=== PATIENT | male | born 1960 | race Caucasian/White ===

== ENCOUNTER → 2017-09-02 | Outpatient (CLI) | payer MEDICARE ==
--- NOTE | 2017-09-02 19:49 | MR ---
EXAMINATION TYPE: MR brain wo/w con DATE OF EXAM: 09/02/2017 7:29 PM COMPARISON: NONE HISTORY: Hypertensive, Papilledema w increased intracranial pressure Pt has history as a child of falling down cement stairs, resulting in deformed skull CONTRAST: Patient received 7.5 mL intravenous Gadavist gadolinium contrast. Multiplanar and multispin-echo imaging of the brain was performed . Pre and post contrast enhanced i mages are obtained. The ventricles, basal cisterns and sulci overlying the cerebral convexities are mildly enlarged. There is evidence of mild periventricular white matter ischemic demyelination. Remote area of encephalomalacia right frontal parietal region with surrounding gliosis. Calvarial def ect may be postoperative in nature or posttraumatic in nature. Remote deep white matter insults are also noted. No acute edema is seen on diffusion weighted imaging. Incidental partially empty sella noted. There is no evidence for midline shift or mass effect. Acute intracranial hemorrhage or extra-axial collection is not evident. No enhancing lesions are seen. The mastoid air cells are well-aerated. Chronic paranasal sinusitis. IMPRESSION: 1. Remote area of encephalomalacia right frontal parietal region with surrounding gliosis. Calvarial defect may be postoperative in nature or posttraumatic in nature. 2. No definite optic nerve edema. Consider dedicated evaluation of the orbits for improved characteri zation.
== END | disposition home or self-care (01) ==
LOC: RADMRIMAIN 17:47
PROVIDERS: ATTEND Ophthalmology
DX: H47.11 Papilledema associated with increased intracranial pressure (principal)
CPT/HCPCS: 82565; 84520; 70553; 36415; A9581

== ENCOUNTER → 2018-05-03 | Outpatient (CLI) | payer MEDICARE ==
[2018-05-03 12:05] LABS: HCT 48.5 % (39.0-53.0); HGB 15.9 gm/dL (13.0-17.5); MCH 30.4 pg (25.0-35.0); MCHC 32.9 g/dL (31.0-37.0); MCV 92.4 fL (80.0-100.0); Mean Platelet Volume 6.8; Platelet Count 217 k/uL (150-450); RBC 5.25 m/uL (4.30-5.90); RDW 14.1 % (11.5-15.5); WBC 6.5 k/uL (3.8-10.6)
[2018-05-03 12:16] LABS: Anion Gap 7 mmol/L; Blood Urea Nitrogen 18 mg/dL (9-20); Carbon Dioxide 27 mmol/L (22-30); Chloride 107 mmol/L (98-107); Potassium 4.4 mmol/L (3.5-5.1); Sodium 141 mmol/L (137-145)
== END | disposition home or self-care (01) ==
LOC: LABPAT 11:12
PROVIDERS: ATTEND Internal Medicine Interventional Cardiology
DX: Z01.812 Encounter for preprocedural laboratory examination (principal); I25.5 Ischemic cardiomyopathy; I25.10 Atherosclerotic heart disease of native coronary artery without angina pectoris; I10 Essential (primary) hypertension; E78.2 Mixed hyperlipidemia
CPT/HCPCS: 36415; 80051; 82565; 84520; 85027

== ENCOUNTER 2018-05-17 10:42 | Day surgery (SDC) | payer MEDICARE ==
[2018-05-13 09:13] VITALS: BMI 29.4
[~2018-05-17 10:42] MED LIST: ALPRAZolam 0.25 MG TAB PO PRN; ALPRAZolam 0.5 MG TAB PO PRN; ASPIRIN 325 MG TAB PO STA; ATORVASTATIN 80 MG TAB PO STA; NITROGLYCERIN SL TABS 0.4 MG TAB SUBLINGUAL PRN; SODIUM CHLORIDE 0.9% 1,000 ML in EMPTY BAG 1 BAG IV ONE
[2018-05-17 11:09] VITALS: TEMP 98.1
[2018-05-17] MEDS ORDERED: VERAPAMIL 2.5 MG/ML 2 ML AMP ONE (12:10)
[2018-05-17] MEDS ORDERED: LIDOCAINE 1% INJ 10MG/ML (20 ML MDV) ONE (12:10)
[2018-05-17] MEDS ORDERED: MIDAZOLAM 2 MG/2 ML VIAL ONE (12:10)
[2018-05-17] MEDS ORDERED: HEPARIN SODIUM 1,000 UN/ML (10ML VL) ONE (12:10)
[2018-05-17] MEDS ORDERED: MIDAZOLAM 2 MG/2 ML VIAL IVP ONE (12:21)
[2018-05-17] MEDS ORDERED: LIDOCAINE 1% INJ 10MG/ML (20 ML MDV) SQ ONE (12:22)
[2018-05-17] MEDS ORDERED: VERAPAMIL SYRINGE (5 MG/10 ML) INTRAARTER ONE (12:25)
[2018-05-17] MEDS ORDERED: HEPARIN SODIUM 1,000 UN/ML (10ML VL) IV ONE (12:27)
[2018-05-17] MEDS ORDERED: IOPAMIDOL-370 125ML BTL INJ ONE (12:42)
[2018-05-17] MEDS ORDERED: RX INFO: IV CONTRAST WAS GIVEN 1 EACH MISC MISCELLANE PRN (12:43)
[2018-05-17] MEDS ORDERED: SODIUM CHLORIDE 0.9% 1,000 ML IV SCH (12:45)
--- NOTE | 2018-05-17 13:15 | CC ---
CARDIAC CATHETERIZATION REPORT DATE OF SERVICE: May 17, 2018 PERFORMING PHYSICIAN: Ray Nguyen MD, substation operator automatic. PROCEDURE PERFORMED: 1. Selective right and left coronary angiogram. 2. Left heart catheterization. INDICATION: This is a pleasant 57-year-old gentleman with known history of coronary artery disease and prior stenting of the proximal and mid RCA as well as stenting of the mid LAD, was experiencing chest discomfort and exertional dyspnea and underwent myocardial perfusion imaging stress test and that revealed reversible defect involving the lateral wall. Because of that, a heart catheterization was advised. APPROACH: Right radial artery. COMPLICATION: None. LEVEL OF SEDATION: Moderate with sedation length of 18 minutes. PROCEDURE DESCRIPTION: After obtaining an informed consent, the patient was brought to the laborer hoisting. The right radial artery was cannulated using micropuncture technique, the micropuncture wire passed easily then I placed a 6-[place] sheath in the right radial artery. After that, I gave the patient 2 mg of verapamil IA and 6000 units heparin IV. Selective right and left coronary angiogram performed using JR4 and JL3.5 catheters. Left heart catheterization was performed using JR4 catheter which flipped into the LV. Then I did pullback across the aortic valve. The procedure was completed without any complication. SELECTIVE CORONARY ANGIOGRAM: 1. The right coronary artery is a large caliber vessel. It is a dominant vessel. The proximal and mid RCA are stented and the stents are patent. The mid RCA is normal after that and the RCA distally is normal. It bifurcates into PDA and PLV branches, both have mild disease only. 2. The left main: The left main has plaque appeared to be in the range of 30%. Bifurcates into left circumflex, ramus intermedius, and left anterior descending artery. 3. The left circumflex is a large caliber vessel. It is a nondominant vessel. The left circumflex is a medium caliber vessel. It is a nondominant vessel. The proximal circumflex appeared to be angiographically normal and gives rise into a small OM, which appeared to be angiographically normal and the mid and distal circumflex are normal as well. 4. The LAD: The proximal LAD appears to have a plaque in the range of 30%. This is by the bifurcation of a diagonal which appeared to be angiographically normal. The mid LAD appeared to be stented and the stent is patent. The LAD distally appeared to be angiographically normal. HEMODYNAMICS: The left ventricular end-diastolic pressure was 16 to 18 mmHg without significant gradient across the aortic valve. CONCLUSION: 1. Patent stent in the proximal and mid right coronary artery. 2. Patent stent in the mid left anterior descending artery. 3. Plaque in the left main coronary artery appeared to be in the range of 30%. POSTPROCEDURE MANAGEMENT: 1. Maximize medical treatment. 2. Follow up with the patient. MMODL / IJN: [id number] /
--- NOTE | 2018-05-17 13:36 | LTR ---
May 17, 2018 RE: Kyle Petr Dear Dr. Carrillo: Kyle Humphreys underwent a heart catheterization today and that revealed patent stent in both the right coronary artery and left anterior descending artery with disease involving the left main appeared to be in the range of 30% only. I did recommend maximized medical treatment and risk factors modification including aggressive cholesterol control. I will continue following up with him. I want to thank you for allowing me to participate in his care and please do not hesitate to call if you have any question or concern. Sincerely, MD MATHEW Carvalho / SANDRITA: [id number] /
[2018-05-17 16:03] VITALS: BP 146/88; PULSE 64; RESP 18
== END 2018-05-17 17:40 | disposition home or self-care (01) ==
LOC: CATHCVL 10:42
PROVIDERS: ATTEND Internal Medicine Interventional Cardiology
DX: I25.110 Atherosclerotic heart disease of native coronary artery with unstable angina pectoris (principal); I10 Essential (primary) hypertension; Z87.891 Personal history of nicotine dependence; Z95.5 Presence of coronary angioplasty implant and graft; E78.5 Hyperlipidemia, unspecified; I25.5 Ischemic cardiomyopathy; E78.00 Pure hypercholesterolemia, unspecified; Z79.82 Long term (current) use of aspirin; Z79.899 Other long term (current) drug therapy; Z91.09 Other allergy status, other than to drugs and biological substances
CPT/HCPCS: 93458; C1769; C1894; J2250; J2001; J1644; Q9967

== ENCOUNTER → 2019-01-26 | Outpatient (CLI) | payer MEDICARE ==
[2019-01-26 11:33] LABS: Basophils % (A) 1 %; Eosinophils # (A) 0.2 k/uL (0-0.7); Eosinophils % (A) 3 %; HCT 46.4 % (39.0-53.0); HGB 15.4 gm/dL (13.0-17.5); Lymphocytes # (A) 2.3 k/uL (1.0-4.8); Lymphocytes % (A) 27 %; MCH 30.6 pg (25.0-35.0); MCHC 33.2 g/dL (31.0-37.0); Mean Platelet Volume 7.3; Monocytes # (A) 0.5 k/uL (0-1.0); Monocytes % (A) 6 %; Neutrophils # (A) 5.1 k/uL (1.3-7.7); Neutrophils % (A) 61 %; Platelet Count 227 k/uL (150-450); Potassium 4.2 mmol/L (3.5-5.1); RBC 5.04 m/uL (4.30-5.90); RDW 15.7 % (11.5-15.5); WBC 8.5 k/uL (3.8-10.6)
== END | disposition home or self-care (01) ==
LOC: LABWHC1 10:32
PROVIDERS: ATTEND Orthopaedic Surgery
DX: Z01.812 Encounter for preprocedural laboratory examination (principal); G56.01 Carpal tunnel syndrome, right upper limb
CPT/HCPCS: 36415; 80051; 85025

== ENCOUNTER 2019-02-02 08:00 | Day surgery (SDC) | payer MEDICARE ==
[2019-01-26 16:04] VITALS: BMI 29.7
--- NOTE | 2019-01-31 21:47 | HP ---
HISTORY AND PHYSICAL DATE OF SURGERY: 02/02/2019 Kyle Humphreys is a 58-year-old patient seen with symptomatic right carpal tunnel syndrome. After treatment options were discussed with him, he elected to proceed with decompression of right median nerve. Consent regarding the procedure was obtained. PAST MEDICAL HISTORY: 1. Hypertension. 2. Hyperlipidemia. 3. Cardiovascular disease. 4. Depression. PAST SURGICAL HISTORY: Cardiac catheterization with stent insertion. DAILY MEDICATIONS: 1. Aspirin. 2. Atorvastatin. 3. Isosorbide. 4. Metoprolol. 5. Quinapril. 6. Zantac. ALLERGIES: NIACIN. SOCIAL HISTORY: He smokes half pack of cigarettes daily. PHYSICAL EVALUATION OF HIS RIGHT HAND: He has a positive carpal compression and carpal Tinel's causing numbness and tingling to the median nerve distribution. There is some decreased sensation throughout the median nerve distribution. There is no tenderness along the A1 isabel areas. He has good perfusion distally and a good radial pulse present. RADIOGRAPHS: Radiographs of the right wrist revealed some osteoarthritic changes. EMG of the right upper extremity revealed carpal tunnel syndrome. IMPRESSION: 1. Right carpal tunnel syndrome. 2. Hypertension. 3. Hyperlipidemia. 4. Cardiovascular disease. 5. Gastroesophageal reflux disease. PLAN: Decompression of right median nerve. MMODL / IJN: [id number] /
[~2019-02-02 08:00] MED LIST changes: -ALPRAZolam 0.25 MG TAB PO PRN; -ALPRAZolam 0.5 MG TAB PO PRN; -ASPIRIN 325 MG TAB PO STA; -ATORVASTATIN 80 MG TAB PO STA; +DEXAMETHASONE SOD PHOSPHATE 10 MG/ML 1 ML VIAL IV ONE; +HYDROmorphone 0.5 MG/0.5 ML SYRINGE IVP PRN; +LACTATED RINGERS 1,000 ML IV SCH; +MIDAZOLAM 2 MG/2 ML VIAL IV PRN; -NITROGLYCERIN SL TABS 0.4 MG TAB SUBLINGUAL PRN; +ONDANSETRON 4 MG/2 ML VIAL IVP ONE; +Pre Op ABX Message 1 EACH MISC MISCELLANE ONE; +SCOPOLAMINE 1.5MG/72HR PATCH TRANSDERM ONE; -SODIUM CHLORIDE 0.9% 1,000 ML in EMPTY BAG 1 BAG IV ONE
[2019-02-02 08:30] VITALS: TEMP 97.2
[2019-02-02] MEDS ORDERED: MIDAZOLAM 2 MG/2 ML VIAL ONE (09:57)
[2019-02-02] MEDS ORDERED: fentaNYL (PF) 50 MCG/ML 2 ML AMP ONE (09:57)
[2019-02-02] MEDS ORDERED: PROPOFOL 10 MG/ML 20 ML VIAL IV ONE (09:57)
[2019-02-02] MEDS ORDERED: BUPIVACAINE (PF) 0.25% 30 ML VIAL SQ ONE ×2 (10:12→10:18)
--- NOTE | 2019-02-02 10:26 | P.OP ---
Date of Procedure: 02/02/19 Preoperative Diagnosis: Right carpal tunnel syndrome Postoperative Diagnosis: Right carpal tunnel syndrome Procedure(s) Performed: Decompression right median nerve Anesthesia: MAC, local Surgeon: Suleiman Francis Estimated Blood Loss (ml): 0 Pathology: none sent Condition: stable Disposition: PACU Indications for Procedure: 58-year-old patient seen with symptomatic right carpal syndrome. After treatment options were discussed, he elected to proceed with decompression right median nerve. Operative Findings: see description of procedure Description of Procedure: Patient was taken to the operative suite. The patient received preoperative IV antibiotics. The patient underwent IV sedation by the department of anesthesia. A well-padded tourniquet was placed proximal right upper extremity. The right upper extremity was prepped and draped in the normal sterile orthopedic fashion. The proposed incision site was infiltrated with 10 mL quarter percent plain Marcaine. When sufficient local analgesia was noted the extremity was elevated and tourniquet was insufflated to 250. An incision was now made beginning at the distal volar wrist crease extending distally approximately 3 cm in line with the fourth metacarpal sharply through skin. I dissected down through the palmar fascia to the transverse carpal ligament. I then incised the transverse carpal ligament. I released the transverse carpal ligament proximally and distally with blunt Metzenbaums. There was good complete release of the transverse carpal ligament was good decompression of the nerve. There was good hemostasis. The wound was irrigated. The skin margins were proximal nylon suture. Sterile dressings were applied. The tourniquet was released and immediate capillary refill noted of the extremity. The patient was now awakened, transferred to recovery in stable condition having tolerated procedure well.
[2019-02-02 10:33] VITALS: RESP 18
[2019-02-02 11:11] VITALS: BP 137/78; PULSE 78
== END 2019-02-02 11:13 | disposition home or self-care (01) ==
LOC: OR 08:00
PROVIDERS: ATTEND Orthopaedic Surgery
DX: G56.01 Carpal tunnel syndrome, right upper limb (principal); I10 Essential (primary) hypertension; E78.5 Hyperlipidemia, unspecified; I25.10 Atherosclerotic heart disease of native coronary artery without angina pectoris; Z95.5 Presence of coronary angioplasty implant and graft; I25.2 Old myocardial infarction; F32.9 Major depressive disorder, single episode, unspecified; K21.9 Gastro-esophageal reflux disease without esophagitis; F17.210 Nicotine dependence, cigarettes, uncomplicated; Z79.82 Long term (current) use of aspirin; Z79.899 Other long term (current) drug therapy; Z88.8 Allergy status to other drugs, medicaments and biological substances
CPT/HCPCS: 64721; J2250; J1100; J0690; J2405; J3010; J2704

== ENCOUNTER → 2019-07-21 | Outpatient (CLI) | payer MEDICARE ==
--- NOTE | 2019-07-23 19:34 | MR ---
MR pancreas, MRCP with and without contrast HISTORY: Pancreatic cyst Multiplanar multisequence imaging through the pancreas, biliary system, three-dimensional reconstruct ions performed on an alternate workstation. Previous CT scan from outside institution is unavailable for correlation At the level of the uncinate process of the pancreas there is a T1 intermediate, T2 hyperintense focu s with internal septations measuring approximately 2 cm in greatest transverse dimension by 1.7 cm in AP dimension by 2.8 cm in cephalad to caudal dimension. There is possibly a communication with the p ancreatic duct on T2 and three-dimensional reconstructions. There is no ductal dilation. There is no evident enhancement, no enhancing mural nodule at the. Signal drop in the liver on out of phase imaging suggests hepatic steatosis. No evident adrenal mass. There is a small hiatal hernia. Lung bases are clear. Gallbladder is normal. Kidneys and adrenal gla nds are within normal limits. Spleen is unremarkable. There is no bowel obstruction. Aorta shows norm al caliber. No retroperitoneal adenopathy or ascites. IMPRESSION: Favor intraductal papillary mucinous neoplasm. Follow-up is recommended to assess for sta bility, any interval change.
== END | disposition home or self-care (01) ==
LOC: RADMRIMAIN 16:50
PROVIDERS: ATTEND Surgery
DX: K86.2 Cyst of pancreas (principal)
CPT/HCPCS: 74183; A9585

== ENCOUNTER → 2020-01-05 | Outpatient (CLI) | payer MEDICARE ==
--- NOTE | 2020-01-06 03:03 | MR ---
EXAMINATION TYPE: MR pancreas / mrcp wo/w con DATE OF EXAM: 01/05/2020 COMPARISON: HISTORY: Evaluate pancreatic cyst CONTRAST: Standard multiplanar, multisequence MRI departmental protocol utilizing 9 mL intravenous Gadavist mere olinium contrast. The liver shows no focal defect. Gallbladder appears normal. Bile ducts are not dilated. There is no evidence of pleural effusion. Heart size appears normal. Spleen appears normal. Stomach appears jem l. Pancreatic duct appears normal. There is 16mm thin-walled septated cystic area in the posterior aspec t of the head of the pancreas. This is in the uncinate process. Previous exam measures 14 mm. The stomach appears normal. Duodenum appears normal. There is no adrenal mass. Kidneys have normal si ze. There is no hydronephrosis. There is 7 mm cortical cyst anterior right kidney. Ureters are not di lated. There is no evidence of retroperitoneal adenopathy. There is no ascites. Contrast images show no enhancement of the pancreatic cystic mass. There is no pathologic abdominal enhancement. IMPRESSION: There is thin walled septated nonenhancing cystic mass in the posterior pancreatic head that is not c hanged allowing for error of measurement compared to old exam. This suggests a benign etiology. This could BE a pseudocyst. Otherwise negative exam.
== END | disposition home or self-care (01) ==
LOC: RADMRIMAIN 12:31
PROVIDERS: ATTEND Surgery
DX: K86.2 Cyst of pancreas (principal)
CPT/HCPCS: 74183; A9585

== ENCOUNTER → 2020-01-11 | Outpatient (CLI) | payer MEDICARE ==
--- NOTE | 2020-01-11 13:56 | US ---
EXAMINATION TYPE: US venous doppler duplex UE RT DATE OF EXAM: 01/11/2020 COMPARISON: NONE CLINICAL HISTORY: M79.621 Pain in right upper arm. Recent IV SIDE PERFORMED: Right Grayscale, color doppler, spectral doppler imaging performed of the deep veins of the right upper ext remity. There is normal flow, compressibility and vascular waveforms noted within the deep veins. Visualized portions of the right internal jugular vein, subclavian vein, axillary vein, brachial vei ns, the cephalic vein, radial veins and ulnar veins are unremarkable. Basilic vein shows low level internal echoes and lack of color flow. Right Arm: Negative for DVT. Positive for SVT in the right basilic vein IMPRESSION:
== END | disposition home or self-care (01) ==
LOC: RADUSWWP 12:24
PROVIDERS: ATTEND Internal Medicine
DX: M79.621 Pain in right upper arm (principal)

== ENCOUNTER 2021-01-08 10:25 | Day surgery (SDC) | payer MEDICARE ==
[2021-01-07 09:07] VITALS: BMI 31.6
--- NOTE | 2021-01-07 18:44 | HP ---
HISTORY AND PHYSICAL DATE OF SURGERY: 01/08/2021 Kyle Humphreys is a 60-year-old gentleman seen with symptomatic left carpal tunnel syndrome. We discussed options for treatment. He elected to proceed with decompression left median nerve. Consent was obtained his. PAST MEDICAL HISTORY: Hyperlipidemia, hypertension, coronary artery disease. PAST SURGICAL HISTORY: Cardiac catheterization with stent insertion. DAILY MEDICATIONS: Atorvastatin, furosemide, isosorbide, metoprolol, nitroglycerin as needed, quinapril. ALLERGIES: None reported. SOCIAL HISTORY: Smokes half pack of cigarettes a day. PHYSICAL EVALUATION OF THE LEFT WRIST: He has a positive carpal compression and carpal Tinel's causing increased numbness and tingling throughout the median nerve distribution. He does have some decreased sensation throughout the median nerve distribution. He is nontender along the A1 isabel sites. He has a good radial pulse. There is good perfusion distally. RADIOGRAPHS: Radiographs of the left hand and wrist reveal some osteoarthritic changes. IMPRESSION: 1. Left carpal tunnel syndrome. 2. Hypertension. 3. Hyperlipidemia. 4. Gastroesophageal reflux disease. 5. coronary artery disease. PLAN: Decompression left median nerve. MMODL / IJN: [id number] /
[~2021-01-08 10:25] MED LIST changes: -DEXAMETHASONE SOD PHOSPHATE 10 MG/ML 1 ML VIAL IV ONE; -HYDROmorphone 0.5 MG/0.5 ML SYRINGE IVP PRN; +LIDOCAINE 1% (10MG/ML) FOR IV START INTRADERMA PRN; -MIDAZOLAM 2 MG/2 ML VIAL IV PRN; -ONDANSETRON 4 MG/2 ML VIAL IVP ONE; -Pre Op ABX Message 1 EACH MISC MISCELLANE ONE; -SCOPOLAMINE 1.5MG/72HR PATCH TRANSDERM ONE
[2021-01-08 11:09] VITALS: RESP 16; TEMP 97.4
[2021-01-08] MEDS ORDERED: ONDANSETRON 4 MG/2 ML VIAL ONE (11:20)
[2021-01-08] MEDS ORDERED: DEXAMETHASONE SOD PHOSPHATE 4 MG/ML 1 ML VIAL IVP ONE (11:25)
[2021-01-08] MEDS ORDERED: MIDAZOLAM 2 MG/2 ML VIAL ONE (12:02)
[2021-01-08] MEDS ORDERED: PROPOFOL 10 MG/ML 20 ML VIAL IV ONE (12:02)
[2021-01-08] MEDS ORDERED: fentaNYL (PF) 50 MCG/ML 2 ML AMP ONE (12:02)
[2021-01-08] MEDS ORDERED: BUPIVACAINE (PF) 0.25% 30 ML VIAL SQ ONE (12:04)
--- NOTE | 2021-01-08 12:42 | P.OP ---
Date of Procedure: 01/08/21 Preoperative Diagnosis: Left carpal tunnel syndrome Postoperative Diagnosis: Left carpal tunnel syndrome Procedure(s) Performed: Decompression left median nerve Anesthesia: MAC, local Surgeon: Suleiman Francis Estimated Blood Loss (ml): 1 Pathology: none sent Condition: stable Disposition: PACU Indications for Procedure: 60-year-old patient seen with symptomatic left carpal tunnel syndrome. After treatment options were discussed, he elected to proceed with decompression left median nerve. Consent was obtained. Operative Findings: See description of procedure Description of Procedure: The patient was taken to the operative suite. He received preoperative IV antibiotics. He underwent IV sedation by the department of anesthesia. A well- padded tourniquet was placed along the proximal left upper extremity. Left upp er extremity was prepped and draped in the normal sterile orthopedic fashion. The proposed incision site was infiltrated with 10 mL quarter percent plain Marcaine. When sufficient local analgesia was noted the extremity was elevated and tourniquet was insufflated to 250. I now made an incision beginning at the distal volar wrist crease extending distally approximately 3 cm in line with the fourth metacarpal sharply through skin. I dissected down through the palmar fascia to the transverse carpal ligament. I made a small incision to the transverse carpal ligament. I now released. Transverse carpal ligament proximally and distally with blunt Metzenbaums. I noted complete release of the ligament with good decompression of the nerve. The wound was irrigated. We had good hemostasis. The skin margins were proximal nylon suture. Sterile dressings were applied. The tourniquet was released with immediate capillary refill of the entire hand and all digits noted. The patient was then awakened, transferred to recovery in stable condition.
[2021-01-08 13:11] VITALS: BP 129/75; PULSE 74
== END 2021-01-08 13:36 | disposition home or self-care (01) ==
LOC: OR 10:25
PROVIDERS: ATTEND Orthopaedic Surgery
DX: G56.02 Carpal tunnel syndrome, left upper limb (principal); I25.10 Atherosclerotic heart disease of native coronary artery without angina pectoris; I10 Essential (primary) hypertension; E78.5 Hyperlipidemia, unspecified; K21.9 Gastro-esophageal reflux disease without esophagitis; J44.9 Chronic obstructive pulmonary disease, unspecified; Z95.5 Presence of coronary angioplasty implant and graft; F17.210 Nicotine dependence, cigarettes, uncomplicated; Z79.899 Other long term (current) drug therapy; Z79.82 Long term (current) use of aspirin; Z91.048 Other nonmedicinal substance allergy status
CPT/HCPCS: 64721; J2250; J1100; J0690; J2405; J3010; J2704

== ENCOUNTER → 2022-11-28 | Outpatient (CLI) | payer MEDICARE ==
--- NOTE | 2022-11-28 20:14 | PE ---
EXAMINATION TYPE: PET CT fusion skull to thigh DATE OF EXAM: 11/28/2022 CLINICAL INDICATION:Male, 62 years old with history of R91.1; TECHNIQUE: Following the intravenous administration of 13.7 mCi of F-18 FDG, whole body images are performed from the skull base to the midthigh. Images are reviewed on the computer in the coronal, a xial, and sagittal planes. Reconstructed rotating images are created on independent workstation and reviewed on the computer. A non-contrast CT is performed in conjunction with the PET scan. Glucose level 88 mg/dL COMPARISON: CT 07/28/2022, PET/CT None, FINDINGS: Mediastinal SUV mean is 1.1. Hepatic parenchyma SUV mean is 1.9. SKULL BASE AND NECK: No suspicious radiotracer activity. Focus of uptake within the left jaw compati ble with periodontal disease. SUV 4.4. CHEST, MEDIASTINUM, AND HILAR REGION: Subcentimeter pulmonary nodules seen on prior CT are below threshold for PET/CT. Consolidation changes in the left lung base no longer visualized. No abnormal FDG activity. ABDOMEN AND PELVIS: No suspicious radiotracer activity. OSSEOUS STRUCTURES: No suspicious radiotracer activity. Left rotator cuff degeneration with max SUV [address]: Atherosclerosis of the carotid bifurcations. Moderate coronary artery atherosclerosis. Bila teral gynecomastia changes. Questionable gallstone present. Fat-containing umbilical hernia. Bilatera l fat-containing inguinal hernias. IMPRESSION: No suspicious radiotracer activity. Consolidation changes in the left lung base have resolved and lik joanna represented an infectious/inflammatory process on prior CT. Consider follow-up CT for sub-5 mm pu lmonary nodules in 1 year.
== END | disposition home or self-care (01) ==
LOC: RADPETMAIN 12:07
PROVIDERS: ATTEND Internal Medicine
DX: R91.1 Solitary pulmonary nodule (principal)
CPT/HCPCS: 78815; A9552

== ENCOUNTER → 2023-09-14 | Outpatient (CLI) | payer MEDICARE ==
[2023-09-14 21:09] LABS: ALT 19 U/L (10-49); AST 16 U/L (14-35); Albumin 4.2 g/dL (3.8-4.9); Albumin/Globulin Ratio 1.35 Ratio (1.60-3.17); Alkaline Phosphatase 76 U/L (41-126); Blood Urea Nitrogen 11.3 mg/dL (9.0-27.0); Calcium 9.6 mg/dL (8.7-10.3); Carbon Dioxide 24.1 mmol/L (21.6-31.8); Chloride 104 mmol/L (96-109); Globulin 3.1 g/dL (1.6-3.3); Glucose 106 mg/dL (70-110); Potassium 4.4 mmol/L (3.5-5.5); Sodium 143 mmol/L (135-145); Total Bilirubin 0.4 mg/dL (0.3-1.2); Total Protein 7.3 g/dL (6.2-8.2)
[2023-09-14 21:52] LABS: Basophils # (A) 0.05 X 10*3/uL (0.00-0.10); Basophils % (A) 0.4 %; Eosinophils # (A) 0.08 X 10*3/uL (0.04-0.35); Eosinophils % (A) 0.7 %; HCT 48.2 % (39.6-50.0); HGB 15.1 g/dL (13.0-17.0); Lymphocytes # (A) 1.77 X 10*3/uL (0.90-5.00); Lymphocytes % (A) 15.4 %; MCH 27.9 pg (27.0-32.0); MCHC 31.3 g/dL (32.0-37.0); MCV 89.1 FL (80.0-97.0); Monocytes # (A) 0.98 X 10*3/uL (0.20-1.00); Monocytes % (A) 8.5 %; NRBC Per 100 WBC 0 X 10*3/uL (0.00-0.01); Neutrophils # (A) 8.55 X 10*3/uL (1.80-7.70); Neutrophils % (A) 74.7 %; Platelet Count 277 X 10*3/uL (140-440); RBC 5.41 X 10*6/uL (4.40-5.60); RDW 16.1 % (11.5-14.5); WBC 11.47 X 10*3/uL (4.50-10.00)
== END | disposition home or self-care (01) ==
LOC: LABWHC1 15:38
PROVIDERS: ATTEND Internal Medicine
DX: R09.1 Pleurisy (principal)
CPT/HCPCS: 36415; 80053; 85025; 85379

== ENCOUNTER → 2023-12-20 | Outpatient (CLI) | payer MEDICARE ==
--- NOTE | 2023-12-20 16:04 | CTL ---
EXAMINATION TYPE: CT Low Dose Lung DATE OF EXAM ORDERED: 12/20/2023 History: Lung cancer screening CT DLP: 101.[address] CTDI: 2.6 mGy Automated exposure control for dose reduction was used. Comparison: 07/28/2022 TECHNIQUE: Low dose computed tomography scan was performed through the chest at 1 mm thick sections a nd reconstructed images in multiple planes at 1 mm and [address] DIAGNOSTIC QUALITY: Satisfactory FINDINGS: There are mild emphysematous changes. There are multiple stable sub-5 mm calcified nodules in the right lung. No new or suspicious lung mas ses or nodules are seen. There is no airspace consolidation or abnormal interstitial density. The great vessels chest are normal as no mediastinal, hilar or axillary adenopathy. There is no pleural effusion or pneumothorax. Limited scanning through the upper abdomen reveals no significant abnormality. No focal osseous lesions are seen. IMPRESSION: 1. Multiple stable calcified granulomas. Lung metastases category 1 negative. Continue routine screen ing at yearly intervals. 2. No acute cardiopulmonary disease. 3. Mild emphysematous changes.
== END | disposition home or self-care (01) ==
LOC: RADCTMAIN 15:08
PROVIDERS: ATTEND Internal Medicine
DX: Z12.2 Encounter for screening for malignant neoplasm of respiratory organs (principal); J84.10 Pulmonary fibrosis, unspecified; Z87.891 Personal history of nicotine dependence
CPT/HCPCS: 71271

== ENCOUNTER 2024-03-24 09:15 | Day surgery (SDC) | payer MEDICARE ==
[2024-03-24] MEDS: IV FLUID CONTINUATION 1,000 ML IV ONE (09:33)
[2024-03-24] MEDS: LACTATED RINGERS 1,000 ML IV SCH (09:47)
[2024-03-24 09:50] VITALS: RESP 16; TEMP 97
[2024-03-24] MEDS ORDERED: PROPOFOL 10 MG/ML 20 ML VIAL IV ONE (10:29)
[2024-03-24] MEDS ORDERED: LIDOCAINE 1% INJ 10MG/ML (20 ML MDV) ONE (10:29)
--- NOTE | 2024-03-24 10:55 | P.PCN ---
Date of Procedure: 03/24/24 Procedure(s) Performed: BRIEF HISTORY: Patient is a 63-year-old pleasant white meat scheduled for an elective colonoscopy as a part of screening for colon cancer/positive Cologuard PROCEDURE PERFORMED: Colonoscopy. PREOPERATIVE DIAGNOSIS: Positive Cologuard. IV sedation per Anesthesia. PROCEDURE: After informed consent was obtained, the patient, was brought into the endoscopy unit. IV sedation was administered by Anesthesia under continuous monitoring. Digital rectal examination was normal. Initially the Olympus CF-160 flexible video colonoscope was then inserted in the rectum, gradually advanced into the cecum without any difficulty. Careful examination was performed as the scope was gradually being withdrawn. Ileocecal valve and the appendiceal orifice were visualized and appeared normal. Prep was excellent. Mucosa of the cecum, ascending colon, transverse colon, descending colon, sigmoid colon, and rectum appeared normal. Retroflexion was performed in the rectum and no lesions were seen. The patient tolerated the procedure well. IMPRESSION: Normal-appearing colon from rectum to cecum with no evidence of colorectal neoplasia. RECOMMENDATIONS: Findings of this examination were discussed with the patient as well as his family. He was advised to have repeat screening colonoscopy in 10 years..
[2024-03-24 11:03] VITALS: PULSE 71
[2024-03-24 11:20] VITALS: BP 111/70
== END 2024-03-24 11:34 | disposition home or self-care (01) ==
LOC: ORWHC2ENDO 09:15
PROVIDERS: ATTEND Internal Medicine Gastroenterology
CPT/HCPCS: 45378

== ENCOUNTER → 2024-04-27 | Outpatient (CLI) | payer MEDICARE ==
[2024-04-27 09:56] LABS: African American GFR (CKD) >90 (>60 ml/min/1.73 sqM); Blood Urea Nitrogen 17 mg/dL (9-20); Non-African American GFR(CKD) >90 (>60 ml/min/1.73 sqM)
--- NOTE | 2024-04-27 11:11 | CT ---
FINDINGS: There is a small calcified granuloma in the right lung base otherwise the visualized lung bases are c lear. On the pre-IV contrast images, there are no renal calcifications or ureteral calcifications. There a re no gallstones. The gallbladder is normal and there is no distention or biliary ductal dilatation. There are no focal masses within the liver, pancreas, spleen or adrenal glands and there is no organo megaly. There is a 10 to 11 mm mass in the anterior lateral right kidney which does enhance following contras t administration. It is a simple cyst and neoplasm cannot be excluded. MRI of the kidneys might be us eful for further evaluation. There are no solid renal masses on the left. There is a tiny cortical cy st. There is no hydronephrosis. There are no filling defects within the opacified collecting systems or urinary bladder. Caliber of the abdominal aorta is normal. The bowel loops are normal in caliber and there is no dilatation or obstruction. No inflammatory redd ges are identified in the bowel wall or mesentery. There is no free intraperitoneal air or fluid. There is no pelvic mass, free fluid, abscess or adenopathy. There is mild prosthetic enlargement. The osseous structures are intact. IMPRESSION: 1. Small 10 to 11 mm enhancing mass in the right kidney in the implant and cannot be excluded. MRI of the kidneys might be useful for further evaluation. 2. No renal calcifications or hydronephrosis 3. No filling defects within the urinary collecting systems or urinary bladder. 4. Mild prostate hypertrophy. [facility], , 04/27/2024 11:08 AM
== END | disposition home or self-care (01) ==
LOC: RADCTMAIN 09:16
PROVIDERS: ATTEND Internal Medicine
DX: N28.9 Disorder of kidney and ureter, unspecified (principal); R82.89 Other abnormal findings on cytological and histological examination of urine; N40.0 Benign prostatic hyperplasia without lower urinary tract symptoms
CPT/HCPCS: 82565; 84520; 74178; 36415; 74400; Q9967

== ENCOUNTER 2024-04-28 13:08 | Inpatient (IN) | payer MEDICARE ==
[2024-04-28 13:51] LABS: Basophils # (A) 0.1 k/uL (0-0.2); Basophils % (A) 1 %; Eosinophils # (A) 0.1 k/uL (0-0.7); Eosinophils % (A) 2 %; HCT 47.3 % (39.0-53.0); HGB 15.4 gm/dL (13.0-17.5); Lymphocytes # (A) 2.9 k/uL (1.0-4.8); Lymphocytes % (A) 32 %; MCH 28.5 pg (25.0-35.0); MCHC 32.5 g/dL (31.0-37.0); MCV 87.7 fL (80.0-100.0); Mean Platelet Volume 7.5; Monocytes # (A) 0.4 k/uL (0-1.0); Monocytes % (A) 5 %; Neutrophils # (A) 5.1 k/uL (1.3-7.7); Neutrophils % (A) 57 %; Platelet Count 244 k/uL (150-450); RDW 15.1 % (11.5-15.5); WBC 8.9 k/uL (3.8-10.6)
[2024-04-28] MEDS: SODIUM CHLORIDE 0.9% 1,000 ML IV STA (13:52)
[2024-04-28] MEDS: KETOROLAC 15 MG/ML 1 ML VIAL IVP STA (13:52)
[2024-04-28 14:03] LABS: ALT 22 U/L (4-49); African American GFR (CKD) >90 (>60 ml/min/1.73 sqM); Albumin 4.7 g/dL (3.5-5.0); Amylase 57 U/L (30-110); Anion Gap 8 mmol/L; Blood Urea Nitrogen 19 mg/dL (9-20); Calcium 9.1 mg/dL (8.4-10.2); Carbon Dioxide 26 mmol/L (22-30); Chloride 106 mmol/L (98-107); Glucose 88 mg/dL (74-99); Lipase 126 U/L (23-300); Non-African American GFR(CKD) 87 (>60 ml/min/1.73 sqM); Sodium 140 mmol/L (137-145); Total Bilirubin 0.7 mg/dL (0.2-1.3); Total Protein 7.7 g/dL (6.3-8.2)
[2024-04-28 14:05] LABS: Appearance,Urine Clear (Clear); Bilirubin,Urine Negative (Negative); Blood,Urine Trace (Negative); Color,Urine Colorless; Glucose,Urine (UA) 3+ (Negative); Ketones,Urine Negative (Negative); Leukocyte Esterase,Urine Negative (Negative); Mucus,Urine Rare /hpf; Nitrite,Urine Negative (Negative); Protein,Urine Negative (Negative); RBC,Urine 1 /hpf (0-5); Specific Gravity,Urine 1.007 (1.001-1.035); Urobilinogen,Urine <2.0 mg/dL (<2.0); WBC,Urine 1 /hpf (0-5)
[2024-04-28 14:09] LABS: AST 33 U/L (17-59); Potassium 5.1 mmol/L (3.5-5.1)
[2024-04-28 14:10] LABS: Alkaline Phosphatase 49 U/L (38-126)
--- NOTE | 2024-04-28 14:10 | ED ---
Abdominal Pain HPI - General Chief Complaint: Abdominal Pain Stated Complaint: abd pain Time Seen by Provider: 04/28/24 13:13 Source: patient, RN notes reviewed Mode of arrival: ambulatory Limitations: no limitations - History of Present Illness Initial Comments: This is a 63-year-old male who presents to the emergency department for abdominal pain. Patient reports developing left lower groin pain 1-2 weeks ago. He has some radiation into the back. Denies any nausea or changes in bowel or bladder habits. He went to urgent care and was advised to come to the emergency department to rule out a strangulated hernia. States that the pain did start after he was doing a lot of bending and lifting. Denies any history of inguinal hernias. Denies any fevers/chills. MD Complaint: abdominal pain - Related Data Home Medications Medication Instructions Recorded Confirmed Isosorbide Mononitrate ER [Imdur] 30 mg PO DAILY 05/13/18 04/28/24 Latanoprost/Pf [Latanoprost 0.005% 1 drop BOTH EYES HS 05/13/18 04/28/24 Eye Drop] Metoprolol Succinate (ER) [Toprol 50 mg PO DAILY 05/13/18 04/28/24 XL] PARoxetine HCL [Paxil] 40 mg PO DAILY 05/13/18 04/28/24 buPROPion HCL [Wellbutrin SR] 150 mg PO DAILY 05/13/18 04/28/24 Rosuvastatin Calcium [Crestor] 40 mg PO DAILY 01/07/21 04/28/24 amLODIPine BESYLATE/BENAZEPRIL 1 cap PO DAILY 01/07/21 04/28/24 [amLODIPine BESYLATE/BENAZEPRIL 5-40 MG] Albuterol Sulfate [Albuterol 1 - 2 puff PO RT-Q4H PRN 04/28/24 04/28/24 Sulfate Hfa] Dapagliflozin Propanediol [Farxiga] 5 mg PO DAILY 04/28/24 04/28/24 Pantoprazole [Protonix] 40 mg PO DAILY 04/28/24 04/28/24 Ubidecarenone [Co Q-10] 300 mg PO DAILY 04/28/24 04/28/24 Vitamin B Complex 1 cap PO DAILY 04/28/24 04/28/24 Zinc Gluconate [Zinc] 50 mg PO DAILY 04/28/24 04/28/24 Allergies Allergy/AdvReac Type Severity Reaction Status Date / Time niacin Allergy Itching Verified 04/28/24 14:39 [From Niaspan Extended-Release] Review of Systems ROS Statement: Those systems with pertinent positive or pertinent negative responses have been documented in the HPI. ROS Other: All systems not noted in ROS Statement are negative. Past Medical History Past Medical History: Diabetes Mellitus, GERD/Reflux, Hypertension, Myocardial Infarction (HI) Additional Past Medical History / Comment(s): HI x4 Last Myocardial Infarction Date:: december 23/2012 History of Any Multi-Drug Resistant Organisms: None Reported Past Surgical History: Heart Catheterization With Stent Additional Past Surgical History / Comment(s): total of 3 cardiac stents, colonoscopy Past Anesthesia/Blood Transfusion Reactions: No Reported Reaction Date of Last Stent Placement:: 12/2023 Past Psychological History: Anxiety, Depression Smoking Status: Former smoker Past Alcohol Use History: None Reported Past Drug Use History: Marijuana - Past Family History Father Family Medical History: No Reported History General Exam Limitations: no limitations General appearance: alert, in no apparent distress Head exam: Present: atraumatic, normocephalic, normal inspection Respiratory exam: Present: normal lung sounds bilaterally. Absent: respiratory distress, wheezes, rales, rhonchi, stridor Cardiovascular Exam: Present: regular rate, normal rhythm, normal heart sounds. Absent: systolic murmur, diastolic murmur, rubs, gallop, clicks GI/Abdominal exam: Present: soft, tenderness (LLQ), normal bowel sounds. Absent: distended Neurological exam: Present: alert, oriented X3, CN II-XII intact Psychiatric exam: Present: normal affect, normal mood Skin exam: Present: warm, dry, intact, normal color. Absent: rash Course Vital Signs 04/28/24 04/28/24 13:10 13:58 Temperature 97.2 F L Pulse Rate 76 66 Respiratory 16 16 Rate Blood Pressure 117/74 105/77 O2 Sat by Pulse 97 95 Oximetry Medical Decision Making - Medical Decision Making This is a 63 year old male who presents to the emergency department for abdominal pain. Was pt. sent in by a medical professional or institution? @ -No Did you speak to anyone other than the patient for history? @ -No Did you review nursing and triage notes? @ -Yes, and I agree, it is accurate with regards to the patient's symptoms. Were old charts reviewed? @ -No Differential Diagnosis? @ -Differential Abdominal Pain Men: Appendicitis, cholecystitis, diverticulosis, ischemic bowel, pancreatitis, hepatitis, UTI, gastroenteritis, AAA, incarcerated hernia, bowel obstruction, constipation, inflammatory bowel, hepatitis, peptic ulcer disease, splenic infarction, perforated viscus, testicular torsion, this is not meant to be an all-inclusive list EKG interpreted by me (3pts min.)? @ -Not obtained X-rays interpreted by me (1pt min.)? @ -Not obtained CT interpreted by me (1pt min.)? @ -CT scan of the abdomen and pelvis obtained. My interpretation identifies a fluid collection in the left iliopsoas muscle U/S interpreted by me (1pt. min.)? @ -Not obtained What testing was considered but not performed? (CT, X-rays, U/S, labs)? Why? @ -None What meds were considered but not given? Why? @ -None Did you discuss the management of the patient with other professionals? @ -Yes, Dr. Macedo, general surgery, who will consult on the patient and requested IR and ID consults. Dr. Carrillo accepts the patient for admission to medicine. Did you reconcile home meds? @ -No Was smoking cessation discussed for >3mins.? @ -No Was critical care preformed (if so, how long)? @ -No Were there social determinants of health that impacted care today? How? (Homelessness, low income, unemployed, alcoholism, drug addiction, transportation, low edu. Level, literacy, decrease access to med. care, longterm, rehab)? @ -No Was there de-escalation of care discussed even if they declined? (Discuss DNR or withdrawal of care, Hospice)? @ -No What co-morbidities impacted this encounter? (DM, HTN, Smoking, COPD, CAD, Cancer, CVA, Hep., AIDS, mental health diagnosis, sleep apnea, morbid obesity)? @ -DM, HTN Was patient admitted / discharged? @ -Admitted. Lab work unremarkable. Urinalysis negative for signs of infection. CT scan of the abdomen and pelvis demonstrates a well-organized fluid collection in the left iliopsoas muscle measuring 2.3 x 3.2 x 8.3 cm concerning for abscess formation. Patient was afebrile there is no leuko cytosis. Case discussed with general surgery who advised that they will consult on the patient and requested consult for IR and infectious disease. Patient admitted to medicine for possible iliopsoas abscess. Blood culture obtained. He was started on vancomycin. Consult placed for general surgery, infectious disease, and IR. Case discussed with ED attending Dr. Tran. Undiagnosed new problem with uncertain prognosis? @ -None Drug Therapy requiring intensive monitoring for toxicity (Heparin, Nitro, Insulin, Cardizem)? @ -None Were any procedures done? @ -None Diagnosis/symptom? @ -Left iliopsoas abscess Acute, or Chronic, or Acute on Chronic? @ -Acute Uncomplicated (without systemic symptoms) or Complicated (systemic symptoms)? @ -Uncomplicated Side effects of treatment? @ -None Exacerbation, Progression, or Severe Exacerbation] @ -Not applicable Poses a threat to life or bodily function? @ -Yes, can lead to life threatening infection - Lab Data Result diagrams: 04/28/24 13:34 04/28/24 13:34 Lab Results 04/28/24 04/28/24 04/28/24 Range/Units 13:34 13:34 13:34 WBC 8.9 (3.8-10.6) k/uL RBC 5.40 (4.30-5.90) m/uL Hgb 15.4 (13.0-17.5) gm/dL Hct 47.3 (39.0-53.0) % MCV 87.7 (80.0-100.0) fL MCH 28.5 (25.0-35.0) pg MCHC 32.5 (31.0-37.0) g/dL RDW 15.1 (11.5-15.5) % Plt Count 244 (150-450) k/uL MPV 7.5 Neutrophils % 57 % Lymphocytes % 32 % Monocytes % 5 % Eosinophils % 2 % Basophils % 1 % Neutrophils # 5.1 (1.3-7.7) k/uL Lymphocytes # 2.9 (1.0-4.8) k/uL Monocytes # 0.4 (0-1.0) k/uL Eosinophils # 0.1 (0-0.7) k/uL Basophils # 0.1 (0-0.2) k/uL Sodium 140 (137-145) mmol/L Potassium 5.1 (3.5-5.1) mmol/L Chloride 106 (98-107) mmol/L Carbon Dioxide 26 (22-30) mmol/L Anion Gap 8 mmol/L BUN 19 (9-20) mg/dL Creatinine 0.93 (0.66-1.25) mg/dL Est GFR (CKD-EPI)AfAm >90 (>60 ml/min/1.73 sqM) Est GFR (CKD-EPI)NonAf 87 (>60 ml/min/1.73 sqM) Glucose 88 (74-99) mg/dL Plasma Lactic Acid Brandon (0.7-2.0) mmol/L Calcium 9.1 (8.4-10.2) mg/dL Total Bilirubin 0.7 (0.2-1.3) mg/dL AST 33 (17-59) U/L ALT 22 (4-49) U/L Alkaline Phosphatase 49 (38-126) U/L Total Protein 7.7 (6.3-8.2) g/dL Albumin 4.7 (3.5-5.0) g/dL Amylase 57 (30-110) U/L Lipase 126 (23-300) U/L Urine Color Colorless Urine Appearance Clear (Clear) Urine pH 5.0 (5.0-8.0) Ur Specific Callahan 1.007 (1.001-1.035) Urine Protein Negative (Negative) Urine Glucose (UA) 3+ H (Negative) Urine Ketones Negative (Negative) Urine Blood Trace H (Negative) Urine Nitrite Negative (Negative) Urine Bilirubin Negative (Negative) Urine Urobilinogen <2.0 (<2.0) mg/dL Ur Leukocyte Esterase Negative (Negative) Urine RBC 1 (0-5) /hpf Urine WBC 1 (0-5) /hpf Urine Mucus Rare H (None) /hpf 04/28/24 Range/Units 13:34 WBC (3.8-10.6) k/uL RBC (4.30-5.90) m/uL Hgb (13.0-17.5) gm/dL Hct (39.0-53.0) % MCV (80.0-100.0) fL MCH (25.0-35.0) pg MCHC (31.0-37.0) g/dL RDW (11.5-15.5) % Plt Count (150-450) k/uL MPV Neutrophils % % Lymphocytes % % Monocytes % % Eosinophils % % Basophils % % Neutrophils # (1.3-7.7) k/uL Lymphocytes # (1.0-4.8) k/uL Monocytes # (0-1.0) k/uL Eosinophils # (0-0.7) k/uL Basophils # (0-0.2) k/uL Sodium (137-145) mmol/L Potassium (3.5-5.1) mmol/L Chloride (98-107) mmol/L Carbon Dioxide (22-30) mmol/L Anion Gap mmol/L BUN (9-20) mg/dL Creatinine (0.66-1.25) mg/dL Est GFR (CKD-EPI)AfAm (>60 ml/min/1.73 sqM) Est GFR (CKD-EPI)NonAf (>60 ml/min/1.73 sqM) Glucose (74-99) mg/dL Plasma Lactic Acid Brandon 1.1 (0.7-2.0) mmol/L Calcium (8.4-10.2) mg/dL Total Bilirubin (0.2-1.3) mg/dL AST (17-59) U/L ALT (4-49) U/L Alkaline Phosphatase (38-126) U/L Total Protein (6.3-8.2) g/dL Albumin (3.5-5.0) g/dL Amylase (30-110) U/L Lipase (23-300) U/L Urine Color Urine Appearance (Clear) Urine pH (5.0-8.0) Ur Specific Callahan (1.001-1.035) Urine Protein (Negative) Urine Glucose (UA) (Negative) Urine Ketones (Negative) Urine Blood (Negative) Urine Nitrite (Negative) Urine Bilirubin (Negative) Urine Urobilinogen (<2.0) mg/dL Ur Leukocyte Esterase (Negative) Urine RBC (0-5) /hpf Urine WBC (0-5) /hpf Urine Mucus (None) /hpf - Radiology Data Radiology results: report reviewed, image reviewed Disposition Clinical Impression: Iliopsoas abscess on left Disposition: ADMITTED IP TO THIS HOSP
--- NOTE | 2024-04-28 15:24 | CT ---
EXAMINATION TYPE: CT abdomen pelvis w con CT DLP: 1160.3 mGycm, Automated exposure control for dose reduction was used. DATE OF EXAM: 04/28/2024 3:10 PM COMPARISON: CT urogram 04/27/2024, PET CT 11/28/2022 CLINICAL INDICATION:Male, 63 years old with history of Left groin pain, possible hernia; Left groin p ain, possible hernia TECHNIQUE: Standard CT of the abdomen and pelvis following the administration of 100 cc of Isovue 3 00 IV contrast material. Coronal and sagittal reformats were performed. FINDINGS: LOWER CHEST: Unremarkable ABDOMEN LIVER: Unremarkable GALLBLADDER AND BILE DUCTS: Unremarkable. PANCREAS: Unremarkable. SPLEEN: Unremarkable. ADRENAL GLANDS: Unremarkable. KIDNEYS AND URETERS: No evidence of hydronephrosis or renal calculus. The kidneys enhance symmetrical ly. Contrast is demonstrated within both collecting systems on delayed phase. A subcentimeter hypoden se 9 mm lesion within the cortex of the right lower kidney (series 201, 29). This corresponds to CT u rogram finding. PELVIS BLADDER: Unremarkable REPRODUCTIVE: Coarse calcifications of the prostate gland are identified. ABDOMEN & PELVIS STOMACH AND BOWEL: Stomach and duodenum are unremarkable. No focal bowel wall thickening or surroundi ng inflammatory changes. The appendix is within normal limits. No evidence of bowel obstruction. PERITONEUM: No evidence of pneumoperitoneum or free fluid. VASCULATURE: Moderate atherosclerotic calcifications are present throughout the abdominal aorta and i ts branches. No evidence of aortic aneurysm. MUSCULOSKELETAL: No acute osseous abnormalities. Moderate multilevel degenerative disc disease. Well- organized fluid collection within the left iliopsoas muscle measuring 2.3 x 3.2 x 8.3 cm in AP, TV, C C dimensions (series 201:51 and series 203, image 99). No internal gas within the collection LYMPH NODES: No evidence for lymphadenopathy. SOFT TISSUE/ABDOMINAL WALL: Small fat filled bilateral inguinal hernias. Tiny fat filled umbilical he rnia. IMPRESSION: 1. Left iliopsoas muscle 2.3 x 3.2 x 8.3 cm intramuscular organized fluid collection concerning for abscess. 2. Stable indeterminate right renal subcentimeter lesion in prior CT urogram 04/27/2024. 3. Small bilateral fat filled inguinal hernias. [facility], , 04/28/2024 3:22 PM
[2024-04-28] MEDS ORDERED: VANCOMYCIN IV PER PHARMACY 1 EACH MISC MISCELLANE PRN (15:44)
[2024-04-28] MEDS ORDERED: KETOROLAC 15 MG/ML 1 ML VIAL IVP PRN (16:30)
[2024-04-28] MEDS ORDERED: ONDANSETRON 4 MG/2 ML VIAL IVP PRN (16:30)
[2024-04-28] MEDS ORDERED: NALOXONE 0.4 MG/ML 1 ML VIAL IV PRN (16:30)
[2024-04-28] MEDS ORDERED: ACETAMINOPHEN TAB 325 MG TAB PO PRN (16:30)
[2024-04-28] MEDS: VANCOMYCIN 1,750 MG in SODIUM CHLORIDE 0.9% 500 ML 500 ML IVPB ONE (16:39)
[2024-04-28] MEDS ORDERED: ALBUTEROL NEBULIZED 2.5 MG/3 ML INHALATION PRN (17:00)
[2024-04-28 20:16] LABS: Glucose,Whole Blood 92 mg/dL (70-110)
[2024-04-28] MEDS: MORPHINE SULFATE 4 MG/ML SYRINGE IV PRN (21:06)
[2024-04-28] MEDS: CEFEPIME 2 GM in SODIUM CHLORIDE 0.9% 100 ML IVPB SCH (21:07)
--- NOTE | 2024-04-29 00:58 | P.HPIM ---
History of Present Illness H&P Date: 04/28/24 Chief Complaint: Left groin pain/iliopsoas abscess HISTORY OF PRESENT ILLNESS: This is a 63-year-old male with a previous medical history significant for coronary artery disease status post PCI x 3 in 2012 under the care of Dr. Jimenez, hypertension and hypertensive cardiovascular disease, mixed hyperlipidemia, gout, enlarged prostate, GERD with esophagitis, glaucoma, osteoarthritis, chronic THC use, remote tobacco use and dependence, patient presented to the emergency department at [facility] because of increased pain in the left lower quadrant left groin area that was started about a week or 2 ago after he was working on his house, he reported that he had fallen last Wednesday, but he did not remember any injury, apparently the patient went to [facility], an acute care hospital today and they were concerned about strangulated hernia so he was referred to the ER for evaluation, patient had a CT scan of the abdomen pelvis in the emergency department that showed evidence of what appears of possible left iliopsoas fluid collection/abscess that measures 2.3 x 3.2 x 8.3 cm intramuscular were organized suggestive of an abscess versus hematoma, which is most likely a cyst as the patient does not have any evidence of fever or chills but he had a prior history of trauma. Patient was admitted to the hospital under my service, general surgery consultation as well as infectious ease consultation along with interventional radiology consultation for possible CT guidance drainage, patient was started on IV antibiotic in the form of vancomycin as well as cefepime blood cultures were obtained. REVIEW OF SYSTEMS: Constitutional: No documented fever, no chills, no night sweats. No weight change. No weakness, fatigue or lethargy. No daytime sleepiness. EENT: No headache. No blurred vision or double vision, no loss of vision. No loss of Hearing, no ringing in the ears, no dizziness. No nasal drainage or congestion. No epistaxis. No sore throat. Lungs: No shortness of breath, no cough, no sputum production. No wheezing. Reports dyspnea with activity. Cardiovascular: No chest pain, no lower extremity edema. No palpitations. No paroxysmal nocturnal dyspnea. No orthopnea. No lightheadedness or dizziness. No syncopal episodes. Abdominal: Reports abdominal pain. No nausea, vomiting. No diarrhea. No constipation. No bloody or tarry stools reports loss of appetite. Genitourinary: No dysuria, increased frequency, urgency. No urinary retention. Musculoskeletal: No myalgias. No muscle weakness, no gait dysfunction, no frequent falls. positive for back pain. No neck pain, positive for left leg weakness Integumentary: No wounds, no lesions. No rash or pruritus. No unusual bruising. No change in hair or nails. Neurologic: No aphasia. No facial droop. No change in mentation. No head injury. No headache. No paralysis. No paresthesia, left leg raise is limited Psychiatric: No depression. positive for anxiety. No mood swings. Endocrine: No abnormal blood sugars. No weight change. PAST MEDICAL HISTORY: Coronary artery disease status post PCI x 3 in 2011 Hypertension and hypertensive cardiovascular disease. Mixed hyperlipidemia. Idiopathic gout. Enlarged prostate. Anxiety disorder. GERD with esophagitis Glaucoma. Osteoarthritis. THC use. PAST SURGICAL HISTORY: Left heart catheterization with PCI x 3 in 2011 Laparoscopic right inguinal hernia repair 12/20/2019 Colonoscopy 03/24/2024 SOCIAL HISTORY: Patient used to smoke about a pack every day since the age of 17 and quit in June 28, 2022 currently smokes marijuana, he denies any alcohol ingestion, he denies any drug use or abuse. FAMILY HISTORY: Father at the age of 78 from alcoholism and liver failure mother at the age of 89 had a history of diabetes CVA dementia and chronic kidney disease along with hypertension patient had 3 brothers 1 from pancreatic cancer patient had 4 sisters 1 passed from overdose on speed and the other 1 are okay patient has 2 adopted children and 3 stepchildren 1 passed from ND at the age of 42 and was alcohol user. PHYSICAL EXAMINATION: General: 63-year-old male laying down in bed in no apparent distress. HEENT: Head is atraumatic, normocephalic, pupils were equal round reactive to light and recommendation, extraocular muscle movement were intact, sclera nonicteric, conjunctivae were pale, mucous membranes of the mouth are somewhat dry. Neck: Supple, no JVP, normal carotid upstroke bilaterally, no lymphadenopathy. Chest: Decreased breath sounds at the bases, few rhonchi, minimal expiratory wheezes, no chest wall tenderness, no intercostal retractions. Heart: First heart sound is normal, second heart sound is normal there is systolic ejection murmur 2/6 located in the left sternal border. Abdomen: Soft, tenderness to the left lower quadrant, nondistended, positive bowel sounds. Extremities: There is no edema no calf tenderness DP +2 bilaterally. Neurologic examination: Patient is awake alert and oriented x3, cranial nerves II-12 appear grossly intact, muscle power were 5 out of 5 in upper extremities and 5 out of 5 in bilateral lower extremities, deep tendon reflexes normal bi laterally limitation to elevate the left lower extremity due to iliopsoas hematoma versus abscess. ASSESSMENT AND PLAN: 1. Left iliopsoas intramuscular fluid collection likely hematoma doubt abscess. Patient will be admitted to the hospital for further evaluation, patient will be started on IV antibiotic in the form of vancomycin pharmacy to dose his peak and trough, cefepime 2 g piggyback every 8 hours, obtain infectious's consultation, general surgery consultation, will consult interventional radiology for possible CT-guided drain of the fluid. Will continue to monitor the patient very closely at this point in time. 2. Coronary artery disease status post PCI x 3 in 2011. Continue patient on aspirin 81 mg once every day, metoprolol ER 50 mg orally once every day, atorvastatin 80 mg once every day, monitor the patient's symptoms very closely, continue isosorbide mononitrate 30 mg orally once every day patient follows with cardiology on a regular basis Dr. Jimenez. 3. Hypertension and hypertensive cardiovascular disease. Continue patient on amlodipine benazepril 5/40 mg orally once every day, metoprolol XL 50 mg orally once every day, monitor the patient blood pressure very closely. 4. Mixed hyperlipidemia. Continue patient on atorvastatin 80 mg once every day monitor the patient blood panel, keep LDL 55-70. 5. Enlarged prostate. Monitor the patient for urinary retention. 6. GERD with esophagitis. Continue pantoprazole 40 mg orally once every day. 7. History of gout. Stable at this time. 8. Anxiety disorder. Continue patient on Wellbutrin 150 mg once every day as well as paroxetine 40 mg once every day. 9. Chronic THC use. Patient was advised against its use. 10. History of glaucoma. Continue Xalatan at bedtime. 11. COPD. Continue patient on albuterol HFA 2 puffs inhalation every 4 hours as needed. 12. Left renal cyst has been followed by a CT urogram on yearly basis. 13. DVT prophylaxis. Lovenox 40 mg subcutaneous every 24 hours. 14. GI prophylaxis. Continue patient on Protonix 40 mg orally once every day. 15. Admit to inpatient. Estimated length of stay 2 midnights for 16. Patient is full code Past Medical History Past Medical History: Diabetes Mellitus, GERD/Reflux, Hypertension, Myocardial Infarction (ND) Additional Past Medical History / Comment(s): ND x4 Last Myocardial Infarction Date:: december 23/2012 History of Any Multi-Drug Resistant Organisms: None Reported Past Surgical History: Heart Catheterization With Stent Additional Past Surgical History / Comment(s): total of 3 cardiac stents, colonoscopy Past Anesthesia/Blood Transfusion Reactions: No Reported Reaction Date of Last Stent Placement:: 12/2023 Past Psychological History: Anxiety, Depression Smoking Status: Former smoker Past Alcohol Use History: None Reported Past Drug Use History: Marijuana - Past Family History Father Family Medical History: No Reported History Medications and Allergies Home Medications Medication Instructions Recorded Confirmed Type Isosorbide Mononitrate ER [Imdur] 30 mg PO DAILY 05/13/18 04/28/24 History Latanoprost/Pf [Latanoprost 0.005% 1 drop BOTH EYES HS 05/13/18 04/28/24 History Eye Drop] Metoprolol Succinate (ER) [Toprol 50 mg PO DAILY 05/13/18 04/28/24 History XL] PARoxetine HCL [Paxil] 40 mg PO DAILY 05/13/18 04/28/24 History buPROPion HCL [Wellbutrin SR] 150 mg PO DAILY 05/13/18 04/28/24 History Rosuvastatin Calcium [Crestor] 40 mg PO DAILY 01/07/21 04/28/24 History amLODIPine BESYLATE/BENAZEPRIL 1 cap PO DAILY 01/07/21 04/28/24 History [amLODIPine BESYLATE/BENAZEPRIL 5-40 MG] Albuterol Sulfate [Albuterol 1 - 2 puff PO RT-Q4H PRN 04/28/24 04/28/24 History Sulfate Hfa] Dapagliflozin Propanediol [Farxiga] 5 mg PO DAILY 04/28/24 04/28/24 History Pantoprazole [Protonix] 40 mg PO DAILY 04/28/24 04/28/24 History Ubidecarenone [Co Q-10] 300 mg PO DAILY 04/28/24 04/28/24 History Vitamin B Complex 1 cap PO DAILY 04/28/24 04/28/24 History Zinc Gluconate [Zinc] 50 mg PO DAILY 04/28/24 04/28/24 History Allergies Allergy/AdvReac Type Severity Reaction Status Date / Time niacin Allergy Itching Verified 04/28/24 14:39 [From Niaspan Extended-Release] Physical Exam Vitals: Vital Signs Temp Pulse Resp BP Pulse Ox 04/28/24 13:58 66 16 105/77 95 04/28/24 13:10 97.2 F L 76 16 117/74 97 Intake and Output 04/28/24 04/28/24 04/28/24 06:59 14:59 22:59 Other: Weight 87.543 kg Results CBC & Chem 7: 04/28/24 13:34 04/28/24 13:34 Labs: Abnormal Lab Results - Last 24 Hours (Table) 04/28/24 Range/Units 13:34 Urine Glucose (UA) 3+ H (Negative) Urine Blood Trace H (Negative) Urine Mucus Rare H (None) /hpf
[2024-04-29] MEDS: LATANOPROST 0.005% OPHTH DROPS 2.5 ML BTL BOTH EYES SCH (01:04)
[2024-04-29] MEDS: SODIUM CHLORIDE 0.9% 1,000 ML IV SCH (01:17)
[2024-04-29] MEDS: CEFEPIME 2 GM in SODIUM CHLORIDE 0.9% 100 ML IVPB SCH (05:57)
[2024-04-29] MEDS: VANCOMYCIN 1,500 MG in SODIUM CHLORIDE 0.9% 500 ML 500 ML IVPB SCH (05:57)
[2024-04-29] MEDS: HYDROcodone/APAP 5-325MG 1 EACH TAB PO PRN (06:02)
[2024-04-29 07:51] LABS: Glucose,Whole Blood 100 mg/dL (70-110)
[2024-04-29] MEDS ORDERED: NON FORMULARY DRUG (Vitamin B Complex [Vitamin B Complex] 1 EACH Capsule) PO SCH (09:00)
[2024-04-29] MEDS ORDERED: NON FORMULARY DRUG (Ubidecarenone [Co Q-10] 300 MG Capsule) PO SCH (09:00)
[2024-04-29 09:51] LABS: ALT 17 U/L (10-49); AST 18 U/L (14-35); Albumin 3.7 g/dL (3.8-4.9); Albumin/Globulin Ratio 1.68 Ratio (1.60-3.17); Alkaline Phosphatase 60 U/L (41-126); Blood Urea Nitrogen 14.9 mg/dL (9.0-27.0); Calcium 8.7 mg/dL (8.7-10.3); Carbon Dioxide 25.8 mmol/L (21.6-31.8); Chloride 109 mmol/L (96-109); Globulin 2.2 g/dL (1.6-3.3); Glucose 88 mg/dL (70-110); Potassium 4.9 mmol/L (3.5-5.5); Sodium 144 mmol/L (135-145); Total Bilirubin 0.2 mg/dL (0.3-1.2); Total Protein 5.9 g/dL (6.2-8.2)
[2024-04-29 09:55] LABS: Basophils # (A) 0.03 X 10*3/uL (0.00-0.10); Basophils % (A) 0.4 %; Eosinophils # (A) 0.15 X 10*3/uL (0.04-0.35); HCT 44.7 % (39.6-50.0); HGB 14.3 g/dL (13.0-17.0); Lymphocytes # (A) 2.01 X 10*3/uL (0.90-5.00); Lymphocytes % (A) 26.6 %; MCH 28.5 pg (27.0-32.0); Mean Platelet Volume 10.3 FL (9.5-12.2); Monocytes # (A) 0.55 X 10*3/uL (0.20-1.00); Monocytes % (A) 7.3 %; NRBC Per 100 WBC 0 X 10*3/uL (0.00-0.01); Neutrophils # (A) 4.79 X 10*3/uL (1.80-7.70); Neutrophils % (A) 63.2 %; Platelet Count 179 X 10*3/uL (140-440); RBC 5.02 X 10*6/uL (4.40-5.60); RDW 15.9 % (11.5-14.5); WBC 7.57 X 10*3/uL (4.50-10.00)
[2024-04-29] MEDS: ASPIRIN 81 MG PO SCH (10:17)
[2024-04-29] MEDS: METOPROLOL SUCCINATE (ER) 50 MG TAB.ER.24H PO SCH (10:17)
[2024-04-29] MEDS: ENOXAPARIN 40 MG/0.4 ML SYRINGE SQ SCH (10:17)
[2024-04-29] MEDS: lisinopriL 20 MG TAB PO SCH (10:17)
[2024-04-29] MEDS: PANTOPRAZOLE 40 MG TABLET PO SCH (10:17)
[2024-04-29] MEDS: buPROPion SR 150 MG TABLET.ER PO SCH (10:17)
[2024-04-29] MEDS: ISOSORBIDE MONONITRATE ER 30 MG TAB.ER.24H PO SCH (10:17)
[2024-04-29] MEDS: amLODIPine 5 MG TAB PO SCH (10:17)
[2024-04-29] MEDS: DAPAGLIFLOZIN PROPANEDIOL 5 MG TABLET PO SCH (10:17)
[2024-04-29] MEDS: ATORVASTATIN 80 MG TAB PO SCH (10:17)
[2024-04-29] MEDS: PARoxetine 20 MG TAB PO SCH (10:18)
[2024-04-29] MEDS: ZINC SULFATE 220 MG CAP PO SCH (10:18)
[2024-04-29 11:19] LABS: Erythrocyte Sedimentation Rate 10 mm/Hr (0-20)
[2024-04-29 12:25] LABS: Glucose,Whole Blood 94 mg/dL (70-110)
--- NOTE | 2024-04-29 16:17 | P.GSCN ---
History of Present Illness Consult date: 04/29/24 History of present illness: Patient is a 63-year-old male who presents with CT evidence of a left iliopsoas abscess. Patient states that he has had worsening left-sided groin pain for the past 3 to 4 days prompting his presentation to the emergency department. He denies any prior episodes such as this. Endorses subjective fevers and chills. He states that his pain is localized to his left groin, and denies any abdominal pain nausea or emesis. No change in bowel habits. No sick contacts. No melena hematochezia or hematemesis. Tolerating diet without issue. No change in pain with p.o. intake. No prior episodes such as this. He denies any prior abdominal operations or inguinal hernia repair in the past. Upon presentation to [facility] emergency department a CT was obtained which showed evidence of a 2 cm x 3 cm x 8 cm left iliopsoas abscess. No evidence of diverticulitis was seen. Review of Systems Negative except for as stated above Past Medical History Past Medical History: Diabetes Mellitus, GERD/Reflux, Hypertension, Myocardial Infarction ([place]) Additional Past Medical History / Comment(s): [place] x4 Last Myocardial Infarction Date:: december 23/2012 History of Any Multi-Drug Resistant Organisms: None Reported Past Surgical History: Heart Catheterization With Stent Additional Past Surgical History / Comment(s): total of 3 cardiac stents, colon oscopy Past Anesthesia/Blood Transfusion Reactions: No Reported Reaction Date of Last Stent Placement:: 12/2023 Past Psychological History: Anxiety, Depression Smoking Status: Former smoker Past Alcohol Use History: None Reported Past Drug Use History: Marijuana - Past Family History Father Family Medical History: No Reported History Medications and Allergies Home Medications Medication Instructions Recorded Confirmed Type Isosorbide Mononitrate ER [Imdur] 30 mg PO DAILY 05/13/18 04/28/24 History Latanoprost/Pf [Latanoprost 0.005% 1 drop BOTH EYES HS 05/13/18 04/28/24 History Eye Drop] Metoprolol Succinate (ER) [Toprol 50 mg PO DAILY 05/13/18 04/28/24 History XL] PARoxetine HCL [Paxil] 40 mg PO DAILY 05/13/18 04/28/24 History buPROPion HCL [Wellbutrin SR] 150 mg PO DAILY 05/13/18 04/28/24 History Rosuvastatin Calcium [Crestor] 40 mg PO DAILY 01/07/21 04/28/24 History amLODIPine BESYLATE/BENAZEPRIL 1 cap PO DAILY 01/07/21 04/28/24 History [amLODIPine BESYLATE/BENAZEPRIL 5-40 MG] Albuterol Sulfate [Albuterol 1 - 2 puff PO RT-Q4H PRN 04/28/24 04/28/24 History Sulfate Hfa] Dapagliflozin Propanediol [Farxiga] 5 mg PO DAILY 04/28/24 04/28/24 History Pantoprazole [Protonix] 40 mg PO DAILY 04/28/24 04/28/24 History Ubidecarenone [Co Q-10] 300 mg PO DAILY 04/28/24 04/28/24 History Vitamin B Complex 1 cap PO DAILY 04/28/24 04/28/24 History Zinc Gluconate [Zinc] 50 mg PO DAILY 04/28/24 04/28/24 History Allergies Allergy/AdvReac Type Severity Reaction Status Date / Time niacin Allergy Itching Verified 04/28/24 14:39 [From Niaspan Extended-Release] Surgical - Exam Vital Signs Temp Pulse Resp BP Pulse Ox 97.2 F L 76 16 117/74 97 04/28/24 13:10 04/28/24 13:10 04/28/24 13:10 04/28/24 13:10 04/28/24 13:10 Gen: AxO, NAD Pulm: non-labored respirations Abd: soft, minimally tender in left groin and flank. No left inguinal hernia appreciated. No flank ecchymosis or skin changes seen. Non-distended. No guarding/rebound/rigidity Extrem: no edema seen Results - Labs 04/29/24 05:18 04/29/24 05:18 Abnormal Lab Results - Last 24 Hours (Table) 04/29/24 04/29/24 Range/Units 05:18 05:18 RDW 15.9 H (11.5-14.5) % Total Bilirubin 0.2 L (0.3-1.2) mg/dL Total Protein 5.9 L (6.2-8.2) g/dL Albumin 3.7 L (3.8-4.9) g/dL Diabetes panel 04/29/24 Range/Units 05:18 Sodium 144 (135-145) mmol/L Potassium 4.9 (3.5-5.5) mmol/L Chloride 109 (96-109) mmol/L Carbon Dioxide 25.8 (21.6-31.8) mmol/L BUN 14.9 (9.0-27.0) mg/dL Creatinine 1.0 (0.6-1.5) mg/dL Glucose 88 (70-110) mg/dL Calcium 8.7 (8.7-10.3) mg/dL AST 18 (14-35) U/L ALT 17 (10-49) U/L Alkaline Phosphatase 60 (41-126) U/L Total Protein 5.9 L (6.2-8.2) g/dL Albumin 3.7 L (3.8-4.9) g/dL Calcium panel 04/29/24 Range/Units 05:18 Calcium 8.7 (8.7-10.3) mg/dL Albumin 3.7 L (3.8-4.9) g/dL Pituitary panel 04/29/24 Range/Units 05:18 Sodium 144 (135-145) mmol/L Potassium 4.9 (3.5-5.5) mmol/L Chloride 109 (96-109) mmol/L Carbon Dioxide 25.8 (21.6-31.8) mmol/L BUN 14.9 (9.0-27.0) mg/dL Creatinine 1.0 (0.6-1.5) mg/dL Glucose 88 (70-110) mg/dL Calcium 8.7 (8.7-10.3) mg/dL Adrenal panel 04/29/24 Range/Units 05:18 Sodium 144 (135-145) mmol/L Potassium 4.9 (3.5-5.5) mmol/L Chloride 109 (96-109) mmol/L Carbon Dioxide 25.8 (21.6-31.8) mmol/L BUN 14.9 (9.0-27.0) mg/dL Creatinine 1.0 (0.6-1.5) mg/dL Glucose 88 (70-110) mg/dL Calcium 8.7 (8.7-10.3) mg/dL Total Bilirubin 0.2 L (0.3-1.2) mg/dL AST 18 (14-35) U/L ALT 17 (10-49) U/L Alkaline Phosphatase 60 (41-126) U/L Total Protein 5.9 L (6.2-8.2) g/dL Albumin 3.7 L (3.8-4.9) g/dL Assessment and Plan Assessment: Patient is a 63-year-old male who presents with left groin pain and CT evidence of left iliopsoas abscess Plan: -N.p.o. -IV antibiotics -As needed pain and nausea control -IV antibiotics -Recommend IR consult for percutaneous drainage -Recommend outpatient colonoscopic evaluation in 4 to 6 weeks to rule out diverticular disease as the cause of iliopsoas abscess -No acute surgical intervention Oscar Saini M.D. General Surgery
--- NOTE | 2024-04-29 17:13 | P.PN ---
Subjective This is a 63-year-old male with a previous medical history significant for coronary artery disease status post PCI x 3 in 2012 under the care of Dr. Jimenez, hypertension and hypertensive cardiovascular disease, mixed hyperlipidemia, gout, enlarged prostate, GERD with esophagitis, glaucoma, osteoarthritis, chronic THC use, remote tobacco use and dependence, patient presented to the emergency department at [facility] because of increased pain in the left lower quadrant left groin area that was started about a week or 2 ago after he was working on his house, he reported that he had fallen last Wednesday, but he did not remember any injury, apparently the patient went to urgent care today and they were concerned about strangulated hernia so he was referred to the ER for evaluation, patient had a CT scan of the abdomen pelvis in the emergency department that showed evidence of what appears of possible left iliopsoas fluid collection/abscess that measures 2.3 x 3.2 x 8.3 cm intramuscular were organized suggestive of an abscess versus hematoma, which is most likely a cyst as the patient does not have any evidence of fever or chills but he had a prior history of trauma. Patient was admitted to the hospital under my service, general surgery consultation as well as infectious ease consultation along with interventional radiology consultation for possible CT guidance drainage, patient was started on IV antibiotic in the form of vancomycin as well as cefepime blood cultures were obtained. 04/29 Patient with no new complaint Pain is controlled. Mild pain comes and goes Continue with antibiotics Objective - Vital Signs Vital signs: Vital Signs Temp 97.9 F 04/29/24 07:47 Pulse 67 04/29/24 07:47 Resp 14 04/29/24 07:47 BP 159/95 04/29/24 07:47 Pulse Ox 96 04/29/24 07:47 FiO2 Intake & Output 04/28/24 04/29/24 04/29/24 18:59 06:59 18:59 Weight 87.543 kg 87.543 kg Other: # Voids 3 - Exam GENERAL: The patient is alert and oriented x3, not in any acute distress. Well developed, well nourished. HEENT: Pupils are round and equally reacting to light. EOMI. No scleral icterus. No conjunctival pallor. Normocephalic, atraumatic. No pharyngeal erythema. No thyromegaly. CARDIOVASCULAR: S1 and S2 present. No murmurs, rubs, or gallops. PULMONARY: Chest is clear to auscultation, no wheezing , no crackles. ABDOMEN: Soft, nontender, nondistended, normoactive bowel sounds. No palpable organomegaly. MUSCULOSKELETAL: No joint swelling or deformity. EXTREMITIES: No cyanosis, clubbing, or pedal edema. NEUROLOGICAL: Gross neurological examination did not reveal any focal deficits. SKIN: No rashes. no petechiae. - Labs CBC & Chem 7: 04/29/24 05:18 04/29/24 05:18 Labs: Abnormal Lab Results - Last 24 Hours (Table) 04/28/24 04/29/24 04/29/24 Range/Units 13:34 05:18 05:18 RDW 15.9 H (11.5-14.5) % Total Bilirubin 0.2 L (0.3-1.2) mg/dL Total Protein 5.9 L (6.2-8.2) g/dL Albumin 3.7 L (3.8-4.9) g/dL Urine Glucose (UA) 3+ H (Negative) Urine Blood Trace H (Negative) Urine Mucus Rare H (None) /hpf Assessment and Plan Assessment: ASSESSMENT AND PLAN: 1. Left iliopsoas intramuscular fluid collection likely hematoma doubt abscess. Patient will be admitted to the hospital for further evaluation, patient will be started on IV antibiotic in the form of vancomycin pharmacy to dose his peak and trough, cefepime 2 g piggyback every 8 hours, obtain infectious's consultation, general surgery consultation, will consult interventional radiology for possible CT-guided drain of the fluid. Will continue to monitor the patient very closely at this point in time. 2. Coronary artery disease status post PCI x 3 in 2011. Continue patient on aspirin 81 mg once every day, metoprolol ER 50 mg orally once every day, atorvastatin 80 mg once every day, monitor the patient's symptoms very closely, continue isosorbide mononitrate 30 mg orally once every day patient follows with cardiology on a regular basis Dr. Jimenez. 3. Hypertension and hypertensive cardiovascular disease. Continue patient on amlodipine benazepril 5/40 mg orally once every day, metoprolol XL 50 mg orally once every day, monitor the patient blood pressure very closely. 4. Mixed hyperlipidemia. Continue patient on atorvastatin 80 mg once every day monitor the patient blood panel, keep LDL 55-70. 5. Enlarged prostate. Monitor the patient for urinary retention. 6. GERD with esophagitis. Continue pantoprazole 40 mg orally once every day. 7. History of gout. Stable at this time. 8. Anxiety disorder. Continue patient on Wellbutrin 150 mg once every day as well as paroxetine 40 mg once every day. 9. Chronic THC use. Patient was advised against its use. 10. History of glaucoma. Continue Xalatan at bedtime. 11. COPD. Continue patient on albuterol HFA 2 puffs inhalation every 4 hours as needed. 12. Left renal cyst has been followed by a CT urogram on yearly basis. 13. DVT prophylaxis. Lovenox 40 mg subcutaneous every 24 hours. 14. GI prophylaxis. Continue patient on Protonix 40 mg orally once every day. 15. Admit to inpatient. Estimated length of stay 2 midnights for 16. Patient is full code
[2024-04-29 17:16] LABS: Glucose,Whole Blood 84 mg/dL (70-110)
[2024-04-29 20:16] LABS: Glucose,Whole Blood 129 mg/dL (70-110)
--- NOTE | 2024-04-29 22:39 | P.CONS ---
History of Present Illness - Reason for Consult Consult date: 04/29/24 Left iliopsoas abscess Requesting physician: Vickie Perez - Chief Complaint Left groin pain x 2 weeks - History of Present Illness Patient is a 63-year-old male with a past medical history significant for diabetes mellitus hypertension ID reflux patient presenting to the hospital for evaluation of pain to the left lower groin area that apparently has been go ing on for about a week or 2 patient denies any history of any trauma has been complaining of pain to be mostly dull aching at times sharp moderate intensity and some radiation to the back patient denies having any nausea no vomiting denies any diarrhea or any constipation patient was evaluated in the urgent care with concern for possible strangulated hernia. Patient was advised to go to the hospital patient denies having any fever or any chills and no fever was recorded on presentation to the hospital patient was not tachycardic hypotensive or hypoxic patient did have white count of 7.57, creatinine 1.0 electrolytes are normal liver enzymes are normal patient did have abdominal pelvis CT we did shows left iliopsoas muscle 2.3 X3.2X 8.3 cm intramuscular organized fluid collection concerning for an abscess patient has been admitted to the hospital he was started on vancomycin and cefepime infectious disease was consulted for further management of antibiotic therapy Review of Systems Positive point and negatives has been mentioned in the HPI, complete review of systems was performed and all other systems are negative Past Medical History Past Medical History: Diabetes Mellitus, GERD/Reflux, Hypertension, Myocardial Infarction ([place]) Additional Past Medical History / Comment(s): [place] x4 Last Myocardial Infarction Date:: december 23/2012 History of Any Multi-Drug Resistant Organisms: None Reported Past Surgical History: Heart Catheterization With Stent Additional Past Surgical History / Comment(s): total of 3 cardiac stents, colonoscopy Past Anesthesia/Blood Transfusion Reactions: No Reported Reaction Date of Last Stent Placement:: 12/2023 Past Psychological History: Anxiety, Depression Smoking Status: Former smoker Past Alcohol Use History: None Reported Past Drug Use History: Marijuana - Past Family History Father Family Medical History: No Reported History Medications and Allergies Home Medications Medication Instructions Recorded Confirmed Type Isosorbide Mononitrate ER [Imdur] 30 mg PO DAILY 05/13/18 04/28/24 History Latanoprost/Pf [Latanoprost 0.005% 1 drop BOTH EYES HS 05/13/18 04/28/24 History Eye Drop] Metoprolol Succinate (ER) [Toprol 50 mg PO DAILY 05/13/18 04/28/24 History XL] PARoxetine HCL [Paxil] 40 mg PO DAILY 05/13/18 04/28/24 History buPROPion HCL [Wellbutrin SR] 150 mg PO DAILY 05/13/18 04/28/24 History Rosuvastatin Calcium [Crestor] 40 mg PO DAILY 01/07/21 04/28/24 History amLODIPine BESYLATE/BENAZEPRIL 1 cap PO DAILY 01/07/21 04/28/24 History [amLODIPine BESYLATE/BENAZEPRIL 5-40 MG] Albuterol Sulfate [Albuterol 1 - 2 puff PO RT-Q4H PRN 04/28/24 04/28/24 History Sulfate Hfa] Dapagliflozin Propanediol [Farxiga] 5 mg PO DAILY 04/28/24 04/28/24 History Pantoprazole [Protonix] 40 mg PO DAILY 04/28/24 04/28/24 History Ubidecarenone [Co Q-10] 300 mg PO DAILY 04/28/24 04/28/24 History Vitamin B Complex 1 cap PO DAILY 04/28/24 04/28/24 History Zinc Gluconate [Zinc] 50 mg PO DAILY 04/28/24 04/28/24 History Allergies Allergy/AdvReac Type Severity Reaction Status Date / Time niacin Allergy Itching Verified 04/28/24 14:39 [From Niaspan Extended-Release] Physical Exam Vitals: Vital Signs Temp Pulse Pulse Resp BP BP Pulse Ox 04/29/24 07:47 97.9 F 67 14 159/95 96 04/29/24 00:57 98.2 F 68 18 113/66 92 L 04/28/24 20:12 97.7 F 68 18 147/83 95 04/28/24 18:18 68 18 129/84 95 04/28/24 13:58 66 16 105/77 95 04/28/24 13:10 97.2 F L 76 16 117/74 97 Intake and Output 04/28/24 04/29/24 04/29/24 22:59 06:59 14:59 Other: # Voids 3 Weight 87.543 kg GENERAL DESCRIPTION: Middle-aged male lying in bed, no distress. No tachypnea or accessory muscle of respiration use. HEENT: Shows Pallor , no scleral icterus. Oral mucous membrane is dry. No phary ngeal erythema or thrush NECK: Trachea central, no thyromegaly. LUNGS: Unlabored breathing. Clear to auscultation anteriorly. No wheeze or crackle. HEART: S1, S2, regular rate and rhythm. No loud murmur ABDOMEN: Soft, no tenderness , guarding or rigidity, no organomegaly EXTREMITIES: No edema of feet. SKIN: No rash, no masses palpable. NEUROLOGICAL: The patient is awake, alert, oriented x3, mood and affect normal. Results CBC & Chem 7: 04/29/24 05:18 04/29/24 05:18 Labs: Abnormal Lab Results - Last 24 Hours (Table) 04/28/24 04/29/24 04/29/24 Range/Units 13:34 05:18 05:18 RDW 15.9 H (11.5-14.5) % Total Bilirubin 0.2 L (0.3-1.2) mg/dL Total Protein 5.9 L (6.2-8.2) g/dL Albumin 3.7 L (3.8-4.9) g/dL Urine Glucose (UA) 3+ H (Negative) Urine Blood Trace H (Negative) Urine Mucus Rare H (None) /hpf Assessment and Plan (1) Iliopsoas abscess on left Current Visit: Yes Status: Acute Code(s): K68.12 - PSOAS MUSCLE ABSCESS SNOMED Code(s): 285318998 Plan: 1patient presented to hospital with left groin pain and this patient has been diagnosed with a left iliopsoas abscess on the basis of the CT patient with no history of any trauma no high-grade fever or elevated white count 2-await surgical versus IR drainage and deep culture that will determine possible infective pathology 3-for now continue with vancomycin and cefepime while waiting for the workup to be completed Question concern answered We will follow on clinical condition and cultures to further adjust medication if needed Thank you for this consultation we will follow the patient along with you Dictation was produced using [employer] software. please excuse any grammatical, word or spelling errors. Time with Patient: Greater than 30
[2024-04-30 07:46] LABS: Glucose,Whole Blood 112 mg/dL (70-110)
--- NOTE | 2024-04-30 12:38 | P.PN ---
Subjective Progress Note Date: 04/30/24 Patient rhea stable. He states his back pain has improved. On exam vital signs appear stable. Abdomen soft. Iliopsoas abscess. Patient is scheduled to have interventional radiology attempt drainage.. We will plan for colonoscopy 4 to 6 weeks. Objective - Vital Signs Vital signs: Vital Signs Temp 98 F 04/30/24 07:56 Pulse 66 04/30/24 07:56 Resp 17 04/30/24 07:56 BP 146/85 04/30/24 07:56 Pulse Ox 97 04/30/24 07:56 FiO2 Intake & Output 04/29/24 04/30/24 04/30/24 18:59 06:59 18:59 Intake Total 240 Balance 240 Intake: Oral 240 Other: # Voids 3 2 # Bowel Movements 1 - Labs CBC & Chem 7: 04/29/24 05:18 04/29/24 05:18 Labs: Abnormal Lab Results - Last 24 Hours (Table) 04/29/24 04/30/24 Range/Units 20:14 07:38 POC Glucose (mg/dL) 129 H 112 H (70-110) mg/dL Microbiology - Last 24 Hours (Table) 04/28/24 18:34 Blood Culture - Preliminary Blood 04/28/24 16:20 Blood Culture - Preliminary Blood
[2024-04-30 12:39] LABS: Glucose,Whole Blood 105 mg/dL (70-110)
[2024-04-30 17:31] LABS: Glucose,Whole Blood 129 mg/dL (70-110)
[2024-04-30] MEDS: VANCOMYCIN TROUGH DUE 1 EACH MISC MISCELLANE ONE (18:35)
[2024-04-30 20:48] LABS: Glucose,Whole Blood 98 mg/dL (70-110)
--- NOTE | 2024-04-30 21:26 | P.PN ---
Subjective This is a 63-year-old male with a previous medical history significant for coronary artery disease status post PCI x 3 in 2012 under the care of Dr. Jimenez, hypertension and hypertensive cardiovascular disease, mixed hyperlipidemia, gout, enlarged prostate, GERD with esophagitis, glaucoma, osteoarthritis, chronic THC use, remote tobacco use and dependence, patient presented to the emergency department at [facility] because of increased pain in the left lower quadrant left groin area that was started about a week or 2 ago after he was working on his house, he reported that he had fallen last Wednesday, but he did not remember any injury, apparently the patient went to urgent care today and they were concerned about strangulated hernia so he was referred to the ER for evaluation, patient had a CT scan of the abdomen pelvis in the emergency department that showed evidence of what appears of possible left iliopsoas fluid collection/abscess that measures 2.3 x 3.2 x 8.3 cm intramuscular were organized suggestive of an abscess versus hematoma, which is most likely a cyst as the patient does not have any evidence of fever or chills but he had a prior history of trauma. Patient was admitted to the hospital under my service, general surgery consultation as well as infectious ease consultation along with interventional radiology consultation for possible CT guidance drainage, patient was started on IV antibiotic in the form of vancomycin as well as cefepime blood cultures were obtained. 04/29 Patient with no new complaint Pain is controlled. Mild pain comes and goes Continue with antibiotics 04/30 Abdominal pain controlled No other new symptom I told the patient about need for colonoscopy as an outpatient in 4 to 6 weeks with risk benefits explained for him extensively and he agrees Objective - Vital Signs Vital signs: Vital Signs Temp 98 F 04/30/24 18:52 Pulse 72 04/30/24 18:52 Resp 19 04/30/24 18:52 BP 132/86 04/30/24 18:52 Pulse Ox 95 04/30/24 18:52 FiO2 Intake & Output 04/30/24 04/30/24 05/01/24 06:59 18:59 06:59 Intake Total 240 1080 Balance 240 1080 Intake: Oral 240 1080 Other: # Voids 2 3 - Exam GENERAL: The patient is alert and oriented x3, not in any acute distress. Well developed, well nourished. HEENT: Pupils are round and equally reacting to light. EOMI. No scleral icterus. No conjunctival pallor. Normocephalic, atraumatic. No pharyngeal erythema. No thyromegaly. CARDIOVASCULAR: S1 and S2 present. No murmurs, rubs, or gallops. PULMONARY: Chest is clear to auscultation, no wheezing , no crackles. ABDOMEN: Soft, nontender, nondistended, normoactive bowel sounds. No palpable organomegaly. MUSCULOSKELETAL: No joint swelling or deformity. EXTREMITIES: No cyanosis, clubbing, or pedal edema. NEUROLOGICAL: Gross neurological examination did not reveal any focal deficits. SKIN: No rashes. no petechiae. - Labs CBC & Chem 7: 04/29/24 05:18 04/29/24 05:18 Labs: Abnormal Lab Results - Last 24 Hours (Table) 04/30/24 04/30/24 Range/Units 07:38 17:20 POC Glucose (mg/dL) 112 H 129 H (70-110) mg/dL Microbiology - Last 24 Hours (Table) 04/28/24 18:34 Blood Culture - Preliminary Blood 04/28/24 16:20 Blood Culture - Preliminary Blood Assessment and Plan Assessment: ASSESSMENT AND PLAN: 1. Left iliopsoas intramuscular fluid collection likely hematoma doubt abscess. Patient will be admitted to the hospital for further evaluation, patient will be started on IV antibiotic in the form of vancomycin pharmacy to dose his peak and trough, cefepime 2 g piggyback every 8 hours, obtain infectious's consultation, general surgery consultation, will consult interventional radiology for possible CT-guided drain of the fluid. Will continue to monitor the patient very closely at this point in time. 2. Coronary artery disease status post PCI x 3 in 2011. Continue patient on aspirin 81 mg once every day, metoprolol ER 50 mg orally once every day, atorvastatin 80 mg once every day, monitor the patient's symptoms very closely, continue isosorbide mononitrate 30 mg orally once every day patient follows with cardiology on a regular basis Dr. Jimenez. 3. Hypertension and hypertensive cardiovascular disease. Continue patient on amlodipine benazepril 5/40 mg orally once every day, metoprolol XL 50 mg orally once every day, monitor the patient blood pressure very closely. 4. Mixed hyperlipidemia. Continue patient on atorvastatin 80 mg once every day monitor the patient blood panel, keep LDL 55-70. 5. Enlarged prostate. Monitor the patient for urinary retention. 6. GERD with esophagitis. Continue pantoprazole 40 mg orally once every day. 7. History of gout. Stable at this time. 8. Anxiety disorder. Continue patient on Wellbutrin 150 mg once every day as well as paroxetine 40 mg once every day. 9. Chronic THC use. Patient was advised against its use. 10. History of glaucoma. Continue Xalatan at bedtime. 11. COPD. Continue patient on albuterol HFA 2 puffs inhalation every 4 hours as needed. 12. Left renal cyst has been followed by a CT urogram on yearly basis. 13. DVT prophylaxis. Lovenox 40 mg subcutaneous every 24 hours. 14. GI prophylaxis. Continue patient on Protonix 40 mg orally once every day. 15. Admit to inpatient. Estimated length of stay 2 midnights for 16. Patient is full code
[2024-05-01 06:10] LABS: African American GFR (CKD) >90 (>60 ml/min/1.73 sqM); Non-African American GFR(CKD) 86 (>60 ml/min/1.73 sqM)
[2024-05-01 07:24] LABS: Glucose,Whole Blood 110 mg/dL (70-110)
--- NOTE | 2024-05-01 07:52 | P.PN ---
Subjective Progress Note Date: 04/30/24 Principal diagnosis: Reason for follow-up is left iliopsoas abscess/hematoma Patient is a 63-year-old male with a past medical history significant for diabetes mellitus hypertension [place] reflux patient presenting to the hospital for evaluation of pain to the left lower groin area that apparently has been going on for about a week or 2, the patient did have a CT pelvis with evidence of left iliopsoas muscle hematoma versus abscess. On today's evaluation that is 04/30/2024,the patient denies any fever or any chills, patient is breathing comfortably on room air, the patient denies chest pain shortness of breath and no significant cough, patient denies abdominal mayelin n, no nausea vomiting or diarrhea. Patient left groin pain has decreased in intensity. Patient did not have any lab draw today cultures are currently pending Objective - Vital Signs Vital signs: Vital Signs Temp 98 F 04/30/24 18:52 Pulse 72 04/30/24 18:52 Resp 19 04/30/24 18:52 BP 132/86 04/30/24 18:52 Pulse Ox 95 04/30/24 18:52 FiO2 Intake & Output 04/30/24 04/30/24 05/01/24 06:59 18:59 06:59 Intake Total 240 1080 Balance 240 1080 Intake: Oral 240 1080 Other: # Voids 2 3 - Exam GENERAL DESCRIPTION: Middle-age male up in bed in no distress RESPIRATORY SYSTEM: Unlabored breathing , decreased breath sounds at bases HEART: S1 S2 regular rate and rhythm , ABDOMEN: Soft , no tenderness EXTREMITIES: No edema feet - Labs CBC & Chem 7: 04/29/24 05:18 05/01/24 05:00 Labs: Abnormal Lab Results - Last 24 Hours (Table) 04/30/24 04/30/24 Range/Units 07:38 17:20 POC Glucose (mg/dL) 112 H 129 H (70-110) mg/dL Microbiology - Last 24 Hours (Table) 04/28/24 18:34 Blood Culture - Preliminary Blood 04/28/24 16:20 Blood Culture - Preliminary Blood Assessment and Plan (1) Iliopsoas abscess on left Current Visit: Yes Status: Acute Code(s): K68.12 - PSOAS MUSCLE ABSCESS SNOMED Code(s): 417304242 Plan: 1patient presented to hospital with left groin pain and this patient has been diagnosed with a left iliopsoas abscess on the basis of the CT patient with no history of any trauma no high-grade fever or elevated white count 2-await possible IR drainage and deep culture that will determine possible infecting pathogen 3-patient is broadly covered with vancomycin and cefepime while waiting for the workup to be completed Dictation was produced using [employer] dictation software. please excuse any grammatical, word or spelling errors. Time with Patient: Less than 30
[2024-05-01 09:50] LABS: Prothrombin Time 11.1 sec (10.0-12.5)
--- NOTE | 2024-05-01 11:52 | P.PN ---
Subjective Progress Note Date: 05/01/24 SURGICAL PROGRESS NOTE CHIEF COMPLAINT: Left iliopsoas abscess HISTORY OF PRESENT ILLNESS: Patient reports his pain is less. He is scheduled for possible IR drain today. Afebrile PHYSICAL EXAM: VITAL SIGNS: Reviewed. GENERAL: Well-developed in no acute distress. ABDOMEN: Soft. Nondistended. NEUROLOGIC: Alert and oriented. Cranial nerves II through XII grossly intact. ASSESSMENT: 1. Left iliopsoas abscess PLAN: -Scheduled for drain placement by IR service today -Recommend colonoscopy in 4 to 6 weeks -Antibiotics per ID service Physician Senior Outside Sales Representative note has been reviewed by physician. Signing provider agrees with the documented findings, assessment, and plan of care. Objective - Vital Signs Vital signs: Vital Signs Temp 97.9 F 05/01/24 07:30 Pulse 74 05/01/24 07:30 Resp 17 05/01/24 07:30 BP 143/89 05/01/24 07:30 Pulse Ox 97 05/01/24 07:30 FiO2 Intake & Output 04/30/24 05/01/24 05/01/24 18:59 06:59 18:59 Intake Total 1080 1300 Balance 1080 1300 Intake: Intake, IV Titration 1300 Amount Cefepime 2 gm In Sodium 200 Chloride 0.9% 100 ml @ 25 mls/hr IVPB Q8H [facility] Rx#: [id number] Sodium Chloride 0.9% 1, 600 000 ml @ 75 mls/hr IV . [id number] [facility] Rx#:[id number] Vancomycin 1,500 mg In 500 Sodium Chloride 0.9% 500 ml 500 ml @ 167 mls/hr IVPB Q12H [facility] Rx#: [id number] Oral 1080 Other: # Voids 3 1 - Labs CBC & Chem 7: 04/29/24 05:18 05/01/24 05:00 Labs: Abnormal Lab Results - Last 24 Hours (Table) 04/30/24 Range/Units 17:20 POC Glucose (mg/dL) 129 H (70-110) mg/dL Microbiology - Last 24 Hours (Table) 04/28/24 18:34 Blood Culture - Preliminary Blood 04/28/24 16:20 Blood Culture - Preliminary Blood
[2024-05-01 12:03] LABS: Glucose,Whole Blood 91 mg/dL (70-110)
--- NOTE | 2024-05-01 13:04 | P.PN ---
Subjective Progress Note Date: 05/01/24 This is a 63-year-old male with a previous medical history significant for coronary artery disease status post PCI x 3 in 2012 under the care of Dr. Jimenez, hypertension and hypertensive cardiovascular disease, mixed hyperlipidemia, gout, enlarged prostate, GERD with esophagitis, glaucoma, osteoa rthritis, chronic THC use, remote tobacco use and dependence, patient presented to the emergency department at [facility] because of increased pain in the left lower quadrant left groin area that was started about a week or 2 ago after he was working on his house, he reported that he had fallen last Wednesday, but he did not remember any injury, apparently the patient went to urgent care today and they were concerned about strangulated hernia so he was referred to the ER for evaluation, patient had a CT scan of the abdomen pelvis in the emergency department that showed evidence of what appears of possible left iliopsoas fluid collection/abscess that measures 2.3 x 3.2 x 8.3 cm intram uscular were organized suggestive of an abscess versus hematoma, which is most likely a cyst as the patient does not have any evidence of fever or chills but he had a prior history of trauma. Patient was admitted to the hospital under my service, general surgery consultation as well as infectious ease consultation along with interventional radiology consultation for possible CT guidance drainage, patient was started on IV antibiotic in the form of vancomycin as well as cefepime blood cultures were obtained. 04/29 Patient with no new complaint Pain is controlled. Mild pain comes and goes Continue with antibiotics 04/30 Abdominal pain controlled No other new symptom I told the patient about need for colonoscopy as an outpatient in 4 to 6 weeks with risk benefits explained for him extensively and he agrees 05/01: Patient is sitting up in bed in no apparent distress, he denies any chest pain, shortness of breath, he has no abdominal pain, he is able to move left lower extremity, we are awaiting interventional radiology for CT guidance drainage of the abscess of the left iliopsoas muscle, patient continues to be on vancomycin as well as cefepime, infectious disease is following along with general surgery, we will try to continue same treatment plan. Patient has no sore throat, he has no abdominal pain, nausea vomiting or diarrhea. REVIEW OF SYSTEMS: Constitutional: No documented fever, no chills, no night sweats. No weight change. No weakness, fatigue or lethargy. No daytime sleepiness. EENT: No headache. No blurred vision or double vision, no loss of vision. No loss of Hearing, no ringing in the ears, no dizziness. No nasal drainage or congestion. No epistaxis. No sore throat. Lungs: No shortness of breath, no cough, no sputum production. No wheezing. Reports dyspnea with activity. Cardiovascular: No chest pain, no lower extremity edema. No palpitations. No paroxysmal nocturnal dyspnea. No orthopnea. No lightheadedness or dizziness. No syncopal episodes. Abdominal: Reports abdominal pain. No nausea, vomiting. No diarrhea. No constipation. No bloody or tarry stools reports loss of appetite. Genitourinary: No dysuria, increased frequency, urgency. No urinary retention. Musculoskeletal: No myalgias. No muscle weakness, no gait dysfunction, no frequent falls. positive for back pain. No neck pain, positive for left leg weakness Integumentary: No wounds, no lesions. No rash or pruritus. No unusual bruising. No change in hair or nails. Neurologic: No aphasia. No facial droop. No change in mentation. No head injury. No headache. No paralysis. No paresthesia, left leg raise is limited Psychiatric: No depression. positive for anxiety. No mood swings. Endocrine: No abnormal blood sugars. No weight change. PHYSICAL EXAMINATION: General: 63-year-old male laying down in bed in no apparent distress. HEENT: Head is atraumatic, normocephalic, pupils were equal round reactive to light and recommendation, extraocular muscle movement were intact, sclera nonicteric, conjunctivae were pale, mucous membranes of the mouth are somewhat dry. Neck: Supple, no JVP, normal carotid upstroke bilaterally, no lymphadenopathy. Chest: Decreased breath sounds at the bases, few rhonchi, minimal expiratory wheezes, no chest wall tenderness, no intercostal retractions. Heart: First heart sound is normal, second heart sound is normal there is systolic ejection murmur 2/6 located in the left sternal border. Abdomen: Soft, tenderness to the left lower quadrant, nondistended, positive bowel sounds. Extremities: There is no edema no calf tenderness DP +2 bilaterally. Neurologic examination: Patient is awake alert and oriented x3, cranial nerves II-12 appear grossly intact, muscle power were 5 out of 5 in upper extremities and 5 out of 5 in bilateral lower extremities, deep tendon reflexes normal bilaterally limitation to elevate the left lower extremity due to iliopsoas hematoma versus abscess. ASSESSMENT AND PLAN: 1. Left iliopsoas intramuscular fluid collection likely hematoma doubt abscess. Continue IV antibiotic in the form of vancomycin with pharmacy to dose its peak and trough, continue cefepime, continue to monitor the patient very closely, interventional radiology for CT-guided drainage of the abscess. 2. Coronary artery disease status post PCI x 3 in 2011. Continue patient on aspirin 81 mg once every day, metoprolol ER 50 mg orally once every day, atorvastatin 80 mg once every day, monitor the patient's symptoms very closely, continue isosorbide mononitrate 30 mg orally once every day patient follows with cardiology on a regular basis Dr. Jimenez. 3. Hypertension and hypertensive cardiovascular disease. Continue patient on amlodipine benazepril 5/40 mg orally once every day, metoprolol XL 50 mg orally once every day, monitor the patient blood pressure very closely. 4. Mixed hyperlipidemia. Continue patient on atorvastatin 80 mg once every day monitor the patient blood panel, keep LDL 55-70. 5. Enlarged prostate. Monitor the patient for urinary retention. 6. GERD with esophagitis. Continue pantoprazole 40 mg orally once every day. 7. History of gout. Stable at this time. 8. Anxiety disorder. Continue patient on Wellbutrin 150 mg once every day as well as paroxetine 40 mg once every day. 9. Chronic THC use. Patient was advised against its use. 10. History of glaucoma. Continue Xalatan at bedtime. 11. COPD. Continue patient on albuterol HFA 2 puffs inhalation every 4 hours as needed. 12. Left renal cyst has been followed by a CT urogram on yearly basis. 13. DVT prophylaxis. Lovenox 40 mg subcutaneous every 24 hours. 14. GI prophylaxis. Continue patient on Protonix 40 mg orally once every day. 15. Will continue to follow-up with the patient. Objective - Vital Signs Vital signs: Vital Signs Temp 97.9 F 05/01/24 07:30 Pulse 74 05/01/24 07:30 Resp 17 05/01/24 07:30 BP 143/89 05/01/24 07:30 Pulse Ox 97 05/01/24 07:30 FiO2 Intake & Output 04/30/24 05/01/24 05/01/24 18:59 06:59 18:59 Intake Total 1080 1300 Balance 1080 1300 Intake: Intake, IV Titration 1300 Amount Cefepime 2 gm In Sodium 200 Chloride 0.9% 100 ml @ 25 mls/hr IVPB Q8H [facility] Rx#: [id number] Sodium Chloride 0.9% 1, 600 000 ml @ 75 mls/hr IV . [id number] [facility] Rx#:[id number] Vancomycin 1,500 mg In 500 Sodium Chloride 0.9% 500 ml 500 ml @ 167 mls/hr IVPB Q12H [facility] Rx#: [id number] Oral 1080 Other: # Voids 3 1 - Labs CBC & Chem 7: 04/29/24 05:18 05/01/24 05:00 Labs: Abnormal Lab Results - Last 24 Hours (Table) 04/30/24 Range/Units 17:20 POC Glucose (mg/dL) 129 H (70-110) mg/dL Microbiology - Last 24 Hours (Table) 04/28/24 18:34 Blood Culture - Preliminary Blood 04/28/24 16:20 Blood Culture - Preliminary Blood
[2024-05-01 17:17] LABS: Glucose,Whole Blood 95 mg/dL (70-110)
[2024-05-01 20:46] LABS: Glucose,Whole Blood 127 mg/dL (70-110)
[2024-05-02 04:51] LABS: ALT 19 U/L (4-49); AST 21 U/L (17-59); African American GFR (CKD) >90 (>60 ml/min/1.73 sqM); Albumin 3.7 g/dL (3.5-5.0); Albumin/Globulin Ratio 1.5; Alkaline Phosphatase 61 U/L (38-126); Anion Gap 7 mmol/L; Blood Urea Nitrogen 11 mg/dL (9-20); Calcium 8.9 mg/dL (8.4-10.2); Carbon Dioxide 23 mmol/L (22-30); Chloride 112 mmol/L (98-107); Globulin 2.5 g/dL; Glucose 97 mg/dL (74-99); Non-African American GFR(CKD) >90 (>60 ml/min/1.73 sqM); Potassium 4.3 mmol/L (3.5-5.1); Sodium 142 mmol/L (137-145); Total Bilirubin 0.5 mg/dL (0.2-1.3); Total Protein 6.2 g/dL (6.3-8.2)
[2024-05-02 07:12] LABS: Glucose,Whole Blood 94 mg/dL (70-110)
--- NOTE | 2024-05-02 08:57 | P.PN ---
Subjective Progress Note Date: 05/01/24 Principal diagnosis: Reason for follow-up is left iliopsoas abscess/hematoma Patient is a 63-year-old male with a past medical history significant for diabetes mellitus hypertension [place] reflux patient presenting to the hospital for evaluation of pain to the left lower groin area that apparently has been going on for about a week or 2, the patient did have a CT pelvis with evidence of left iliopsoas muscle hematoma versus abscess. On today's evaluation that is 05/01/2024,the patient remains to be afebrile, patient is on room air not requiring supplemental oxygen and denies any shortness of breath no chest pain or cough.Patient denies having any nausea or vomiting, no abdominal pain and pain to the left groin has decreased in intensity. Patient did have creatinine 0.94 blood cultures currently pending Objective - Vital Signs Vital signs: Vital Signs Temp 97.9 F 05/01/24 07:30 Pulse 74 05/01/24 07:30 Resp 17 05/01/24 07:30 BP 143/89 05/01/24 07:30 Pulse Ox 97 05/01/24 07:30 FiO2 Intake & Output 04/30/24 05/01/24 05/01/24 18:59 06:59 18:59 Intake Total 1080 1300 Balance 1080 1300 Intake: Intake, IV Titration 1300 Amount Cefepime 2 gm In Sodium 200 Chloride 0.9% 100 ml @ 25 mls/hr IVPB Q8H [facility] Rx#: [id number] Sodium Chloride 0.9% 1, 600 000 ml @ 75 mls/hr IV . [id number] [facility] Rx#:[id number] Vancomycin 1,500 mg In 500 Sodium Chloride 0.9% 500 ml 500 ml @ 167 mls/hr IVPB Q12H [facility] Rx#: [id number] Oral 1080 Other: # Voids 3 1 - Exam GENERAL DESCRIPTION: Middle-age male up in bed in no distress RESPIRATORY SYSTEM: Unlabored breathing , decreased breath sounds at bases HEART: S1 S2 regular rate and rhythm , ABDOMEN: Soft , no tenderness EXTREMITIES: No edema feet - Labs CBC & Chem 7: 04/29/24 05:18 05/02/24 04:10 Labs: Abnormal Lab Results - Last 24 Hours (Table) 04/30/24 Range/Units 17:20 POC Glucose (mg/dL) 129 H (70-110) mg/dL Microbiology - Last 24 Hours (Table) 04/28/24 18:34 Blood Culture - Preliminary Blood 04/28/24 16:20 Blood Culture - Preliminary Blood Assessment and Plan (1) Iliopsoas abscess on left Current Visit: Yes Status: Acute Code(s): K68.12 - PSOAS MUSCLE ABSCESS SNOMED Code(s): 056100068 Plan: 1patient presented to hospital with left groin pain and this patient has been diagnosed with a left iliopsoas abscess on the basis of the CT patient with no history of any trauma no high-grade fever or elevated white count 2-IR is not recommending drainage and concern possibly related to the left hip degradation orthopedic has been consulted for further evaluation 3-patient to continue with vancomycin and cefepime while waiting for the workup to be completed Dictation was produced using [email or web address] dictation software. please excuse any grammatical, word or spelling errors. Time with Patient: Less than 30
[2024-05-02 10:13] LABS: Basophils # (A) 0.04 X 10*3/uL (0.00-0.10); Basophils % (A) 0.6 %; Eosinophils # (A) 0.22 X 10*3/uL (0.04-0.35); Eosinophils % (A) 3.4 %; HCT 44.8 % (39.6-50.0); HGB 14.4 g/dL (13.0-17.0); Lymphocytes # (A) 1.61 X 10*3/uL (0.90-5.00); MCHC 32.1 g/dL (32.0-37.0); MCV 90.3 FL (80.0-97.0); Mean Platelet Volume 10.9 FL (9.5-12.2); Monocytes # (A) 0.56 X 10*3/uL (0.20-1.00); Monocytes % (A) 8.7 %; NRBC Per 100 WBC 0 X 10*3/uL (0.00-0.01); Neutrophils # (A) 3.98 X 10*3/uL (1.80-7.70); Neutrophils % (A) 61.8 %; Platelet Count 176 X 10*3/uL (140-440); RBC 4.96 X 10*6/uL (4.40-5.60); RDW 15.9 % (11.5-14.5); WBC 6.44 X 10*3/uL (4.50-10.00)
[2024-05-02 12:07] LABS: Glucose,Whole Blood 94 mg/dL (70-110)
--- NOTE | 2024-05-02 14:08 | P.PN ---
Subjective Progress Note Date: 05/02/24 SURGICAL PROGRESS NOTE CHIEF COMPLAINT: Left groin pain HISTORY OF PRESENT ILLNESS: Patient reports that he is feeling better. His pain is starting to decrease. He is walking easier. Dr. Bateman reporting that the fluid is secondary to degeneration of the left hip. He is not recommending IR intervention. He recommended MRI of the left hip with contrast. Also recommending patient needs hip surgery. He reports that the severe degeneration and fluid broke out and can see a tiny track. Similar to geyser sign with shoulders. Orthopedic service has been consulted. PHYSICAL EXAM: VITAL SIGNS: Reviewed. GENERAL: Well-developed in no acute distress. ABDOMEN: Soft. Nondistended. NEUROLOGIC: Alert and oriented. Cranial nerves II through XII grossly intact. ASSESSMENT: 1. Left groin pain with fluid noted on imaging secondary to degeneration of the left hip. PLAN: -Awaiting further recommendations per orthopedic service -No surgical intervention planned from general surgery Physician Corrections Caseworker note has been reviewed by physician. Signing provider agrees with the documented findings, assessment, and plan of care. Objective - Vital Signs Vital signs: Vital Signs Temp 98.1 F 05/02/24 13:35 Pulse 68 05/02/24 13:35 Resp 16 05/02/24 13:35 BP 148/79 05/02/24 13:35 Pulse Ox 96 05/02/24 13:35 FiO2 Intake & Output 05/01/24 05/02/24 05/02/24 18:59 06:59 18:59 Intake Total 1080 Balance 1080 Intake: Oral 1080 Other: # Voids 2 1 - Labs CBC & Chem 7: 05/02/24 04:10 05/02/24 04:10 Labs: Abnormal Lab Results - Last 24 Hours (Table) 05/01/24 05/02/24 05/02/24 Range/Units 20:45 04:10 04:10 RDW 15.9 H (11.5-14.5) % Chloride 112 H (98-107) mmol/L POC Glucose (mg/dL) 127 H (70-110) mg/dL Total Protein 6.2 L (6.3-8.2) g/dL Microbiology - Last 24 Hours (Table) 04/28/24 18:34 Blood Culture - Preliminary Blood 04/28/24 16:20 Blood Culture - Preliminary Blood
--- NOTE | 2024-05-02 14:37 | P.PN ---
Subjective Progress Note Date: 05/02/24 Principal diagnosis: Reason for follow-up is left iliopsoas abscess/hematoma Patient is a 63-year-old male with a past medical history significant for diabetes mellitus hypertension [place] reflux patient presenting to the hospital for evaluation of pain to the left lower groin area that apparently has been going on for about a week or 2, the patient did have a CT pelvis with evidence of left iliopsoas muscle hematoma versus abscess. On today's evaluation that is 05/02/2024, the patient continues to be afebrile, the patient is on room air and breathing comfortably, the Pt denies having any chest pain or cough, the patient denies having any abdominal pain no vomiting or any diarrhea, pain to the left hip has decreased in intensity. Patient did have white count of 6.44, creatinine 0.87 blood culture have been negative so far Objective - Vital Signs Vital signs: Vital Signs Temp 98.1 F 05/02/24 13:35 Pulse 68 05/02/24 13:35 Resp 16 05/02/24 13:35 BP 148/79 05/02/24 13:35 Pulse Ox 96 05/02/24 13:35 FiO2 Intake & Output 05/01/24 05/02/24 05/02/24 18:59 06:59 18:59 Intake Total 1080 Balance 1080 Intake: Oral 1080 Other: # Voids 2 1 - Exam GENERAL DESCRIPTION: Middle-age male up in bed in no distress RESPIRATORY SYSTEM: Unlabored breathing , decreased breath sounds at bases HEART: S1 S2 regular rate and rhythm , ABDOMEN: Soft , no tenderness EXTREMITIES: No edema feet - Labs CBC & Chem 7: 05/02/24 04:10 05/02/24 04:10 Labs: Abnormal Lab Results - Last 24 Hours (Table) 05/01/24 05/02/24 05/02/24 Range/Units 20:45 04:10 04:10 RDW 15.9 H (11.5-14.5) % Chloride 112 H (98-107) mmol/L POC Glucose (mg/dL) 127 H (70-110) mg/dL Total Protein 6.2 L (6.3-8.2) g/dL Microbiology - Last 24 Hours (Table) 04/28/24 18:34 Blood Culture - Preliminary Blood 04/28/24 16:20 Blood Culture - Preliminary Blood Assessment and Plan (1) Iliopsoas abscess on left Current Visit: Yes Status: Acute Code(s): K68.12 - PSOAS MUSCLE ABSCESS SNOMED Code(s): 895879425 Plan: 1patient presented to hospital with left groin pain and this patient has been diagnosed with a left iliopsoas abscess on the basis of the CT patient with no history of any trauma no high-grade fever or elevated white count 2-IR is not recommending drainage and concern possibly related to the left hip degradation orthopedic has been consulted, discussed with Dr. Wray images were reviewed with him and his looks more of a advanced degenerative changes to the left hip possible fall leading to effusion that may have tracked upwards keeping in mind normal white count sed rate no fever making to be less likely infectious may continue cefepime however will discontinue vancomycin to decrease risk of nephrotoxicity Dictation was produced using [employer] dictation software. please excuse any grammatical, word or spelling errors. Time with Patient: Less than 30
--- NOTE | 2024-05-02 15:02 | P.CNOR ---
History of Present Illness - [facility] Consult date: 05/02/24 History of present illness: The patient is a very pleasant relatively healthy 63-year-old male who is admitted to internal medicine with intractable left hip pain. According to the patient he missed 2 steps [facility] week or so ago and has had increased groin pain since that time. He initially thought it was a hernia and presented to urgent care transferred him to the emergency department. During the course of his workup advanced imaging showed a fluid collection in the iliopsoas concerning for hematoma versus abscess. Interventional radiology was consulted but on further view of the imaging they felt the fluid collection was not infectious and related to his advanced arthritis. Orthopedics was consulted. This afternoon I evaluated the patient at bedside. His pain has significantly improved. He has some groin discomfort with movement but otherwise is doing well. He denies fevers or chills. He denies being recently ill. He has no other complaints. Past Medical History Past Medical History: Diabetes Mellitus, GERD/Reflux, Hypertension, Myocardial Infarction (NE) Additional Past Medical History / Comment(s): NE x4 Last Myocardial Infarction Date:: december 23/2012 History of Any Multi-Drug Resistant Organisms: None Reported Past Surgical History: Heart Catheterization With Stent Additional Past Surgical History / Comment(s): total of 3 cardiac stents, colonoscopy Past Anesthesia/Blood Transfusion Reactions: No Reported Reaction Date of Last Stent Placement:: 12/2023 Past Psychological History: Anxiety, Depression Smoking Status: Former smoker Past Alcohol Use History: None Reported Past Drug Use History: Marijuana - Past Family History Father Family Medical History: No Reported History Medications and Allergies Home Medications Medication Instructions Recorded Confirmed Type Isosorbide Mononitrate ER [Imdur] 30 mg PO DAILY 05/13/18 04/28/24 History Latanoprost/Pf [Latanoprost 0.005% 1 drop BOTH EYES HS 05/13/18 04/28/24 History Eye Drop] Metoprolol Succinate (ER) [Toprol 50 mg PO DAILY 05/13/18 04/28/24 History XL] PARoxetine HCL [Paxil] 40 mg PO DAILY 05/13/18 04/28/24 History buPROPion HCL [Wellbutrin SR] 150 mg PO DAILY 05/13/18 04/28/24 History Rosuvastatin Calcium [Crestor] 40 mg PO DAILY 01/07/21 04/28/24 History amLODIPine BESYLATE/BENAZEPRIL 1 cap PO DAILY 01/07/21 04/28/24 History [amLODIPine BESYLATE/BENAZEPRIL 5-40 MG] Albuterol Sulfate [Albuterol 1 - 2 puff PO RT-Q4H PRN 04/28/24 04/28/24 History Sulfate Hfa] Dapagliflozin Propanediol [Farxiga] 5 mg PO DAILY 04/28/24 04/28/24 History Pantoprazole [Protonix] 40 mg PO DAILY 04/28/24 04/28/24 History Ubidecarenone [Co Q-10] 300 mg PO DAILY 04/28/24 04/28/24 History Vitamin B Complex 1 cap PO DAILY 04/28/24 04/28/24 History Zinc Gluconate [Zinc] 50 mg PO DAILY 04/28/24 04/28/24 History Allergies Allergy/AdvReac Type Severity Reaction Status Date / Time niacin Allergy Itching Verified 04/28/24 14:39 [From Niaspan Extended-Release] Physical Examination The patient is resting comfortably in his bed. He is alert and able to answer questions. His head is normocephalic and atraumatic. He demonstrates nonlabored breathing with symmetric chest expansion. A focused exam of the left lower extremity was conducted. On inspection of the skin over the left hip there is no erythema or warmth. He has minimal to no pain with logroll. He does have pain with passive internal and external rotation with the hip flexed to 90. Stinchfield is positive. His thigh and calf are soft. Motor and sensory function are intact. Results Imaging of the pelvis including a computed tomography scan was reviewed. The patient has advanced arthritis in both hips, left worse than right. There is a fluid collection in the iliopsoas consistent with a hematoma. - Labs Labs: Abnormal Lab Results - Last 24 Hours (Table) 05/01/24 05/02/24 05/02/24 Range/Units 20:45 04:10 04:10 RDW 15.9 H (11.5-14.5) % Chloride 112 H (98-107) mmol/L POC Glucose (mg/dL) 127 H (70-110) mg/dL Total Protein 6.2 L (6.3-8.2) g/dL Microbiology - Last 24 Hours (Table) 11/15/24 18:34 Blood Culture - Preliminary Blood 04/28/24 16:20 Blood Culture - Preliminary Blood H & H 04/28/24 04/29/24 05/02/24 Range/Units 13:34 05:18 04:10 Hgb 15.4 14.3 14.4 (13.0-17.5) gm/dL Hct 47.3 44.7 44.8 (39.0-53.0) % Coagulation 05/01/24 Range/Units 09:29 INR 1.0 (<1.2) Result Diagrams: 05/02/24 04:10 05/02/24 04:10 Assessment and Plan Assessment: Severe left hip osteoarthritis, likely acute flare Iliopsoas fluid collection etiology hematoma versus communication from synovial fluid, low suspicion for infection Plan: Given the patient's history, physical exam, lab studies, and imaging I think that his hip/groin pain is most likely from an acute flare of arthritis and not infection. However given that infection has been documented in the chart and radiology has recommended an MRI I will order an MRI with and without contrast as well as repeat inflammatory markers including a CRP to rule out infection. If there is any concern for infection he would need an image guided aspiration of the hip joint to send the fluid for cell count with differential and cultures prior to any open surgical procedure. Again I have a low suspicion of him having a deep space infection. This was discussed both with the patient and his who is at bedside. If there is low suspicion for infection following MRI and inflammatory markers I can see the patient as an outpatient to discuss elect daniela total hip replacement. Time with Patient: Greater than 30
[2024-05-03] MEDS ORDERED: VANCOMYCIN TROUGH DUE 1 EACH MISC MISCELLANE ONE (05:00)
--- NOTE | 2024-05-03 12:12 | P.PN ---
Subjective Progress Note Date: 05/03/24 SURGICAL PROGRESS NOTE CHIEF COMPLAINT: Left groin pain HISTORY OF PRESENT ILLNESS: Patient reporting that his pain is feeling better. Patient was seen by orthopedic service. They have ordered an MRI of the left hip. Afebrile. PHYSICAL EXAM: VITAL SIGNS: Reviewed. GENERAL: Well-developed in no acute distress. ABDOMEN: Soft. Nondistended. NEUROLOGIC: Alert and oriented. Cranial nerves II through XII grossly intact. ASSESSMENT: 1. Left groin/hip pain with fluid noted on imaging secondary to degeneration of the left hip. PLAN: -Continue orthopedic workup -Awaiting further recommendations per orthopedic service -No surgical intervention planned from general surgery Physician Cartographic Aide note has been reviewed by physician. Signing provider agrees with the documented findings, assessment, and plan of care. Objective - Vital Signs Vital signs: Vital Signs Temp 97.2 F L 05/03/24 07:41 Pulse 70 05/03/24 07:41 Resp 16 05/03/24 07:41 BP 162/88 05/03/24 07:41 Pulse Ox 96 05/03/24 07:41 FiO2 Intake & Output 05/02/24 05/03/24 05/03/24 18:59 06:59 18:59 Intake Total 540 Balance 540 Intake: Oral 540 Other: Voiding Method Toilet # Voids 1 - Labs CBC & Chem 7: 05/02/24 04:10 05/02/24 04:10 Labs: Abnormal Lab Results - Last 24 Hours (Table) 05/02/24 Range/Units 15:33 ESR 23 H (0-20) mm/Hr
--- NOTE | 2024-05-03 12:19 | P.PN ---
Subjective Progress Note Date: 05/03/24 Principal diagnosis: Reason for follow-up is left iliopsoas abscess/hematoma Patient is a 63-year-old male with a past medical history significant for diabetes mellitus hypertension MS reflux patient presenting to the hospital for evaluation of pain to the left lower groin area that apparently has been going on for about a week or 2, the patient did have a CT pelvis with evidence of left iliopsoas muscle hematoma versus abscess. On today's evaluation that is 05/03/2024, patient has been afebrile, patient is breathing comfortably and is currently on room air, patient denies having any significant cough no chest pain, patient denies nausea vomiting or diarrhea and no abdominal pain pain to the left hip has decreased in intensity. Patient did have a surgery of 23 CRP less than 0.5 blood culture negative Objective - Vital Signs Vital signs: Vital Signs Temp 97.2 F L 05/03/24 07:41 Pulse 70 05/03/24 07:41 Resp 16 05/03/24 07:41 BP 162/88 05/03/24 07:41 Pulse Ox 96 05/03/24 07:41 FiO2 Intake & Output 05/02/24 05/03/24 05/03/24 18:59 06:59 18:59 Intake Total 540 Balance 540 Intake: Oral 540 Other: Voiding Method Toilet # Voids 1 - Exam GENERAL DESCRIPTION: Middle-age male up in bed in no distress RESPIRATORY SYSTEM: Unlabored breathing , decreased breath sounds at bases HEART: S1 S2 regular rate and rhythm , ABDOMEN: Soft , no tenderness EXTREMITIES: No edema feet - Labs CBC & Chem 7: 05/02/24 04:10 05/02/24 04:10 Labs: Abnormal Lab Results - Last 24 Hours (Table) 05/02/24 Range/Units 15:33 ESR 23 H (0-20) mm/Hr Assessment and Plan (1) Iliopsoas abscess on left Current Visit: Yes Status: Acute Code(s): K68.12 - PSOAS MUSCLE ABSCESS SNOMED Code(s): 928313395 Plan: 1patient presented to hospital with left groin pain and this patient has been diagnosed with a left iliopsoas abscess on the basis of the CT patient with no history of any trauma no high-grade fever or elevated white count 2-IR is not recommending drainage and concern possibly related to the left hip degradation orthopedic has been consulted, discussed with Dr. Wray images were reviewed with him and his looks more of a advanced degenerative changes to the left hip possible fall leading to effusion that may have tracked upwards keeping in mind normal white count sed rate no fever making to be less likely infectious 3-we will go ahead and discontinue cefepime and monitor the patient closely off antibiotic Dictation was produced using [employer] dictation software. please excuse any grammatical, word or spelling errors. Time with Patient: Less than 30
--- NOTE | 2024-05-03 13:39 | P.PN ---
Subjective Progress Note Date: 05/03/24 This is a 63-year-old male with a previous medical history significant for coronary artery disease status post PCI x 3 in 2012 under the care of Dr. Jimenez, hypertension and hypertensive cardiovascular disease, mixed hyperlipidemia, gout, enlarged prostate, GERD with esophagitis, glaucoma, osteoa rthritis, chronic THC use, remote tobacco use and dependence, patient presented to the emergency department at [facility] because of increased pain in the left lower quadrant left groin area that was started about a week or 2 ago after he was working on his house, he reported that he had fallen last Wednesday, but he did not remember any injury, apparently the patient went to urgent care today and they were concerned about strangulated hernia so he was referred to the ER for evaluation, patient had a CT scan of the abdomen pelvis in the emergency department that showed evidence of what appears of possible left iliopsoas fluid collection/abscess that measures 2.3 x 3.2 x 8.3 cm intram uscular were organized suggestive of an abscess versus hematoma, which is most likely a cyst as the patient does not have any evidence of fever or chills but he had a prior history of trauma. Patient was admitted to the hospital under my service, general surgery consultation as well as infectious ease consultation along with interventional radiology consultation for possible CT guidance drainage, patient was started on IV antibiotic in the form of vancomycin as well as cefepime blood cultures were obtained. 04/29 Patient with no new complaint Pain is controlled. Mild pain comes and goes Continue with antibiotics 04/30 Abdominal pain controlled No other new symptom I told the patient about need for colonoscopy as an outpatient in 4 to 6 weeks with risk benefits explained for him extensively and he agrees 05/01: Patient is sitting up in bed in no apparent distress, he denies any chest pain, shortness of breath, he has no abdominal pain, he is able to move left lower extremity, we are awaiting interventional radiology for CT guidance drainage of the abscess of the left iliopsoas muscle, patient continues to be on vancomycin as well as cefepime, infectious disease is following along with general surgery, we will try to continue same treatment plan. Patient has no sore throat, he has no abdominal pain, nausea vomiting or diarrhea. 05/02: Patient is sitting up in bed in no apparent distress, he is feeling better, he denies any chest pain, shortness of breath, he has a better range of motion in his left lower extremity, patient has no white count, he was seen earlier by orthopedic surgery who recommended for the patient to go for MRI of the hip at this time, there is a low suspicion of what appears to be an infected fluid this is likely hematoma related to his recent fall and possibly significant degenerative changes of the left hip, patient at this time will be taken off his antibiotic, and follow-up as an outpatient with us and with orthopedic surgery for possible left total hip arthroplasty. REVIEW OF SYSTEMS: Constitutional: No documented fever, no chills, no night sweats. No weight change. No weakness, fatigue or lethargy. No daytime sleepiness. EENT: No headache. No blurred vision or double vision, no loss of vision. No loss of Hearing, no ringing in the ears, no dizziness. No nasal drainage or congestion. No epistaxis. No sore throat. Lungs: No shortness of breath, no cough, no sputum production. No wheezing. Reports dyspnea with activity. Cardiovascular: No chest pain, no lower extremity edema. No palpitations. No paroxysmal nocturnal dyspnea. No orthopnea. No lightheadedness or dizziness. No syncopal episodes. Abdominal: Reports abdominal pain. No nausea, vomiting. No diarrhea. No constipation. No bloody or tarry stools reports loss of appetite. Genitourinary: No dysuria, increased frequency, urgency. No urinary retention. Musculoskeletal: No myalgias. No muscle weakness, no gait dysfunction, no frequent falls. positive for back pain. No neck pain, positive for left leg weakness Integumentary: No wounds, no lesions. No rash or pruritus. No unusual bruising. No change in hair or nails. Neurologic: No aphasia. No facial droop. No change in mentation. No head injury. No headache. No paralysis. No paresthesia, left leg raise is limited Psychiatric: No depression. positive for anxiety. No mood swings. Endocrine: No abnormal blood sugars. No weight change. PHYSICAL EXAMINATION: General: 63-year-old male laying down in bed in no apparent distress. HEENT: Head is atraumatic, normocephalic, pupils were equal round reactive to light and recommendation, extraocular muscle movement were intact, sclera nonicteric, conjunctivae were pale, mucous membranes of the mouth are somewhat dry. Neck: Supple, no JVP, normal carotid upstroke bilaterally, no lymphadenopathy. Chest: Decreased breath sounds at the bases, few rhonchi, minimal expiratory wheezes, no chest wall tenderness, no intercostal retractions. Heart: First heart sound is normal, second heart sound is normal there is systolic ejection murmur 2/6 located in the left sternal border. Abdomen: Soft, tenderness to the left lower quadrant, nondistended, positive bowel sounds. Extremities: There is no edema no calf tenderness DP +2 bilaterally. Neurologic examination: Patient is awake alert and oriented x3, cranial nerves II-12 appear grossly intact, muscle power were 5 out of 5 in upper extremities and 5 out of 5 in bilateral lower extremities, deep tendon reflexes normal bilaterally limitation to elevate the left lower extremity due to iliopsoas hematoma versus abscess. ASSESSMENT AND PLAN: 1. Left iliopsoas intramuscular fluid collection likely hematoma doubt abscess. Patient will be taken off his antibiotic, his inflammatory markers appears to be negative. 2. Coronary artery disease status post PCI x 3 in 2011. Continue patient on aspirin 81 mg once every day, metoprolol ER 50 mg orally once every day, a torvastatin 80 mg once every day, monitor the patient's symptoms very closely, continue isosorbide mononitrate 30 mg orally once every day patient follows with cardiology on a regular basis Dr. Jimenez. 3. Hypertension and hypertensive cardiovascular disease. Continue patient on amlodipine benazepril 5/40 mg orally once every day, metoprolol XL 50 mg orally once every day, monitor the patient blood pressure very closely. 4. Mixed hyperlipidemia. Continue patient on atorvastatin 80 mg once every day monitor the patient blood panel, keep LDL 55-70. 5. Enlarged prostate. Monitor the patient for urinary retention. 6. GERD with esophagitis. Continue pantoprazole 40 mg orally once every day. 7. History of gout. Stable at this time. 8. Anxiety disorder. Continue patient on Wellbutrin 150 mg once every day as well as paroxetine 40 mg once every day. 9. Chronic THC use. Patient was advised against its use. 10. History of glaucoma. Continue Xalatan at bedtime. 11. COPD. Continue patient on albuterol HFA 2 puffs inhalation every 4 hours as needed. 12. Left renal cyst has been followed by a CT urogram on yearly basis. 13. DVT prophylaxis. Lovenox 40 mg subcutaneous every 24 hours. 14. GI prophylaxis. Continue patient on Protonix 40 mg orally once every day. 15. Will continue to follow-up with the patient. Objective - Vital Signs Vital signs: Vital Signs Temp 97.2 F L 05/03/24 07:41 Pulse 70 05/03/24 07:41 Resp 16 05/03/24 07:41 BP 162/88 05/03/24 07:41 Pulse Ox 96 05/03/24 07:41 FiO2 Intake & Output 05/02/24 05/03/24 05/03/24 18:59 06:59 18:59 Intake Total 540 Balance 540 Intake: Oral 540 Other: Voiding Method Toilet # Voids 1 - Labs CBC & Chem 7: 05/02/24 04:10 05/02/24 04:10 Labs: Abnormal Lab Results - Last 24 Hours (Table) 05/02/24 Range/Units 15:33 ESR 23 H (0-20) mm/Hr
--- NOTE | 2024-05-03 13:56 | MR ---
EXAMINATION TYPE: MR hip LT wo/w con DATE OF EXAM: 05/03/2024 1:16 PM CLINICAL INDICATION: Male, 63 years old with history of fluid collection, r/u infection, Fluid collec tion left iliopsoas muscle, evaluate for infection. COMPARISON: CT 04/28/2024 TECHNIQUE: Multiplanar multi-sequential magnetic resonance imaging of the left hip without contrast. IV Contrast: 8 mL Gadobutrol FINDINGS: Bilateral hip joint effusions which extend/tract down to the hips. Left hip demonstrates small joint effusion which extends up into the and around the psoas and iliopsoas muscle. Terminating in the pso as muscle as seen on prior CT measuring with traction 12.2 cm x 2.8 cm. Additional smaller fluid alea ection more medially and coronal imaging series 1301 image 10 measuring 40 x 17 mm. The right hip al suring 34 x 17 mm series 1301 image 10. There is severe degeneration changes of the hips with osteoph yte formation joint space narrowing with degenerative labrum. There is a degenerative phenomenon the right as well. Thin rim of enhancement is seen bilaterally involving the synovium of the hips and mary ann ng the fluid extending from the hips into the myofascial planes.Paralabral cyst noted series 801 imag e 25. Subchondral cystic change noted in the acetabulum bilaterally. Bilateral fat-containing inguinal hernias. IMPRESSION: Bilateral severe osteoarthrosis with joint effusions which extend out of the joint capsule and track along the myofascial planes. Left side is greater than right with the left extending up along the pso as muscle. [facility], , 05/03/2024 1:54 PM
[2024-05-03 14:29] VITALS: BP 131/65; PULSE 65; RESP 20; TEMP 98.4
--- NOTE | 2024-05-03 14:48 | P.DS ---
Providers Date of admission: 04/28/24 16:45 Expected date of discharge: 05/03/24 Attending physician: Shan Carrillo Consults: 04/28/24 16:30 Consult Physician Urgent Consulting Provider: Alphonso Macedo Consult Reason/Comments: Left iliopsoas abscess Do you want consulting provider notified?: Already Contacted Consult Physician Urgent Consulting Provider: López Luque Consult Reason/Comments: Left iliopsoas abscess Do you want consulting provider notified?: Yes 04/28/24 17:04 Consult Physician Routine Consulting Provider: Jose A Bateman Consult Reason/Comments: CT guided Psoas Abscess drain Do you want consulting provider notified?: Yes 05/01/24 12:46 Consult Physician Routine Consulting Provider: Sid Wray Consult Reason/Comments: degeneration left hip with fluid Do you want consulting provider notified?: Yes Primary care physician: Shan Carrillo [facility] Course: This is a 63-year-old male with a previous medical history significant for coronary artery disease status post PCI x 3 in 2011 under the care of Dr. Jimenez, hypertension and hypertensive cardiovascular disease, mixed hyperlipidemia, gout, enlarged prostate, GERD with esophagitis, glaucoma, osteoarthritis, chronic THC use, remote tobacco use and dependence, patient presented to the emergency department at [facility] because of increased pain in the left lower quadrant left groin area that was started about a week or 2 ago after he was working on his house, he reported that he had fallen last Wednesday, but he did not remember any injury, apparently the patient went to urgent care today and they were concerned about strangulated hernia so he was referred to the ER for evaluation, patient had a CT scan of the abdomen pelvis in the emergency department that showed evidence of what appears of possible left iliopsoas fluid collection/abscess that measures 2.3 x 3.2 x 8.3 cm intramuscular were organized suggestive of an abscess versus hematoma, which is most likely a cyst as the patient does not have any evidence of fever or chills but he had a prior history of trauma. Patient was admitted to the hospital under my service, general surgery consultation as well as infectious ease consultation along with interventional radiology consultation for possible CT guidance drainage, patient was started on IV antibiotic in the form of vancomycin as well as cefepime blood cultures were obtained. 04/29 Patient with no new complaint Pain is controlled. Mild pain comes and goes Continue with antibiotics 04/30 Abdominal pain controlled No other new symptom I told the patient about need for colonoscopy as an outpatient in 4 to 6 weeks with risk benefits explained for him extensively and he agrees 05/01: Patient is sitting up in bed in no apparent distress, he denies any chest pain, shortness of breath, he has no abdominal pain, he is able to move left lower extremity, we are awaiting interventional radiology for CT guidance drainage of the abscess of the left iliopsoas muscle, patient continues to be on vancomycin as well as cefepime, infectious disease is following along with general surgery, we will try to continue same treatment plan. Patient has no sore throat, he has no abdominal pain, nausea vomiting or diarrhea. 05/02: Patient is sitting up in bed in no apparent distress, he is feeling better, he denies any chest pain, shortness of breath, he has a better range of motion in his left lower extremity, patient has no white count, he was seen earlier by orthopedic surgery who recommended for the patient to go for MRI of the hip at this time, there is a low suspicion of what appears to be an infected fluid this is likely hematoma related to his recent fall and possibly significant degenerative changes of the left hip, patient at this time will be taken off his antibiotic, and follow-up as an outpatient with us and with orthopedic surgery for possible left total hip arthroplasty. 05/03: Patient is feeling better today, he has no fever no chills, he is off antibiotic, he has no more pain, likely this is hematoma and possible degenerative changes of the left hip, there is no evidence of any acute abnormalities at this point in time, patient will follow-up with orthopedic surgery as an outpatient, I feel the patient can be discharged home and follow- up with us as an outpatient in a week from now. Discharge diagnoses: 1. Left iliopsoas intramuscular fluid collection likely hematoma doubt abscess. 2. Coronary artery disease status post PCI x 3 in 2011. 3. Hypertension and hypertensive cardiovascular disease. 4. Mixed hyperlipidemia. 5. Enlarged prostate. 6. GERD with esophagitis. 7. History of gout. 8. Anxiety disorder. 9. Chronic THC use. 10. History of glaucoma. 11. COPD. 12. Left renal cyst has been followed by a CT urogram on yearly basis. Plan - Discharge Summary Discharge Rx Participant: No New Discharge Prescriptions: No Action Latanoprost/Pf [Latanoprost 0.005% Eye Drop] 1 drop BOTH EYES HS Isosorbide Mononitrate ER [Imdur] 30 mg PO DAILY buPROPion HCL [Wellbutrin SR] 150 mg PO DAILY PARoxetine HCL [Paxil] 40 mg PO DAILY Metoprolol Succinate (ER) [Toprol XL] 50 mg PO DAILY amLODIPine BESYLATE/BENAZEPRIL [amLODIPine BESYLATE/BENAZEPRIL 5-40 MG] 1 cap PO DAILY Zinc Gluconate [Zinc] 50 mg PO DAILY Vitamin B Complex 1 cap PO DAILY Ubidecarenone [Co Q-10] 300 mg PO DAILY Albuterol Sulfate [Albuterol Sulfate Hfa] 1 - 2 puff PO RT-Q4H PRN PRN Reason: Shortness Of Breath Rosuvastatin Calcium [Crestor] 40 mg PO DAILY Pantoprazole [Protonix] 40 mg PO DAILY Dapagliflozin Propanediol [Farxiga] 5 mg PO DAILY Discharge Medication List Isosorbide Mononitrate ER [Imdur] 30 mg PO DAILY 05/13/18 [History] Latanoprost/Pf [Latanoprost 0.005% Eye Drop] 1 drop BOTH EYES HS 05/13/18 [History] Metoprolol Succinate (ER) [Toprol XL] 50 mg PO DAILY 05/13/18 [History] PARoxetine HCL [Paxil] 40 mg PO DAILY 05/13/18 [History] buPROPion HCL [Wellbutrin SR] 150 mg PO DAILY 05/13/18 [History] Rosuvastatin Calcium [Crestor] 40 mg PO DAILY 01/07/21 [History] amLODIPine BESYLATE/BENAZEPRIL [amLODIPine BESYLATE/BENAZEPRIL 5-40 MG] 1 cap PO DAILY 01/07/21 [History] Albuterol Sulfate [Albuterol Sulfate Hfa] 1 - 2 puff PO RT-Q4H PRN 04/28/24 [History] Dapagliflozin Propanediol [Farxiga] 5 mg PO DAILY 04/28/24 [History] Pantoprazole [Protonix] 40 mg PO DAILY 04/28/24 [History] Ubidecarenone [Co Q-10] 300 mg PO DAILY 04/28/24 [History] Vitamin B Complex 1 cap PO DAILY 04/28/24 [History] Zinc Gluconate [Zinc] 50 mg PO DAILY 04/28/24 [History] Follow up Appointment(s)/Referral(s): Shan Carrillo MD [Primary Care Provider] - 1-2 days Sid Wray MD [Medical Doctor] - 2 Weeks
== END 2024-05-03 16:25 | disposition home or self-care (01) | DRG 605 ==
LOC: EC 13:08 → 5NMEDONC 16:45
PROVIDERS: ADMIT Internal Medicine; ATTEND Internal Medicine
DX: S70.02XA Contusion of left hip, initial encounter (principal); E11.9 Type 2 diabetes mellitus without complications; E78.2 Mixed hyperlipidemia; F12.90 Cannabis use, unspecified, uncomplicated; F41.9 Anxiety disorder, unspecified; I11.9 Hypertensive heart disease without heart failure; I25.10 Atherosclerotic heart disease of native coronary artery without angina pectoris; J44.9 Chronic obstructive pulmonary disease, unspecified; K21.00 Gastro-esophageal reflux disease with esophagitis, without bleeding; M16.12 Unilateral primary osteoarthritis, left hip; N28.1 Cyst of kidney, acquired; N40.0 Benign prostatic hyperplasia without lower urinary tract symptoms; W19.XXXA Unspecified fall, initial encounter; I25.2 Old myocardial infarction; Z95.5 Presence of coronary angioplasty implant and graft; Z79.84 Long term (current) use of oral hypoglycemic drugs; Z79.899 Other long term (current) drug therapy; Z87.891 Personal history of nicotine dependence; Z80.0 Family history of malignant neoplasm of digestive organs
CPT/HCPCS: 36415; 74177; 80053; 80202; 81001; 82150; 82565; 83605; 83690; 85025; 85610; 85652; 86140; 87040; 96365; 96366; 96375; 99285

== ENCOUNTER 2024-08-04 12:29 | Day surgery (SDC) | payer MEDICARE ==
[~2024-08-04 12:29] MED LIST changes: +HYDROmorphone 0.5 MG/0.5 ML SYRINGE IVP PRN; -LACTATED RINGERS 1,000 ML IV SCH; -LIDOCAINE 1% (10MG/ML) FOR IV START INTRADERMA PRN; +MIDAZOLAM 2 MG/2 ML VIAL IV PRN; +TRANEXAMIC 1,000 MG/100ML-NACL 1,000 MG in SALINE 1 100ML.BAG IV PRN; +TRANEXAMIC 1,000 MG/100ML-NACL 1,000 MG in SALINE 1 100ML.BAG IVPB PRN
[2024-08-04] MEDS: IV FLUID CONTINUATION 1,000 ML IV ONE (12:59)
[2024-08-04 13:37] LABS: Glucose,Whole Blood 96 mg/dL (70-110)
[2024-08-04] MEDS: DOCUSATE 100 MG CAP PO PRN (13:49)
[2024-08-04] MEDS: ONDANSETRON 4 MG/2 ML VIAL IVP PRN (13:49)
[2024-08-04] MEDS: ACETAMINOPHEN TAB 500 MG TAB PO PRN (13:49)
[2024-08-04] MEDS: FAMOTIDINE 20 MG/2 ML VIAL IVP PRN (13:49)
[2024-08-04] MEDS: oxyCODONE ER 10 MG TAB.ER.12H PO PRN (13:49)
[2024-08-04] MEDS: DEXAMETHASONE SOD PHOSPHATE 10 MG/ML 1 ML VIAL IV PRN (13:50)
[2024-08-04] MEDS: KETOROLAC 15 MG/ML 1 ML VIAL IVP PRN (13:50)
[2024-08-04] MEDS: MIDAZOLAM 2 MG/2 ML VIAL IVP ONE (14:03)
--- NOTE | 2024-08-04 14:25 | P.ANPRN ---
Procedure Note - Anesthesia - Nerve Block Performed Left Arnold Single Time Out Performed: Yes Date of Procedure: 08/04/24 Procedure Start Time: 14:02 Procedure Stop Time: 14:07 Location of Patient: PreOp Indication: Acute Post-Operative Pain, Analgesia, Requested by Surgeon Sedation Type: Sedate with meaningful contact maintained Preparation: Sterile Prep Position: Supine Catheter: None Needle Types: Pajunk Needle Gauge: 21 Ultrasound used to visualize needle placement: Yes Ultrasound used to observe medication spread: Yes Injectate: 0.5% Ropivacaine (see comment for volume) ([id number] (Resident)) Blood Aspirated: No Pain Paresthesia on Injection Noted: No Resistance on Injection: Normal Image Stored and Saved: Yes Events: Uneventful and Well Tolerated
[2024-08-04] MEDS ORDERED: HYDROmorphone (PF) 1 MG/ML ONE (15:36)
[2024-08-04] MEDS ORDERED: ROCURONIUM 10 MG/ML (5 ML VIAL) IV ONE (15:36)
[2024-08-04] MEDS ORDERED: DEXAMETHASONE SOD PHOSPHATE 4 MG/ML 1 ML VIAL ONE (15:36)
[2024-08-04] MEDS ORDERED: fentaNYL (PF) 50 MCG/ML 2 ML AMP ONE (15:36)
[2024-08-04] MEDS ORDERED: PROPOFOL 10 MG/ML 20 ML VIAL IV ONE (15:36)
[2024-08-04] MEDS ORDERED: ROPIVACAINE 5 MG/ML 30 ML VIAL ONE (15:36)
[2024-08-04] MEDS ORDERED: SUCCINYLCHOLINE CHLORIDE 200 MG/10 ML VIAL IV ONE (15:36)
[2024-08-04] MEDS ORDERED: NEOSTIGMINE 1 MG/ML 10 ML VIAL ONE (15:36)
[2024-08-04] MEDS ORDERED: GLYCOPYRROLATE 0.2 MG/ML 2 ML VIAL ONE (15:36)
[2024-08-04] MEDS ORDERED: LIDOCAINE 1% INJ 10MG/ML (20 ML MDV) ONE (15:36)
[2024-08-04] MEDS: ROPIVACAINE/EPI/CLONIDINE/KET 50 ML SYRINGE MISCELLANE PRN (16:12)
[2024-08-04] MEDS: LACTATED RINGERS 1,000 ML IV ONE (17:24)
[2024-08-04] MEDS: VANCOMYCIN 1,000 MG VIAL MISCELLANE ONE (17:40)
[2024-08-04] MEDS ORDERED: HYDROmorphone 0.5 MG/0.5 ML SYRINGE IVP PRN ×2 (17:59)
[2024-08-04] MEDS ORDERED: hydrOXYzine pamoate 25 MG CAP PO PRN (17:59)
[2024-08-04] MEDS ORDERED: NALOXONE 0.4 MG/ML 1 ML VIAL IV PRN (17:59)
--- NOTE | 2024-08-04 18:15 | XR ---
Fluoroscopy INDICATION: Pain FINDINGS: Fluoroscopy time: 29.5 seconds. Total dose area product (DAP) in uGy*m?, mGy*cm? (or similar): 1.54-5 Images obtained: 7. Images document left hip prosthesis placement IMPRESSION: 1. Documentation of fluoroscopy. [facility], , 08/04/2024 6:12 PM
--- NOTE | 2024-08-04 18:19 | P.OP ---
Date of Procedure: 08/04/24 Preoperative Diagnosis: Severe left hip osteoarthritis Postoperative Diagnosis: Same Procedure(s) Performed: Left direct anterior total hip arthroplasty Implants: 1. Bernardino Trident II Acetabular Cup, Size #50 2. Bernardino Insignia Size #5 Femoral Stem, High Offset 3. Biolox delta femoral head, 36 mm, - 5 mm neck Anesthesia: REJIA, regional Surgeon: Sid Wray Furnace Process Supervisor #1: Mark Ferguson Estimated Blood Loss (ml): 300 IV fluids (ml): 800 Pathology: none sent Condition: stable Disposition: PACU Indications for Procedure: I had a long discussion with the patient in the office on the potential risks and complications of an elective total hip replacement through a direct anterior approach. Risks discussed include, but are certainly not limited to, risks from anesthesia, superficial infection requiring local wound care or antibiotics, deep luis-prosthetic joint infection and the treatment required to eradicate infection, intraoperative fracture, postoperative periprosthetic fracture, damage to local blood vessels or nerves particularly the lateral femoral cutaneous nerve, delayed wound healing requiring local wound care or possibly surgical debridement, hip dislocation, leg length discrepancy, soft tissue irritation around the total hip implant such as iliopsoas tendinitis or trochanteric bursitis, wear and osteolysis from the implants, squeaking or audible noises, groin pain, thigh pain, heterotopic ossification, stiffness, aseptic loosening of the implants, dissatisfaction with surgical outcome, need for revision surgery, DVT, PE, swelling of the operative extremity, acute coronary event, stroke, failure to thrive, and possibly loss of life or limb. The patient understands that while these are the most common complications after an elective hip replacement there are certainly other less common complications possible. They were given ample time to ask questions regarding the potential complications of a hip replacement. Following our discussion the patient prov ided their verbal and written consent to go forward with an elective total hip replacement. Operative Findings: Severe left hip osteoarthritis with complete loss of cartilage. The patient had very stiff, nonpliable soft tissue making exposure exceedingly difficult Description of Procedure: The patient was identified in the preoperative holding area and the correct hip was marked with my initials. I reviewed the procedure and consent with the patient. All of their questions were answered. The patient was then brought back into the operating room by anesthesia. While on the [facility] anesthesia was administered by the anesthesia team. Preoperative antibiotics and tranexamic acid were also given. After the patient was under anesthesia I examined their ankles to determine their preoperative leg length discrepancy. The skin over the anterior aspect of the hip was shaved to remove hair over the site of planned incision. Both feet and ankles were padded with webril and boots for the Troy were applied. The patient was then carefully transferred onto the Troy table. A perineal post was immediately placed. The arms were placed on arm holders and were well-padded. Both boots were secured to the spars on the Troy table. The patient was positioned so that the pelvis was centered over the post. Nonsterile drapes were applied. A timeout was performed identifying the correct patient, operative extremity, and procedure. At this point fluoroscopy was brought in to take preoperative images of the pelvis and operative hip. Using the standing AP pelvis from the office as a template, a comparable image was obtained with fluoroscopy. A metallic bar was used to create a bi-ischial line for use as a reference to leg length adjustments during the procedure. Global offset was also measured on both the operative and nonoperative leg. Fluoroscopy was then brought out and a pre-scrub using a chlorhexidine scrub brush was performed. The operative limb was then prepped and draped in the standard sterile fashion. An anterior longitudinal incision was made lateral and distal to the ASIS. The skin and subcutaneous tissues were incised sharply. The underlying tensor fascia was identified and incised in its midportion. The fascia was dissected free from the underlying muscle and the muscle belly was retracted. A blunt t ipped cobra retractor was placed over the superior neck under the muscle fibers of the gluteus minimus. The deep enveloping fascia of the tensor was incised. The anterior leash of vessels were then identified and cauterized. The fascia between the rectus and the capsule was then incised and the pre-capsular fat was excised. A second Cobra was placed inferior to the neck. The interval between the rectus and iliocapsularis and the hip capsule was developed and a retractor was placed carefully over the anterior rim of the acetabulum. A T-shaped anterior capsulotomy was performed. The superior capsular leaflet was left in place in the inferior capsular flap was excised. The Cobra retractors were placed intracapsularly. We then made a femoral neck osteotomy according to preoperative and intraoperative templating and confirmed the level of the osteotomy using fluoroscopic imaging. The femoral head was removed, passed off to the back table, and sized. The superior capsular flap was excised. Retractors were placed circumferentially exposing the acetabulum. We then circumferentially debrided the acetabulum free of labrum and osteophytes. The pulvinar was removed to fully visualize the cotyloid fossa. We then sequentially reamed to achieve peripheral fit and excellent bleeding subchondral bone. The socket was thoroughly irrigated. The acetabular component was impacted into the appropriate position using fluoroscopy to guide version, inclination, and depth of insertion taking care to have a comparable image of the AP pelvis to the standing image taken in the office. An excellent press-fit was achieved and final position was confirmed using fluoroscopy. The press fit was augmented with a bony cancellus dome screw. The liner was then impacted into the socket. Attention was then turned to the femur. The remnant dorsal lateral capsule was excised. The short external rotators were visible and protected. A bone hook was used to confirm appropriate translation of the trochanter away from the acetabulum. The leg was then extended and adducted and the bone hook was used to elevate the femur for broaching. A box osteotome and blunt tipped canal sound was then utilized to gain access to the femoral canal. We then sequentially broached the femur in appropriate anteversion until excellent torsional stability was achieved. The neck cut was brought flush to the trial broach with a calcar planar. A trial neck and head were then placed onto the broach and the hip was atraumatically reduced under direct visualization. External rotation to 90 was performed to assess stability. Fluoroscopy was brought in. An AP and lateral fluoroscopic image of the proximal femur was obtained to assess position and fill of the trial broach. An AP of the pelvis was then obtained and matched to the preoperative image taken. A bi-ischial bar was then placed and measurements were taken to assess changes in length and offset. The hip was then carefully dislocated, the proximal femur was exposed, and the trial implants were removed. The wound and proximal femur was thoroughly irrigated using sterile saline and pulsatile lavage. The final femoral implant was dispensed and gently tapped into place generating an excellent press-fit. The trunnion was cleansed and the final head was tapped into place to engage the Villela taper. The acetabulum was irrigated and visualized to be free of debris. The hip was carefully reduced. Stability was checked clinically with external rotation to 90 and there was no evidence of instability. Final fluoroscopic images were taken. The wound was then thoroughly irrigated and soaked with a dilute Betadine rinse for 3 minutes. 3 L of sterile saline was irrigated through the wound using pulsatile lavage. Local anesthetic cocktail was injected into the soft tissues around the surgical field. The wound was then closed in layers. A sterile dressing was placed over the surgical incision. The drapes were taken down and the patient was carefully transferred off of the Troy table. Following removal of the boots the leg lengths felt acceptable. The patient was then taken to recovery room having tolerated the procedure well. Mark Ferguson PA-C was required as a skilled cafe assistant due to the complexity of surgery for patient positioning, draping, exposure, retraction, closure of wound and application of dressing. PLAN: The patient can weight-bear as tolerated on the operative extremity. 2 doses of postoperative antibiotics. DVT prophylaxis with aspirin 81 mg twice a day based on preoperative risk stratification. Physical therapy for gait training.
[2024-08-04 18:36] LABS: Glucose,Whole Blood 137 mg/dL (70-110)
--- NOTE | 2024-08-04 18:55 | FL ---
Fluoroscopy INDICATION: Pain FINDINGS: Fluoroscopy time: 29.5 seconds. Total dose area product (DAP) in uGy*m?, mGy*cm? (or similar): 1.54-5 Images obtained: 0. IMPRESSION: 1. Documentation of fluoroscopy. [facility], , 08/04/2024 6:52 PM
[2024-08-04] MEDS: LACTATED RINGERS 1,000 ML IV SCH (19:44)
[2024-08-04] MEDS: SODIUM CHLORIDE 0.9% 1,000 ML IV SCH (19:49)
[2024-08-04] MEDS: HYDROcodone/APAP 5-325MG 1 EACH TAB PO PRN (21:16)
[2024-08-04] MEDS: ASPIRIN 81 MG PO SCH (21:16)
[2024-08-04] MEDS: SENNOSIDES-DOCUSATE SODIUM 1 EACH TAB PO SCH (21:16)
[2024-08-05] MEDS ORDERED: ALBUTEROL NEBULIZED 2.5 MG/3 ML INHALATION PRN (05:01)
[2024-08-05] MEDS ORDERED: IPRATROPIUM-ALBUTEROL 3 ML NEB INHALATION PRN (05:54)
[2024-08-05] MEDS: PANTOPRAZOLE 40 MG TABLET PO SCH (06:34)
[2024-08-05] MEDS: ACETAMINOPHEN TAB 325 MG TAB PO PRN (06:36)
[2024-08-05] MEDS: PARoxetine 20 MG TAB PO SCH (08:06)
[2024-08-05] MEDS: FUROSEMIDE 20 MG TAB PO SCH (08:06)
[2024-08-05] MEDS: ATORVASTATIN 80 MG TAB PO SCH (08:06)
[2024-08-05] MEDS: DAPAGLIFLOZIN PROPANEDIOL 5 MG TABLET PO SCH (08:06)
[2024-08-05] MEDS: lisinopriL 20 MG TAB PO SCH (08:06)
[2024-08-05] MEDS: ZINC SULFATE 220 MG CAP PO SCH (08:07)
[2024-08-05] MEDS: buPROPion SR 150 MG TABLET.ER PO SCH (08:07)
[2024-08-05] MEDS: amLODIPine 5 MG TAB PO SCH (08:07)
[2024-08-05] MEDS: METOPROLOL SUCCINATE (ER) 50 MG TAB.ER.24H PO SCH (08:07)
[2024-08-05] MEDS: FAMOTIDINE 20 MG TAB PO SCH (08:07)
[2024-08-05] MEDS: ISOSORBIDE MONONITRATE ER 30 MG TAB.ER.24H PO SCH (08:07)
[2024-08-05] MEDS: HYDROcodone/APAP 10-325MG 1 EACH TAB PO PRN (08:07)
--- NOTE | 2024-08-05 08:18 | P.PN ---
Subjective Progress Note Date: 08/05/24 Patient was seen this morning. He was resting comfortably in bed. He states he is having pain in his left thigh as expected. He has been up to the bathroom. He denies any chest pain or shortness of breath. Objective - Vital Signs Vital signs: Vital Signs Temp 97.7 F 08/05/24 01:25 Pulse 85 08/05/24 01:25 Resp 17 08/05/24 01:25 BP 119/72 08/05/24 01:25 Pulse Ox 95 08/05/24 01:25 FiO2 Intake & Output 08/04/24 08/05/24 08/05/24 18:59 06:59 18:59 Intake Total 1250 Output Total 300 100 Balance 950 -100 Weight 85.7 kg 85.7 kg Intake: IV 1250 Output: Urine 100 Estimated Blood Loss 300 Other: # Voids 1 - Exam Patient is resting comfortably in bed. He is alert and able to answer questions. A focused exam of the left lower extremity was conducted. On inspection there is an intact dressing over the anterior aspect of the hip. There is no drainage or strikethrough. His thigh is soft and compressible. F emoral nerve function is intact. He is able to actively plantarflex and dorsiflex his ankle and his toes. - Labs Labs: Abnormal Lab Results - Last 24 Hours (Table) 08/04/24 Range/Units 18:33 POC Glucose (mg/dL) 137 H (70-110) mg/dL Assessment and Plan Assessment: Postoperative day #1 status post left direct anterior total hip replacement Multiple medical problems Plan: 1. Weightbearing as tolerated on the operative extremity. Up with assistance and a walker. 2. DVT prophylaxis with aspirin 81 mg twice a day 3. Physical therapy for gait training and mobilization 4. Leave surgical dressing in place. 5. Internal medicine for perioperative medical management 6. Disposition: The patient will likely need an additional 24 to 48 hours in the hospital for pain control and therapy. Will reassess the patient tomorrow and see how he was doing. I anticipate discharge home with home health either tomorrow or Wednesday.
--- NOTE | 2024-08-05 08:24 | P.CONS ---
History of Present Illness - Reason for Consult Consult date: 08/05/24 Medical management Requesting physician: Sid Wray - Chief Complaint Left direct anterior total hip arthroplasty - History of Present Illness HISTORY OF PRESENT ILLNESS: This is a 64-year-old male with a previous medical history significant for coronary artery disease status post PCI x 3 in 2012 under the care of Dr. Jimenez, hypertension and hypertensive cardiovascular disease, mixed hyperlipidemia, gout, enlarged prostate, GERD with esophagitis, glaucoma, osteoarthritis, chronic THC use, remote tobacco use and dependence, patient underwent left anterior direct total hip arthroplasty that was done successfully by Dr. Wray and we were asked to see the patient for postoperative medical management patient is laying in bed in no apparent distress, he is describing his pain in the left hip is 5 out of 10 he is tolerating his treatment very well, he was instructed to use incentive spirometer, he was seen in consultation by physical therapy, continue current pain management, continue albuterol as needed, follow-up with the patient very closely the plan is for the patient to be going home. REVIEW OF SYSTEMS: Constitutional: No documented fever, no chills, no night sweats. No weight change. No weakness, fatigue or lethargy. No daytime sleepiness. EENT: No headache. No blurred vision or double vision, no loss of vision. No loss of Hearing, no ringing in the ears, no dizziness. No nasal drainage or congestion. No epistaxis. No sore throat. Lungs: No shortness of breath, no cough, no sputum production. No wheezing. Reports dyspnea with activity. Cardiovascular: No chest pain, no lower extremity edema. No palpitations. No paroxysmal nocturnal dyspnea. No orthopnea. No lightheadedness or dizziness. No syncopal episodes. Abdominal: Reports no abdominal pain. No nausea, vomiting. No diarrhea. No constipation. No bloody or tarry stools reports loss of appetite. Genitourinary: No dysuria, increased frequency, urgency. No urinary retention. Musculoskeletal: No myalgias. No muscle weakness, mild gait dysfunction, no frequent falls. positive for back pain. No neck pain, positive for left hip pain. Integumentary: Left anterior hip wound is covered with dressing, no lesions. No rash or pruritus. No unusual bruising. No change in hair or nails. Neurologic: No aphasia. No facial droop. No change in mentation. No head injury. No headache. No paralysis. No paresthesia, Psychiatric: No depression. positive for anxiety. No mood swings. Endocrine: No abnormal blood sugars. No weight change. PAST MEDICAL HISTORY: Coronary artery disease status post PCI x 3 in 2011 Hypertension and hypertensive cardiovascular disease. Mixed hyperlipidemia. Idiopathic gout. Enlarged prostate. Anxiety disorder. GERD with esophagitis Glaucoma. Osteoarthritis. THC use. PAST SURGICAL HISTORY: Left heart catheterization with PCI x 3 in 2011 Laparoscopic right inguinal hernia repair 12/20/2019 Colonoscopy 03/24/2024 SOCIAL HISTORY: Patient used to smoke about a pack every day since the age of 17 and quit in June 28, 2022 currently smokes marijuana, he denies any alcohol ingestion, he denies any drug use or abuse. FAMILY HISTORY: Father at the age of 78 from alcoholism and liver failure mother at the age of 89 had a history of diabetes CVA dementia and chronic kidney disease along with hypertension patient had 3 brothers 1 from pancreatic cancer patient had 4 sisters 1 passed from overdose on speed and the other 1 are okay patient has 2 adopted children and 3 stepchildren 1 passed from ND at the age of 42 and was alcohol user. PHYSICAL EXAMINATION: General: 64-year-old male laying down in bed in no apparent distress. HEENT: Head is atraumatic, normocephalic, pupils were equal round reactive to light and recommendation, extraocular muscle movement were intact, sclera nonicteric, conjunctivae were pale, mucous membranes of the mouth are somewhat dry. Neck: Supple, no JVP, normal carotid upstroke bilaterally, no lymphadenopathy. Chest: Decreased breath sounds at the bases, few rhonchi, minimal expiratory wheezes, no chest wall tenderness, no intercostal retractions. Heart: First heart sound is normal, second heart sound is normal there is systolic ejection murmur 2/6 located in the left sternal border. Abdomen: Soft, tenderness to the left lower quadrant, nondistended, positive bowel sounds. Extremities: There is no edema no calf tenderness DP +2 bilaterally, left hip there is dressing in place with no drainage. Neurologic examination: Patient is awake alert and oriented x3, cranial nerves II-12 appear grossly intact, muscle power were 5 out of 5 in upper extremities and 5 out of 5 in bilateral lower extremities, deep tendon reflexes normal bilaterally ASSESSMENT AND PLAN: 1. Postoperative day #1 status post direct anterior left total hip arthroplasty. Patient was instructed about the usage of incentive spirometer to reduce the incidence of atelectasis and healthcare associated pneumonia, continue with current pain management, physical therapy evaluation, increase activity, resume home medication, patient is to be going home later on today if his pain is well-controlled. 2. Coronary artery disease status post PCI x 3 in 2012. Continue patient on aspirin 81 mg orally twice every day, metoprolol ER 50 mg orally once every day, atorvastatin 80 mg once every day, monitor the patient's symptoms very closely, continue isosorbide mononitrate 30 mg orally once every day patient follows with cardiology on a regular basis Dr. Jimenez. 3. Hypertension and hypertensive cardiovascular disease. Continue patient on amlodipine benazepril 5/40 mg orally once every day, metoprolol XL 50 mg orally once every day, monitor the patient blood pressure very closely. 4. Mixed hyperlipidemia. Continue patient on atorvastatin 80 mg once every day monitor the patient blood panel, keep LDL 55-70. 5. Enlarged prostate. Monitor the patient for urinary retention. 6. GERD with esophagitis. Continue pantoprazole 40 mg orally once every day. 7. History of gout. Stable at this time. 8. Anxiety disorder. Continue patient on Wellbutrin 150 mg once every day as well as paroxetine 40 mg once every day. 9. Chronic THC use. Patient was advised against its use. 10. History of glaucoma. Continue Xalatan at bedtime. 11. COPD. Continue patient on albuterol HFA 2 puffs inhalation every 4 hours as needed. 12. Left renal cyst has been followed by a CT urogram on yearly basis. 13. DVT prophylaxis. Continue aspirin 81 mg orally twice every day. 14. GI prophylaxis. Continue patient on Protonix 40 mg orally once every day. 15. Thank you for the consult we will follow the patient with you. Past Medical History Past Medical History: Diabetes Mellitus, GERD/Reflux, Hyperlipidemia, Hypertension, Myocardial Infarction (ND) Additional Past Medical History / Comment(s): ND x4 Last Myocardial Infarction Date:: 12/2023 History of Any Multi-Drug Resistant Organisms: None Reported Past Surgical History: Heart Catheterization With Stent Additional Past Surgical History / Comment(s): total of 3 cardiac stents, colonoscopy Past Anesthesia/Blood Transfusion Reactions: No Reported Reaction Additional Past Anesthesia/Blood Transfusion Reaction / Comm: no blood tx hx Date of Last Stent Placement:: december Past Psychological History: Anxiety, Depression Smoking Status: Current every day smoker Past Alcohol Use History: None Reported Additional Past Alcohol Use History / Comment(s): quit 2021 Past Drug Use History: Marijuana Additional Drug Use History / Comment(s): patient uses marijuana daily refrain 24 hours prior to procedure - Past Family History Father Family Medical History: No Reported History Medications and Allergies Home Medications Medication Instructions Recorded Confirmed Type Isosorbide Mononitrate ER [Imdur] 30 mg PO DAILY 05/13/18 08/04/24 History Latanoprost/Pf [Latanoprost 0.005% 1 drop BOTH EYES HS 05/13/18 08/04/24 History Eye Drop] Metoprolol Succinate (ER) [Toprol 50 mg PO DAILY 05/13/18 08/04/24 History XL] PARoxetine HCL [Paxil] 40 mg PO DAILY 05/13/18 08/04/24 History buPROPion HCL [Wellbutrin SR] 150 mg PO DAILY 05/13/18 08/04/24 History Rosuvastatin Calcium [Crestor] 40 mg PO DAILY 01/07/21 08/04/24 History amLODIPine BESYLATE/BENAZEPRIL 1 cap PO DAILY 01/07/21 08/04/24 History [amLODIPine BESYLATE/BENAZEPRIL 5-40 MG] Albuterol Sulfate [Albuterol 1 - 2 puff PO RT-Q4H PRN 04/28/24 08/04/24 History Sulfate Hfa] Dapagliflozin Propanediol [Farxiga] 5 mg PO DAILY 04/28/24 08/04/24 History Pantoprazole [Protonix] 40 mg PO DAILY 04/28/24 08/04/24 History Ubidecarenone [Co Q-10] 300 mg PO DAILY 04/28/24 08/04/24 History Vitamin B Complex 1 cap PO DAILY 04/28/24 08/04/24 History Zinc Gluconate [Zinc] 50 mg PO DAILY 04/28/24 08/04/24 History Aspirin 81 mg PO DAILY tab 05/03/24 08/04/24 Rx Furosemide [Lasix] 20 mg PO DAILY 08/01/24 08/04/24 History Allergies Allergy/AdvReac Type Severity Reaction Status Date / Time niacin Allergy Itching Verified 08/04/24 13:12 [From Niaspan Extended-Release] Physical Exam Vitals: Vital Signs Temp Pulse Pulse Pulse Resp BP BP 08/05/24 01:25 97.7 F 85 17 119/72 08/04/24 21:19 81 113/72 08/04/24 21:04 98 110/68 08/04/24 21:01 97.9 F 87 16 107/73 08/04/24 20:49 87 107/73 08/04/24 20:35 79 104/66 08/04/24 20:20 79 110/68 08/04/24 20:04 67 111/64 08/04/24 19:49 98.3 F 86 18 123/83 08/04/24 19:19 82 17 143/74 08/04/24 19:04 90 18 132/80 08/04/24 18:49 90 16 149/90 08/04/24 18:34 83 15 137/75 08/04/24 18:19 98 F 87 16 166/84 08/04/24 14:13 75 16 138/68 08/04/24 13:15 98.3 F 70 16 119/81 Pulse Ox 08/05/24 01:25 95 08/04/24 21:19 08/04/24 21:04 08/04/24 21:01 95 08/04/24 20:49 08/04/24 20:35 08/04/24 20:20 08/04/24 20:04 08/04/24 19:49 97 08/04/24 19:19 98 08/04/24 19:04 98 08/04/24 18:49 92 L 08/04/24 18:34 97 08/04/24 18:19 99 08/04/24 14:13 96 08/04/24 13:15 94 L Intake and Output 08/04/24 08/04/24 08/05/24 14:59 22:59 06:59 Intake Total 400 850 Output Total 300 Balance 400 550 Intake: IV 400 850 Output: Estimated Blood Loss 300 Other: Weight 85.7 kg 85.7 kg Results Labs: Abnormal Lab Results - Last 24 Hours (Table) 08/04/24 Range/Units 18:33 POC Glucose (mg/dL) 137 H (70-110) mg/dL
[2024-08-05] MEDS ORDERED: NON FORMULARY DRUG (Ubidecarenone [Co Q-10] 300 MG Capsule) PO SCH (09:00)
[2024-08-05] MEDS ORDERED: NON FORMULARY DRUG (Vitamin B Complex [Vitamin B Complex] 1 EACH Capsule) PO SCH (09:00)
[2024-08-05 10:08] LABS: Basophils # (A) 0.02 X 10*3/uL (0.00-0.10); Basophils % (A) 0.1 %; Eosinophils # (A) 0.01 X 10*3/uL (0.04-0.35); Eosinophils % (A) 0.1 %; HCT 41.4 % (39.6-50.0); HGB 13.2 g/dL (13.0-17.0); Lymphocytes # (A) 0.86 X 10*3/uL (0.90-5.00); MCH 29.2 pg (27.0-32.0); MCHC 31.9 g/dL (32.0-37.0); MCV 91.6 FL (80.0-97.0); Mean Platelet Volume 10.6 FL (9.5-12.2); Monocytes # (A) 0.75 X 10*3/uL (0.20-1.00); Monocytes % (A) 5.3 %; NRBC Per 100 WBC 0 X 10*3/uL (0.00-0.01); Neutrophils # (A) 12.52 X 10*3/uL (1.80-7.70); Neutrophils % (A) 87.7 %; Platelet Count 199 X 10*3/uL (140-440); RBC 4.52 X 10*6/uL (4.40-5.60); RDW 14.6 % (11.5-14.5); WBC 14.28 X 10*3/uL (4.50-10.00)
[2024-08-05 10:11] LABS: ALT 26 U/L (10-49); AST 43 U/L (14-35); Albumin 3.6 g/dL (3.8-4.9); Alkaline Phosphatase 51 U/L (41-126); BUN/Creat Ratio 20.78 Ratio (12.00-20.00); Blood Urea Nitrogen 18.7 mg/dL (9.0-27.0); Calcium 8.4 mg/dL (8.7-10.3); Carbon Dioxide 22.2 mmol/L (21.6-31.8); Chloride 108 mmol/L (96-109); Glucose 123 mg/dL (70-110); Potassium 4.4 mmol/L (3.5-5.5); Sodium 141 mmol/L (135-145); Total Bilirubin 0.3 mg/dL (0.3-1.2); Total Protein 5.6 g/dL (6.2-8.2)
[2024-08-05] MEDS: LATANOPROST 0.005% OPHTH DROPS 2.5 ML BTL BOTH EYES SCH (20:04)
[2024-08-05] MEDS: HYDROmorphone 0.5 MG/0.5 ML SYRINGE IVP PRN (22:23)
[2024-08-06] MEDS: polyethylene glycoL 3350 17 GM POWD.PACK PO SCH (09:22)
[2024-08-06] MEDS: TAMSULOSIN 0.4 MG CAP.ER.24H PO SCH (09:23)
--- NOTE | 2024-08-06 09:23 | P.PN ---
Subjective Progress Note Date: 08/06/24 HISTORY OF PRESENT ILLNESS: This is a 64-year-old male with a previous medical history significant for coronary artery disease status post PCI x 3 in 2012 under the care of Dr. Jimenez, hypertension and hypertensive cardiovascular disease, mixed hyperlipidemia, gout, enlarged prostate, GERD with esophagitis, glaucoma, osteoarthritis, chronic THC use, remote tobacco use and dependence, patient u nderwent left anterior direct total hip arthroplasty that was done successfully by Dr. Wray and we were asked to see the patient for postoperative medical management patient is laying in bed in no apparent distress, he is describing his pain in the left hip is 5 out of 10 he is tolerating his treatment very well, he was instructed to use incentive spirometer, he was seen in consultation by physical therapy, continue current pain management, continue albuterol as needed, follow-up with the patient very closely the plan is for the patient to be going home. 08/06: Patient sitting up in bed in minimal distress, he continues to rate his pain of 5-6 out of 10 in the left hip, discussed with the orthopedic surgery that the patient had significant contracture and significant release for him to be able to to have a separate basement, anticipated the patient to be staying in the hospital for another 24 hours, hopefully he will be discharged home in the next 24 hours, continue current pain management, continue physical therapy, continue to monitor the urine output, continue patient on current treatment plan. Patient also was instructed about the use of incentive spirometer, continue current bowel care as well. REVIEW OF SYSTEMS: Constitutional: No documented fever, no chills, no night sweats. No weight change. No weakness, fatigue or lethargy. No daytime sleepiness. EENT: No headache. No blurred vision or double vision, no loss of vision. No loss of Hearing, no ringing in the ears, no dizziness. No nasal drainage or congestion. No epistaxis. No sore throat. Lungs: No shortness of breath, no cough, no sputum production. No wheezing. Reports dyspnea with activity. Cardiovascular: No chest pain, no lower extremity edema. No palpitations. No paroxysmal nocturnal dyspnea. No orthopnea. No lightheadedness or dizziness. No syncopal episodes. Abdominal: Reports no abdominal pain. No nausea, vomiting. No diarrhea. No constipation. No bloody or tarry stools reports loss of appetite. Genitourinary: No dysuria, increased frequency, urgency. No urinary retention. Musculoskeletal: No myalgias. No muscle weakness, mild gait dysfunction, no frequent falls. positive for back pain. No neck pain, positive for left hip pain. Integumentary: Left anterior hip wound is covered with dressing, no lesions. No rash or pruritus. No unusual bruising. No change in hair or nails. Neurologic: No aphasia. No facial droop. No change in mentation. No head injury. No headache. No paralysis. No paresthesia, Psychiatric: No depression. positive for anxiety. No mood swings. Endocrine: No abnormal blood sugars. No weight change. PHYSICAL EXAMINATION: General: 64-year-old male laying down in bed in no apparent distress. HEENT: Head is atraumatic, normocephalic, pupils were equal round reactive to light and recommendation, extraocular muscle movement were intact, sclera nonicteric, conjunctivae were pale, mucous membranes of the mouth are somewhat dry. Neck: Supple, no JVP, normal carotid upstroke bilaterally, no lymphadenopathy. Chest: Decreased breath sounds at the bases, few rhonchi, minimal expiratory wheezes, no chest wall tenderness, no intercostal retractions. Heart: First heart sound is normal, second heart sound is normal there is s ystolic ejection murmur 2/6 located in the left sternal border. Abdomen: Soft, tenderness to the left lower quadrant, nondistended, positive bowel sounds. Extremities: There is no edema no calf tenderness DP +2 bilaterally, left hip there is dressing in place with no drainage. Neurologic examination: Patient is awake alert and oriented x3, cranial nerves II-12 appear grossly intact, muscle power were 5 out of 5 in upper extremities and 5 out of 5 in bilateral lower extremities, deep tendon reflexes normal bilaterally ASSESSMENT AND PLAN: 1. Postoperative day # 2 status post direct anterior left total hip arthroplasty. Patient was instructed about the usage of incentive spirometer to reduce the incidence of atelectasis and healthcare associated pneumonia, continue with current pain management, physical therapy evaluation, increase activity, resume home medication, patient is to be going home hopefully in the next 24 hours. 2. Coronary artery disease status post PCI x 3 in 2011. Continue patient on aspirin 81 mg orally twice every day, metoprolol ER 50 mg orally once every day, atorvastatin 80 mg once every day, monitor the patient's symptoms very closely, continue isosorbide mononitrate 30 mg orally once every day patient follows with cardiology on a regular basis Dr. Jimenez. 3. Hypertension and hypertensive cardiovascular disease. Continue patient on amlodipine benazepril 5/40 mg orally once every day, metoprolol XL 50 mg orally once every day, monitor the patient blood pressure very closely. 4. Mixed hyperlipidemia. Continue patient on atorvastatin 80 mg once every day monitor the patient blood panel, keep LDL 55-70. 5. Enlarged prostate. Monitor the patient for urinary retention. Continue to BladderScan the patient, straight cath as needed. Continue patient on Flomax 0.4 mg orally once every day. 6. GERD with esophagitis. Continue pantoprazole 40 mg orally once every day. 7. History of gout. Stable at this time. 8. Anxiety disorder. Continue patient on Wellbutrin 150 mg once every day as well as paroxetine 40 mg once every day. 9. Chronic THC use. Patient was advised against its use. 10. History of glaucoma. Continue Xalatan at bedtime. 11. COPD. Continue patient on albuterol HFA 2 puffs inhalation every 4 hours as needed. 12. Left renal cyst has been followed by a CT urogram on yearly basis. 13. DVT prophylaxis. Continue aspirin 81 mg orally twice every day. 14. GI prophylaxis. Continue patient on Protonix 40 mg orally once every day. 15. Hopefully home tomorrow morning. Objective - Vital Signs Vital signs: Vital Signs Temp 98.2 F 08/06/24 07:05 Pulse 83 08/06/24 07:05 Resp 17 08/06/24 07:05 BP 151/91 08/06/24 07:05 Pulse Ox 93 L 08/06/24 07:05 FiO2 Intake & Output 08/05/24 08/06/24 08/06/24 18:59 06:59 18:59 Output Total 240 400 Balance -240 -400 Output: Urine 240 400 Other: Voiding Method Toilet Urinal # Voids 1 1 - Labs CBC & Chem 7: 08/05/24 03:52 08/05/24 06:43 Labs: Abnormal Lab Results - Last 24 Hours (Table) 08/05/24 08/05/24 Range/Units 03:52 06:43 WBC 14.28 H (4.50-10.00) X 10*3/uL MCHC 31.9 L (32.0-37.0) g/dL RDW 14.6 H (11.5-14.5) % Immature Gran # 0.12 H (0.00-0.04) X 10*3/uL Neutrophils # 12.52 H (1.80-7.70) X 10*3/uL Lymphocytes # 0.86 L (0.90-5.00) X 10*3/uL Eosinophils # 0.01 L (0.04-0.35) X 10*3/uL BUN/Creatinine Ratio 20.78 H (12.00-20.00) Ratio Glucose 123 H (70-110) mg/dL Calcium 8.4 L (8.7-10.3) mg/dL AST 43 H (14-35) U/L Total Protein 5.6 L (6.2-8.2) g/dL Albumin 3.6 L (3.8-4.9) g/dL
--- NOTE | 2024-08-06 11:23 | P.PN ---
Subjective Progress Note Date: 08/06/24 Principal diagnosis: Osteoarthritis left hip. Status post total left hip arthroplasty with direct anterior approach. This is a 64-year-old male who is status post total left hip arthroplasty with direct anterior approach. Today is postop day #2. He is doing well but states that he is having issues with pain management. He is up ambulating on his own to the chair. He has no new complaints or concerns aside from pain and some local swelling. Objective - Vital Signs Vital signs: Vital Signs Temp 98.2 F 08/06/24 07:05 Pulse 83 08/06/24 07:05 Resp 17 08/06/24 07:05 BP 151/91 08/06/24 07:05 Pulse Ox 93 L 08/06/24 07:05 FiO2 Intake & Output 08/05/24 08/06/24 08/06/24 18:59 06:59 18:59 Output Total 240 400 Balance -240 -400 Output: Urine 240 400 Other: Voiding Method Toilet Urinal # Voids 1 1 - Exam This is a pleasant 64-year-old male in no acute distress. He is alert and oriented x 3. Exam of the left hip reveals that his dressing is clean, dry and intact. There is mild swelling to the hip and thigh. He is able to lift his leg up off the chair independently with some weakness. He has full foot and ankle motion without difficulty or pain. Neurovascular status to the lower extremity is intact. - Labs CBC & Chem 7: 08/05/24 03:52 08/05/24 06:43 Assessment and Plan (1) Status post total replacement of left hip Current Visit: Yes Status: Acute Code(s): Z96.642 - PRESENCE OF LEFT ARTIFICIAL HIP JOINT SNOMED Code(s): 190697885169 (2) Primary localized osteoarthritis of left hip Current Visit: Yes Status: Acute Code(s): M16.12 - UNILATERAL PRIMARY OSTEOARTHRITIS, LEFT HIP SNOMED Code(s): 146855796205112 Plan: The clinical findings are discussed with the patient. He will stay 1 more night and work on pain management. Anticipate discharge to home tomorrow.
[2024-08-07 08:03] VITALS: BP 123/85; RESP 18; TEMP 98.7
--- NOTE | 2024-08-07 08:03 | P.DS ---
Providers Attending physician: Sid Wray Consults: 08/04/24 17:59 Consult Physician Routine Consulting Provider: Shan Carrillo Consult Reason/Comments: Post op medical management Do you want consulting provider notified?: Yes Primary care physician: Shan Carrillo [facility] Course: This is a 64-year-old patient, with past medical history of severe left hip osteoarthritis, who failed nonsurgical conservative management. On 08/04/2024 the patient presented to the [facility] pre-op department for scheduled direct anterior total hip arthroplasty with Dr. Wray. The patient tolerated the procedure well. The patient was transferred to the orthopedic floor. The patient continued to be painful and needed IV pain medicine and stayed through the weekend. The patient had no acute events over night. The patient's pain has been well-controlled with oral pain medicine. Patient was examined at bedside this morning. Patient is resting comfortably in bed. No apparent distress. They are awake, alert and able to answer questions. On inspection the surgical hip dressing is intact, there is no drainage or strikethrough. The skin surrounding the dressing is free of erythema. There is surrounding ecchymosis as expected. There is mild swelling in the operative thigh. Operative femoral nerve function is intact. The operative calf is soft to compression. The patient is able to actively plantarflex and dorsiflex their operative ankle and toes. Start form completed and placed in the patient's chart. Patient worked with physical therapy and it was determined they could discharge home. Plan to discharge home today. Plan follow up in two weeks in our office. Please see med rec for a list of accurate medications. Assessment: Status post left total hip arthroplasty for severe left hip osteoarthritis 08/04/2024 Left hip osteoarthritis Left hip pain Plan - Discharge Summary Discharge Rx Participant: Yes New Discharge Prescriptions: New HYDROcodone/APAP 5-325MG [Rio 5] 1 - 2 each PO Q6HR PRN #48 tab PRN Reason: Pain Aspirin 81 mg PO BID #60 tab Sennosides-Docusate Sodium [Senokot-S] 1 tab PO BID PRN #60 tablet PRN Reason: Constipation No Action Latanoprost/Pf [Latanoprost 0.005% Eye Drop] 1 drop BOTH EYES HS Isosorbide Mononitrate ER [Imdur] 30 mg PO DAILY buPROPion HCL [Wellbutrin SR] 150 mg PO DAILY PARoxetine HCL [Paxil] 40 mg PO DAILY Metoprolol Succinate (ER) [Toprol XL] 50 mg PO DAILY amLODIPine BESYLATE/BENAZEPRIL [amLODIPine BESYLATE/BENAZEPRIL 5-40 MG] 1 cap PO DAILY Zinc Gluconate [Zinc] 50 mg PO DAILY Vitamin B Complex 1 cap PO DAILY Ubidecarenone [Co Q-10] 300 mg PO DAILY Albuterol Sulfate [Albuterol Sulfate Hfa] 1 - 2 puff PO RT-Q4H PRN PRN Reason: Shortness Of Breath Furosemide [Lasix] 20 mg PO DAILY Rosuvastatin Calcium [Crestor] 40 mg PO DAILY Pantoprazole [Protonix] 40 mg PO DAILY Dapagliflozin Propanediol [Farxiga] 5 mg PO DAILY Aspirin 81 mg PO DAILY tab Discharge Medication List Isosorbide Mononitrate ER [Imdur] 30 mg PO DAILY 05/13/18 [History] Latanoprost/Pf [Latanoprost 0.005% Eye Drop] 1 drop BOTH EYES HS 05/13/18 [History] Metoprolol Succinate (ER) [Toprol XL] 50 mg PO DAILY 05/13/18 [History] PARoxetine HCL [Paxil] 40 mg PO DAILY 05/13/18 [History] buPROPion HCL [Wellbutrin SR] 150 mg PO DAILY 05/13/18 [History] Rosuvastatin Calcium [Crestor] 40 mg PO DAILY 01/07/21 [History] amLODIPine BESYLATE/BENAZEPRIL [amLODIPine BESYLATE/BENAZEPRIL 5-40 MG] 1 cap PO DAILY 01/07/21 [History] Albuterol Sulfate [Albuterol Sulfate Hfa] 1 - 2 puff PO RT-Q4H PRN 04/28/24 [History] Dapagliflozin Propanediol [Farxiga] 5 mg PO DAILY 04/28/24 [History] Pantoprazole [Protonix] 40 mg PO DAILY 04/28/24 [History] Ubidecarenone [Co Q-10] 300 mg PO DAILY 04/28/24 [History] Vitamin B Complex 1 cap PO DAILY 04/28/24 [History] Zinc Gluconate [Zinc] 50 mg PO DAILY 04/28/24 [History] Aspirin 81 mg PO DAILY tab 05/03/24 [Rx] Furosemide [Lasix] 20 mg PO DAILY 08/01/24 [History] Aspirin 81 mg PO BID #60 tab 08/07/24 [Rx] HYDROcodone/APAP 5-325MG [Rio 5] 1 - 2 each PO Q6HR PRN #48 tab 08/07/24 [Rx] Sennosides-Docusate Sodium [Senokot-S] 1 tab PO BID PRN #60 tablet 08/07/24 [Rx] Follow up Appointment(s)/Referral(s): Sid Wray MD [Medical Doctor] - 2 Weeks Activity/Diet/Wound Care/Special Instructions: 1. Weight-bear as tolerated on your operative extremity unless instructed other saba. Use a walker or other assistive device to ambulate. 2. Leave surgical dressing in place. If your dressing becomes saturated with blood, there is drainage, or the dressing becomes loose please contact the office. 3. It is okay to shower with your surgical dressing, but do not submerge in water (no hot tubs, bath's, swimming etc.) 4. Take your blood clot prevention medication as prescribed (aspirin, Eliquis, Xarelto, and Plavix are commonly prescribed medications for blood clot prevention) 5. While taking Rio or Percocet for pain take a stool softener (Ex: Colace) and drink lots of water. 6. Keep all follow-up appointments as scheduled. You will usually be seen in 1-2 weeks following surgery. 7. Please contact the office with any questions or concerns [phone] Discharge Disposition: HOME WITH HOME HEALTH SERVICES
[2024-08-07 08:41] LABS: Basophils # (A) 0.03 X 10*3/uL (0.00-0.10); Basophils % (A) 0.4 %; Eosinophils % (A) 1.2 %; HCT 39.7 % (39.6-50.0); HGB 12.5 g/dL (13.0-17.0); Lymphocytes # (A) 1.83 X 10*3/uL (0.90-5.00); Lymphocytes % (A) 21.4 %; MCH 29.1 pg (27.0-32.0); MCHC 31.5 g/dL (32.0-37.0); MCV 92.5 FL (80.0-97.0); Mean Platelet Volume 11.2 FL (9.5-12.2); Monocytes # (A) 0.87 X 10*3/uL (0.20-1.00); Monocytes % (A) 10.2 %; NRBC Per 100 WBC 0 X 10*3/uL (0.00-0.01); Neutrophils # (A) 5.69 X 10*3/uL (1.80-7.70); Neutrophils % (A) 66.2 %; Platelet Count 167 X 10*3/uL (140-440); RBC 4.29 X 10*6/uL (4.40-5.60); RDW 14.8 % (11.5-14.5); WBC 8.57 X 10*3/uL (4.50-10.00)
[2024-08-07 08:51] LABS: Blood Urea Nitrogen 14.4 mg/dL (9.0-27.0); Calcium 8.8 mg/dL (8.7-10.3); Carbon Dioxide 28.5 mmol/L (21.6-31.8); Chloride 105 mmol/L (96-109); Glucose 105 mg/dL (70-110); Potassium 4.3 mmol/L (3.5-5.5); Sodium 143 mmol/L (135-145)
[2024-08-07 09:37] VITALS: PULSE 83
== END 2024-08-07 11:26 | disposition home health service (06) ==
LOC: OR 12:29 → 4SSUR 18:19 → OR 08-07 11:26
PROVIDERS: ATTEND Orthopaedic Surgery
DX: M16.12 Unilateral primary osteoarthritis, left hip (principal); E11.9 Type 2 diabetes mellitus without complications; E78.2 Mixed hyperlipidemia; F32.A Depression, unspecified; F41.9 Anxiety disorder, unspecified; G89.18 Other acute postprocedural pain; H40.9 Unspecified glaucoma; I11.9 Hypertensive heart disease without heart failure; I25.10 Atherosclerotic heart disease of native coronary artery without angina pectoris; I25.2 Old myocardial infarction; J44.9 Chronic obstructive pulmonary disease, unspecified; K21.00 Gastro-esophageal reflux disease with esophagitis, without bleeding; N40.0 Benign prostatic hyperplasia without lower urinary tract symptoms; M10.9 Gout, unspecified; F12.90 Cannabis use, unspecified, uncomplicated; F17.200 Nicotine dependence, unspecified, uncomplicated; Z79.82 Long term (current) use of aspirin; Z79.84 Long term (current) use of oral hypoglycemic drugs; Z79.899 Other long term (current) drug therapy; Z95.5 Presence of coronary angioplasty implant and graft; Z96.642 Presence of left artificial hip joint
CPT/HCPCS: 97162; 97166; 64999; 80053; 80048; 85025 ×2; 73501; 27130; C1776; J2250; J3370; J1100; S0106 ×3; J0690 ×2; J2405; J3490; J1885; J1171 ×2

== ENCOUNTER → 2024-12-12 | Outpatient (CLI) | payer MEDICARE ==
[2024-12-12 14:33] LABS: INR 1.0 (<1.2); Partial Thromboplastin Time 26.5 sec (22.0-30.0); Prothrombin Time 10.8 sec (10.0-12.5)
[2024-12-12 18:34] LABS: HCT 40.8 % (39.6-50.0); HGB 13.1 g/dL (13.0-17.0); MCH 27.2 pg (27.0-32.0); MCHC 32.1 g/dL (32.0-37.0); MCV 84.8 FL (80.0-97.0); NRBC Per 100 WBC 0 X 10*3/uL (0.00-0.01); Platelet Count 231 X 10*3/uL (140-440); RBC 4.81 X 10*6/uL (4.40-5.60); RDW 19.2 % (11.5-14.5); WBC 6.60 X 10*3/uL (4.50-10.00)
[2024-12-12 19:20] LABS: ALT 15 U/L (10-49); AST 17 U/L (14-35); Albumin 4.1 g/dL (3.8-4.9); Albumin/Globulin Ratio 1.78 Ratio (1.60-3.17); Alkaline Phosphatase 55 U/L (41-126); Anion Gap 12.20 mmol/L (4.00-12.00); BUN/Creat Ratio 18.90 Ratio (12.00-20.00); Blood Urea Nitrogen 18.9 mg/dL (9.0-27.0); Calcium 8.9 mg/dL (8.7-10.3); Carbon Dioxide 21.8 mmol/L (21.6-31.8); Chloride 110 mmol/L (96-109); Globulin 2.3 g/dL (1.6-3.3); Glucose 103 mg/dL (70-110); Potassium 4.1 mmol/L (3.5-5.5); Sodium 144 mmol/L (135-145); Total Protein 6.4 g/dL (6.2-8.2)
== END | disposition home or self-care (01) ==
LOC: LABPAT 13:49
PROVIDERS: ATTEND Orthopaedic Surgery Orthopaedic Surgery of the Spine
DX: Z01.812 Encounter for preprocedural laboratory examination (principal); M16.11 Unilateral primary osteoarthritis, right hip; Z22.322 Carrier or suspected carrier of Methicillin resistant Staphylococcus aureus
CPT/HCPCS: 80053; 83036; 85027; 85610; 85730; 86850; 86900; 86901; 87070

== ENCOUNTER 2024-12-22 05:44 | Day surgery (SDC) | payer MEDICARE ==
[2024-12-22] MEDS ORDERED: KETOROLAC 15 MG/ML 1 ML VIAL IVP PRN (06:00)
[2024-12-22] MEDS ORDERED: TRANEXAMIC 1,000 MG/100ML-NACL 1,000 MG in SALINE 1 100ML.BAG IVPB PRN (06:00)
[2024-12-22] MEDS ORDERED: TRANEXAMIC 1,000 MG/100ML-NACL 1,000 MG in SALINE 1 100ML.BAG IV PRN (06:00)
[2024-12-22] MEDS: IV FLUID CONTINUATION 1,000 ML IV ONE (06:33)
[2024-12-22 06:34] LABS: Glucose,Whole Blood 111 mg/dL (70-110)
[2024-12-22] MEDS: LACTATED RINGERS 1,000 ML IV SCH (06:34)
[2024-12-22] MEDS: DOCUSATE 100 MG CAP PO PRN (06:44)
[2024-12-22] MEDS: ACETAMINOPHEN TAB 500 MG TAB PO PRN (06:44)
[2024-12-22] MEDS: oxyCODONE ER 10 MG TAB.ER.12H PO PRN (06:45)
[2024-12-22] MEDS: ONDANSETRON 4 MG/2 ML VIAL IVP PRN (06:45)
[2024-12-22] MEDS: DEXAMETHASONE SOD PHOSPHATE 10 MG/ML 1 ML VIAL IV PRN (06:46)
[2024-12-22] MEDS: fentaNYL (PF) 50 MCG/ML 2 ML AMP IVP PRN (06:50)
[2024-12-22] MEDS: MIDAZOLAM 2 MG/2 ML VIAL IV PRN (06:50)
[2024-12-22] MEDS: FAMOTIDINE 20 MG/2 ML VIAL IVP PRN (07:09)
--- NOTE | 2024-12-22 07:14 | P.ANPRN ---
Procedure Note - Anesthesia - Nerve Block Performed Right Arnold Single Time Out Performed: Yes Date of Procedure: 12/22/24 Procedure Start Time: 06:49 Procedure Stop Time: 06:55 Location of Patient: PreOp Indication: Acute Post-Operative Pain, Requested by Surgeon Sedation Type: Sedate with meaningful contact maintained Preparation: Sterile Prep Position: Supine Needle Types: Pajunk Needle Gauge: 21 Ultrasound used to visualize needle placement: Yes Ultrasound used to observe medication spread: Yes Injectate: 0.5% Ropivacaine (see comment for volume) (30 mL +4 mg dexamethasone) Blood Aspirated: No Pain Paresthesia on Injection Noted: No Resistance on Injection: Normal Image Stored and Saved: Yes Events: Uneventful and Well Tolerated
[2024-12-22] MEDS ORDERED: KETAMINE HCL IN 0.9 % NACL 50 MG/5 ML SYRINGE ONE (07:27)
[2024-12-22] MEDS ORDERED: SUCCINYLCHOLINE CHLORIDE 200 MG/10 ML VIAL IV ONE (07:27)
[2024-12-22] MEDS ORDERED: ROCURONIUM 10 MG/ML (5 ML VIAL) IV ONE (07:27)
[2024-12-22] MEDS ORDERED: MIDAZOLAM 2 MG/2 ML VIAL ONE (07:27)
[2024-12-22] MEDS ORDERED: NEOSTIGMINE 1 MG/ML 10 ML VIAL ONE (07:27)
[2024-12-22] MEDS ORDERED: LIDOCAINE 1% INJ 10MG/ML (20 ML MDV) ONE (07:27)
[2024-12-22] MEDS ORDERED: ROPIVACAINE 5 MG/ML 30 ML VIAL ONE (07:27)
[2024-12-22] MEDS ORDERED: GLYCOPYRROLATE 0.2 MG/ML 2 ML VIAL ONE (07:27)
[2024-12-22] MEDS ORDERED: ALBUTEROL HFA INHALER INHALATION ONE (07:27)
[2024-12-22] MEDS ORDERED: PROPOFOL 10 MG/ML 20 ML VIAL IV ONE (07:27)
[2024-12-22] MEDS ORDERED: DEXAMETHASONE SOD PHOSPHATE 4 MG/ML 1 ML VIAL ONE (07:27)
[2024-12-22] MEDS ORDERED: fentaNYL (PF) 50 MCG/ML 2 ML AMP ONE (07:27)
[2024-12-22] MEDS: ROPIVACAINE/EPI/CLONIDINE/KET 50 ML SYRINGE MISCELLANE PRN (08:04)
[2024-12-22] MEDS: LACTATED RINGERS 1,000 ML IV ONE (09:13)
[2024-12-22] MEDS ORDERED: ONDANSETRON 4 MG/2 ML VIAL IVP PRN (09:27)
[2024-12-22] MEDS ORDERED: NALOXONE 0.4 MG/ML 1 ML VIAL IV PRN (09:27)
[2024-12-22] MEDS ORDERED: HYDROcodone/APAP 5-325MG 1 EACH TAB PO PRN (09:27)
[2024-12-22] MEDS ORDERED: HYDROmorphone 0.5 MG/0.5 ML SYRINGE IVP PRN (09:27)
[2024-12-22] MEDS ORDERED: MAGNESIUM HYDROXIDE 2,400 MG/30 ML CUP PO PRN (09:27)
[2024-12-22] MEDS ORDERED: diazePAM 5 MG TAB PO PRN ×2 (09:27)
[2024-12-22] MEDS ORDERED: hydrOXYzine HCL 25 MG TAB PO PRN (09:27)
[2024-12-22] MEDS ORDERED: HYDROmorphone 1 MG/ML 1 ML SYRINGE IVP PRN (09:27)
--- NOTE | 2024-12-22 09:27 | P.OP ---
Date of Procedure: 12/22/24 Preoperative Diagnosis: Severe right hip osteoarthritis Postoperative Diagnosis: Same Procedure(s) Performed: Right direct anterior total hip arthroplasty Implants: 1. Lucas Trident II Acetabular Cup, Size #50 2. Bernardino Insignia Size # 5 Femoral Stem, High Offset 3. Biolox delta femoral head, 36 mm, -5 mm neck Anesthesia: NAJMA, regional Surgeon: Sid Wray Classification Control Clerk #1: Mark Ferguson Estimated Blood Loss (ml): 200 IV fluids (ml): 800 Pathology: none sent Condition: stable Disposition: PACU Indications for Procedure: I had a long discussion with the patient in the office on the potential risks and complications of an elective total hip replacement through a direct anterior approach. Risks discussed include, but are certainly not limited to, risks from anesthesia, superficial infection requiring local wound care or antibiotics, deep luis-prosthetic joint infection and the treatment required to eradicate infection, intraoperative fracture, postoperative periprosthetic fracture, damage to local blood vessels or nerves particularly the lateral femoral cutaneous nerve, delayed wound healing requiring local wound care or possibly surgical debridement, hip dislocation, leg length discrepancy, soft tissue irritation around the total hip implant such as iliopsoas tendinitis or trochanteric bursitis, wear and osteolysis from the implants, squeaking or audible noises, groin pain, thigh pain, heterotopic ossification, stiffness, aseptic loosening of the implants, dissatisfaction with surgical outcome, need for revision surgery, DVT, PE, swelling of the operative extremity, acute coronary event, stroke, failure to thrive, and possibly loss of life or limb. The patient understands that while these are the most common complications after an elective hip replacement there are certainly other less common complications possible. They were given ample time to ask questions regarding the potential complications of a hip replacement. Following our discussion the patient p rovided their verbal and written consent to go forward with an elective total hip replacement. Operative Findings: Severe right hip osteoarthritis Description of Procedure: The patient was identified in the preoperative holding area and the correct hip was marked with my initials. I reviewed the procedure and consent with the patient. All of their questions were answered. The patient was then brought back into the operating room by anesthesia. While on the [facility] anesthesia was administered by the anesthesia team. Preoperative antibiotics and tranexamic acid were also given. After the patient was under anesthesia I examined their ankles to determine their preoperative leg length discrepancy. The skin over the anterior aspect of the hip was shaved to remove hair over the site of planned incision. Both feet and ankles were padded with webril and boots for the [place] were applied. The patient was then carefully transferred onto the [place] table. A perineal post was immediately placed. The arms were placed on arm holders and were well-padded. Both boots were secured to the spars on the [place] table. The patient was positioned so that the pelvis was centered over the post. Nonsterile drapes were applied. A timeout was performed identifying the correct patient, operative extremity, and procedure. At this point fluoroscopy was brought in to take preoperative images of the pelvis and operative hip. Using the standing AP pelvis from the office as a template, a comparable image was obtained with fluoroscopy. A metallic bar was used to create a bi-ischial line for use as a reference to leg length adjustments during the procedure. Global offset was also measured on both the operative and nonoperative leg. Fluoroscopy was then brought out and a pre-scrub using a chlorhexidine scrub brush was performed. The operative limb was then prepped and draped in the standard sterile fashion. An anterior longitudinal incision was made lateral and distal to the ASIS. The skin and subcutaneous tissues were incised sharply. The underlying tensor fascia was identified and incised in its midportion. The fascia was dissected free from the underlying muscle and the muscle belly was retracted. A blunt tipped cobra retractor was placed over the superior neck under the muscle fibers of the gluteus minimus. The deep enveloping fascia of the tensor was incised. The anterior leash of vessels were then identified and cauterized. The fascia between the rectus and the capsule was then incised and the pre-capsular fat was excised. A second Cobra was placed inferior to the neck. The interval between the rectus and iliocapsularis and the hip capsule was developed and a retractor was placed carefully over the anterior rim of the acetabulum. A T-shaped anterior capsulotomy was performed. The superior capsular leaflet was left in place in the inferior capsular flap was excised. The Cobra retractors were placed intracapsularly. We then made a femoral neck osteotomy according to preoperative and intraoperative templating and confirmed the level of the osteotomy using fluoroscopic imaging. The femoral head was removed, passed off to the back table, and sized. The superior capsular flap was excised. Retractors were placed circumferentially exposing the acetabulum. We then circumferentially debrided the acetabulum free of labrum and osteophytes. The pulvinar was removed to fully visualize the cotyloid fossa. We then sequentially reamed to achieve peripheral fit and excellent bleeding subchondral bone. The socket was thoroughly irrigated. The acetabular component was impacted into the appropriate position using fluoroscopy to guide version, inclination, and depth of insertion taking care to have a comparable image of the AP pelvis to the standing image taken in the office. An excellent press-fit was achieved and final position was confirmed using fluoroscopy. The press fit was augmented with a bony cancellus dome screw. The liner was then impacted into the socket. Attention was then turned to the femur. The remnant dorsal lateral capsule was excised. The short external rotators were visible and protected. A bone hook was used to confirm appropriate translation of the trochanter away from the acetabulum. The leg was then extended and adducted and the bone hook was used to elevate the femur for broaching. A box osteotome and blunt tipped canal sound was then utilized to gain access to the femoral canal. We then sequentially broached the femur in appropriate anteversion until excellent torsional stability was achieved. The neck cut was brought flush to the trial broach with a calcar planar. A trial neck and head were then placed onto the broach and the hip was atraumatically reduced under direct visualization. External rotation to 90 was performed to assess stability. Fluoroscopy was brought in. An AP and lateral fluoroscopic image of the proximal femur was o btained to assess position and fill of the trial broach. An AP of the pelvis was then obtained and matched to the preoperative image taken. A bi-ischial bar was then placed and measurements were taken to assess changes in length and offset. The hip was then carefully dislocated, the proximal femur was exposed, and the trial implants were removed. The wound and proximal femur was thoroughly irrigated using sterile saline and pulsatile lavage. The final femoral implant was dispensed and gently tapped into place generating an excellent press-fit. The trunnion was cleansed and the final head was tapped into place to engage the Villela taper. The acetabulum was irrigated and visualized to be free of debris. The hip was carefully reduced. Stability was checked clinically with external rotation to 90 and there was no evidence of instability. Final fluoroscopic images were taken. The wound was then thoroughly irrigated and soaked with a dilute Betadine rinse for 3 minutes. 3 L of sterile saline was irrigated through the wound using pulsatile lavage. Local anesthetic cocktail was injected into the soft tissues around the surgical field. The wound was then closed in layers. A sterile dressing was placed over the surgical incision. The drapes were taken down and the patient was carefully transferred off of the [place] table. Following removal of the boots the leg lengths felt acceptable. The patient was then taken to recovery room having tolerated the procedure well. Mark Ferguson PA-C was required as a skilled business office assistant due to the complexity of surgery for patient positioning, draping, exposure, retraction, closure of wound and application of dressing. PLAN: The patient can weight-bear as tolerated on the operative extremity. 2 doses of postoperative antibiotics. DVT prophylaxis with aspirin 81 mg twice a day based on preoperative risk stratification. Physical therapy for gait training.
--- NOTE | 2024-12-22 09:47 | FL ---
EXAMINATION TYPE: FL guidance operating room, XR Hip Limited RT DATE OF EXAM: 12/22/2024 9:29 AM COMPARISON: Pre Operative Images if available both CT/MRI or plain film CLINICAL INDICATION: Male, 64 years old with history of RT ANTERIOR HIP; TECHNIQUE: FL guidance operating room, XR Hip Limited RT, multiple fluoroscopic images provided for p rocedure. DAP: 2.5458 mGym2 Gycm2 uGym2 cGycm2 or equivalent. FINDINGS: Fluoroscopic images during internal fixation/arthroplasty demonstrate hardware in appropriate positio n. Hardware appears intact. No immediate complication identified. IMPRESSION: 1. No evidence for intraoperative complication. 2. Please see the operative/procedural note for further details. [facility], , 12/22/2024 9:44 AM
[2024-12-22] MEDS: HYDROmorphone 0.5 MG/0.5 ML SYRINGE IVP PRN ×2 (10:16→21:13)
[2024-12-22 10:45] LABS: Glucose,Whole Blood 176 mg/dL (70-110)
[2024-12-22] MEDS: SODIUM CHLORIDE 0.9% 1,000 ML IV SCH (12:20)
[2024-12-22] MEDS: HYDROcodone/APAP 10-325MG 1 EACH TAB PO PRN (12:24)
[2024-12-22] MEDS: MULTIVITAMINS, THERA 1 EACH TAB PO SCH (12:33)
[2024-12-22] MEDS ORDERED: ALBUTEROL NEBULIZED 2.5 MG/3 ML INHALATION PRN (14:04)
[2024-12-22] MEDS ORDERED: SENNOSIDES-DOCUSATE SODIUM 1 EACH TAB PO PRN (14:04)
--- NOTE | 2024-12-22 14:49 | P.CONS ---
History of Present Illness - Reason for Consult Consult date: 12/22/24 Medical management Requesting physician: Sid Wray - Chief Complaint Status post right direct anterior total hip arthroplasty. - History of Present Illness HISTORY OF PRESENT ILLNESS: This is a 64-year-old male with a previous medical history significant for coronary artery disease status post PCI x 3 in 2012 under the care of Dr. Jimenez, hypertension and hypertensive cardiovascular disease, mixed hyperlipidemia, gout, enlarged prostate, GERD with esophagitis, glaucoma, osteoarthritis, chronic THC use, remote tobacco use and dependence, patient un derwent right anterior direct total hip arthroplasty that was done successfully by Dr. Wray and we were asked to see the patient for postoperative medical management patient is laying in bed currently on 2 L nasal cannula, his oxygen saturation was around 9192%,, he is tolerating his treatment very well, he was instructed to use incentive spirometer, he was seen in consultation by physical therapy, continue current pain management, continue albuterol as needed, patient is complaining of some pain in the right hip area, it was described as 7 out of 10 intensity he did receive some pain medication from his nurse just few minutes ago. REVIEW OF SYSTEMS: Constitutional: No documented fever, no chills, no night sweats. No weight change. No weakness, fatigue or lethargy. No daytime sleepiness. EENT: No headache. No blurred vision or double vision, no loss of vision. No loss of Hearing, no ringing in the ears, no dizziness. No nasal drainage or congestion. No epistaxis. No sore throat. Lungs: No shortness of breath, no cough, no sputum production. No wheezing. Reports dyspnea with activity. Cardiovascular: No chest pain, no lower extremity edema. No palpitations. No paroxysmal nocturnal dyspnea. No orthopnea. No lightheadedness or dizziness. No syncopal episodes. Abdominal: Reports no abdominal pain. No nausea, vomiting. No diarrhea. No constipation. No bloody or tarry stools reports loss of appetite. Genitourinary: No dysuria, increased frequency, urgency. No urinary retention. Musculoskeletal: No myalgias. No muscle weakness, mild gait dysfunction, no frequent falls. positive for back pain. No neck pain, positive for right hip pain Integumentary: right anterior hip wound is covered with dressing, no lesions. No rash or pruritus. No unusual bruising. No change in hair or nails. Neurologic: No aphasia. No facial droop. No change in mentation. No head injury. No headache. No paralysis. No paresthesia, Psychiatric: No depression. positive for anxiety. No mood swings. Endocrine: No abnormal blood sugars. No weight change. PAST MEDICAL HISTORY: Coronary artery disease status post PCI x 3 in 2011 Hypertension and hypertensive cardiovascular disease. Mixed hyperlipidemia. Idiopathic gout. Enlarged prostate. Anxiety disorder. GERD with esophagitis Glaucoma. Osteoarthritis. THC use. PAST SURGICAL HISTORY: Left heart catheterization with PCI x 3 in 2011 Laparoscopic right inguinal hernia repair 12/20/2019 Colonoscopy 03/24/2024 Left anterior total hip arthroplasty. 08/04/2024 Right anterior total hip arthroplasty 12/22/2024 SOCIAL HISTORY: Patient used to smoke about a pack every day since the age of 17 and quit in June 28, 2022 currently smokes marijuana, he denies any alcohol ingestion, he denies any drug use or abuse. FAMILY HISTORY: Father at the age of 78 from alcoholism and liver failure mother at the age of 89 had a history of diabetes CVA dementia and chronic kidney disease along with hypertension patient had 3 brothers 1 from pancreatic cancer patient had 4 sisters 1 passed from overdose on speed and the other 1 are okay patient has 2 adopted children and 3 stepchildren 1 passed from [place] at the age of 42 and was alcohol user. PHYSICAL EXAMINATION: General: 64-year-old male laying down in bed in no apparent distress. HEENT: Head is atraumatic, normocephalic, pupils were equal round reactive to light and recommendation, extraocular muscle movement were intact, sclera nonicteric, conjunctivae were pale, mucous membranes of the mouth are somewhat dry. Neck: Supple, no JVP, normal carotid upstroke bilaterally, no lymphadenopathy. Chest: Decreased breath sounds at the bases, few rhonchi, minimal expiratory wheezes, no chest wall tenderness, no intercostal retractions. Heart: First heart sound is normal, second heart sound is normal there is systolic ejection murmur 2/6 located in the left sternal border. Abdomen: Soft, tenderness to the left lower quadrant, nondistended, positive bowel sounds. Extremities: There is no edema no calf tenderness DP +2 bilaterally, right hip anterior incision is covered with dressing. Neurologic examination: Patient is awake alert and oriented x3, cranial nerves II-12 appear grossly intact, muscle power were 5 out of 5 in upper extremities and 5 out of 5 in bilateral lower extremities, deep tendon reflexes normal bilaterally ASSESSMENT AND PLAN: 1. Postoperative day #0 status post direct anterior right total hip arthroplasty. Patient was instructed about the usage of incentive spirometer to reduce the incidence of atelectasis and healthcare associated pneumonia, continue with current pain management, physical therapy evaluation, increase activity, resume home medication, continue current pain management as tolerated. 2. Coronary artery disease status post PCI x 3 in 2011. Continue patient on aspirin 81 mg orally twice every day, metoprolol ER 50 mg orally once every day, atorvastatin 80 mg once every day, monitor the patient's symptoms very closely, continue isosorbide mononitrate 30 mg orally once every day patient follows with cardiology on a regular basis Dr. Jimenez. 3. Hypertension and hypertensive cardiovascular disease. Continue patient on amlodipine benazepril 5/40 mg orally once every day, metoprolol XL 50 mg orally once every day, monitor the patient blood pressure very closely. 4. Mixed hyperlipidemia. Continue patient on atorvastatin 80 mg once every day monitor the patient blood panel, keep LDL 55-70. 5. Enlarged prostate. Monitor the patient for urinary retention. 6. GERD with esophagitis. Continue pantoprazole 40 mg orally once every day. 7. History of gout. Stable at this time. 8. Anxiety disorder. Continue patient on Wellbutrin 150 mg once every day as well as paroxetine 40 mg once every day. 9. Chronic THC use. Patient was advised against its use. 10. History of glaucoma. Continue Xalatan 0.005% 1 drop in both eyes at bedtime 11. COPD. Continue patient on albuterol HFA 2 puffs inhalation every 4 hours as needed. 12. Left renal cyst has been followed by a CT urogram on yearly basis. 13. DVT prophylaxis. Continue aspirin 81 mg orally twice every day. 14. GI prophylaxis. Continue patient on Protonix 40 mg orally once every day. 15. Thank you for the consult we will follow the patient with you. Past Medical History Past Medical History: Diabetes Mellitus, GERD/Reflux, Hypertension, Myocardial Infarction ([place]) Additional Past Medical History / Comment(s): [place] x4 Last Myocardial Infarction Date:: 2011 History of Any Multi-Drug Resistant Organisms: None Reported Past Surgical History: Heart Catheterization With Stent, Joint Replacement Additional Past Surgical History / Comment(s): total of 3 cardiac stents, colonoscopy, total lft hip, Past Anesthesia/Blood Transfusion Reactions: No Reported Reaction Additional Past Anesthesia/Blood Transfusion Reaction / Comm: no blood tx hx Date of Last Stent Placement:: december Past Psychological History: Anxiety, Depression Smoking Status: Former smoker Past Alcohol Use History: None Reported Additional Past Alcohol Use History / Comment(s): quit 2022 Past Drug Use History: Marijuana Additional Drug Use History / Comment(s): patient uses marijuana daily, refrain 24 hours prior to proc - Past Family History Father Family Medical History: No Reported History Medications and Allergies Home Medications Medication Instructions Recorded Confirmed Type Isosorbide Mononitrate ER [Imdur] 30 mg PO DAILY 05/13/18 12/22/24 History Latanoprost/Pf [Latanoprost 0.005% 1 drop BOTH EYES HS 05/13/18 12/19/24 History Eye Drop] Metoprolol Succinate (ER) [Toprol 50 mg PO DAILY 05/13/18 12/22/24 History XL] PARoxetine HCL [Paxil] 40 mg PO DAILY 05/13/18 12/22/24 History buPROPion HCL [Wellbutrin SR] 150 mg PO DAILY 05/13/18 12/22/24 History Rosuvastatin Calcium [Crestor] 40 mg PO DAILY 01/07/21 12/22/24 History amLODIPine BESYLATE/BENAZEPRIL 1 cap PO DAILY 01/07/21 12/22/24 History [amLODIPine BESYLATE/BENAZEPRIL 5-40 MG] Albuterol Sulfate [Albuterol 1 - 2 puff PO RT-Q4H PRN 04/28/24 12/22/24 History Sulfate Hfa] Dapagliflozin Propanediol [Farxiga] 5 mg PO DAILY 04/28/24 12/22/24 History Pantoprazole [Protonix] 40 mg PO DAILY 04/28/24 12/22/24 History Ubidecarenone [Co Q-10] 300 mg PO DAILY 04/28/24 12/22/24 History Vitamin B Complex 1 cap PO DAILY 04/28/24 12/22/24 History Zinc Gluconate [Zinc] 50 mg PO DAILY 04/28/24 12/22/24 History Furosemide [Lasix] 20 mg PO DAILY 08/01/24 12/22/24 History Sennosides-Docusate Sodium 1 tab PO BID PRN #60 tablet 08/07/24 12/22/24 Rx [Senokot-S] Tamsulosin [Flomax] 0.4 mg PO PC-BRKFST #30 cap 08/07/24 12/22/24 Rx Aspirin 81 mg PO DAILY 12/19/24 12/22/24 History Allergies Allergy/AdvReac Type Severity Reaction Status Date / Time niacin Allergy Itching Verified 12/22/24 06:15 [From Niaspan Extended-Release] Physical Exam Vitals: Vital Signs Temp Pulse Resp BP Pulse Ox 12/22/24 12:16 97.7 F 70 18 127/76 92 L 12/22/24 11:53 79 16 127/65 95 12/22/24 11:30 71 18 110/64 95 12/22/24 11:08 68 18 120/72 93 L 12/22/24 10:53 73 18 131/78 94 L 12/22/24 10:11 72 16 146/82 94 L 12/22/24 09:56 81 16 148/83 97 12/22/24 09:41 97.5 F L 77 16 157/81 98 12/22/24 07:05 73 18 147/101 97 12/22/24 06:58 70 16 144/94 99 12/22/24 06:49 70 16 121/82 98 12/22/24 06:24 98.2 F 67 16 127/85 97 Intake and Output 12/21/24 12/22/24 12/22/24 22:59 06:59 14:59 Intake Total 300 1300 Output Total 200 Balance 300 1100 Intake: IV 300 1300 Output: Estimated Blood Loss 200 Other: Weight 84.3 kg 84.3 kg Results Labs: Abnormal Lab Results - Last 24 Hours (Table) 12/22/24 12/22/24 Range/Units 06:29 10:43 POC Glucose (mg/dL) 111 H 176 H (70-110) mg/dL
[2024-12-22 16:50] LABS: Glucose,Whole Blood 123 mg/dL (70-110)
[2024-12-22 20:20] LABS: Glucose,Whole Blood 151 mg/dL (70-110)
[2024-12-22] MEDS: SENNOSIDES-DOCUSATE SODIUM 1 EACH TAB PO SCH (21:13)
[2024-12-22] MEDS: ASPIRIN 81 MG PO SCH (21:13)
[2024-12-22] MEDS: LATANOPROST 0.005% OPHTH DROPS 2.5 ML BTL BOTH EYES SCH (21:44)
[2024-12-23 06:07] LABS: Glucose,Whole Blood 141 mg/dL (70-110)
[2024-12-23] MEDS: METOPROLOL SUCCINATE (ER) 50 MG TAB.ER.24H PO SCH (07:57)
[2024-12-23] MEDS: ISOSORBIDE MONONITRATE ER 30 MG TAB.ER.24H PO SCH (07:57)
[2024-12-23] MEDS: PANTOPRAZOLE 40 MG TABLET PO SCH (07:58)
[2024-12-23] MEDS: buPROPion SR 150 MG TABLET.ER PO SCH (07:58)
[2024-12-23] MEDS: FAMOTIDINE 20 MG TAB PO SCH (07:58)
[2024-12-23] MEDS: amLODIPine 5 MG TAB PO SCH (07:58)
[2024-12-23] MEDS: DAPAGLIFLOZIN PROPANEDIOL 5 MG TABLET PO SCH (07:58)
[2024-12-23] MEDS: ATORVASTATIN 80 MG TAB PO SCH (07:58)
[2024-12-23] MEDS: TAMSULOSIN 0.4 MG CAP.ER.24H PO SCH (07:58)
[2024-12-23] MEDS: PARoxetine 20 MG TAB PO SCH (07:58)
[2024-12-23] MEDS: ZINC SULFATE 220 MG CAP PO SCH (07:58)
[2024-12-23] MEDS: FUROSEMIDE 20 MG TAB PO SCH (07:59)
[2024-12-23 08:41] LABS: Basophils # (A) 0.01 X 10*3/uL (0.00-0.10); Basophils % (A) 0.1 %; Eosinophils # (A) 0 X 10*3/uL (0.04-0.35); Eosinophils % (A) 0 %; HCT 38.3 % (39.6-50.0); HGB 11.9 g/dL (13.0-17.0); Immature Grans, Automated 0.60 %; Lymphocytes # (A) 1.29 X 10*3/uL (0.90-5.00); Lymphocytes % (A) 8.4 %; MCH 26.4 pg (27.0-32.0); MCHC 31.1 g/dL (32.0-37.0); MCV 85.1 FL (80.0-97.0); Monocytes # (A) 1.34 X 10*3/uL (0.20-1.00); Monocytes % (A) 8.7 %; NRBC Per 100 WBC 0 X 10*3/uL (0.00-0.01); Neutrophils # (A) 12.60 X 10*3/uL (1.80-7.70); Neutrophils % (A) 82.2 %; Platelet Count 182 X 10*3/uL (140-440); RBC 4.50 X 10*6/uL (4.40-5.60); RDW 19.3 % (11.5-14.5); WBC 15.33 X 10*3/uL (4.50-10.00)
[2024-12-23] MEDS ORDERED: NON FORMULARY DRUG (Vitamin B Complex [Vitamin B Complex] 1 EACH Capsule) PO SCH (09:00)
[2024-12-23] MEDS ORDERED: NON FORMULARY DRUG (Ubidecarenone [Co Q-10] 300 MG Capsule) PO SCH (09:00)
--- NOTE | 2024-12-23 11:21 | P.PN ---
Subjective Progress Note Date: 12/23/24 No acute events overnight. Patient is doing well this morning. The pain in their hip is moderate. They have walked to the bathroom with a walker and assistance. They deny chest pain or shortness of breath. Objective - Vital Signs Vital signs: Vital Signs Temp 98 F 12/23/24 06:45 Pulse 85 12/23/24 07:40 Resp 20 12/23/24 07:40 BP 170/71 12/23/24 06:45 Pulse Ox 95 12/23/24 06:45 FiO2 Intake & Output 12/22/24 12/23/24 12/23/24 18:59 06:59 18:59 Intake Total 2490 Output Total 600 400 Balance 1890 -400 Weight 84.3 kg Intake: IV 1300 Intake, IV Titration 850 Amount Sodium Chloride 0.9% 1, 800 000 ml @ 100 mls/hr IV . Q10H ANTHONY Rx#:[id number] ceFAZolin 2 gm In Sodium 50 Chloride 0.9% 50 ml @ 100 mls/hr IVPB Q8HR ANTHONY Rx# :[id number] Oral 340 Output: Urine 400 400 Estimated Blood Loss 200 Other: Voiding Method Urinal Urinal # Voids 5 - Exam Patient was examined at bedside. Patient is resting comfortably in bed. No apparent distress. They are awake, alert and able to answer questions. Inspection: The surgical dressing is intact, there is no drainage or strikethrough. The skin surrounding the dressing is free of erythema. There is mild swelling in the operative thigh. Palpation: The operative calf is soft to compression. No calf tenderness. Neurovascular: Operative femoral nerve function is intact. The patient is able to actively plantarflex and dorsiflex their operative ankle and toes. Operative extremity sensation is intact to light touch throughout. Their operative foot appears well perfused, palpable dorsalis pedis pulse, and capillary refill under 2 seconds. - Labs CBC & Chem 7: 12/23/24 03:02 Labs: Abnormal Lab Results - Last 24 Hours (Table) 12/22/24 12/22/24 12/23/24 Range/Units 16:49 20:19 03:02 WBC 15.33 H (4.50-10.00) X 10*3/uL Hgb 11.9 L (13.0-17.0) g/dL Hct 38.3 L (39.6-50.0) % MCH 26.4 L (27.0-32.0) pg MCHC 31.1 L (32.0-37.0) g/dL RDW 19.3 H (11.5-14.5) % Immature Gran # 0.09 H (0.00-0.04) X 10*3/uL Neutrophils # 12.60 H (1.80-7.70) X 10*3/uL Monocytes # 1.34 H (0.20-1.00) X 10*3/uL Eosinophils # 0 L (0.04-0.35) X 10*3/uL POC Glucose (mg/dL) 123 H 151 H (70-110) mg/dL 12/23/24 Range/Units 06:05 WBC (4.50-10.00) X 10*3/uL Hgb (13.0-17.0) g/dL Hct (39.6-50.0) % MCH (27.0-32.0) pg MCHC (32.0-37.0) g/dL RDW (11.5-14.5) % Immature Gran # (0.00-0.04) X 10*3/uL Neutrophils # (1.80-7.70) X 10*3/uL Monocytes # (0.20-1.00) X 10*3/uL Eosinophils # (0.04-0.35) X 10*3/uL POC Glucose (mg/dL) 141 H (70-110) mg/dL Assessment and Plan Assessment: Postop day #1 12/22/2024 status post right total hip arthroplasty for right hip osteoarthritis Right hip pain Multiple medical problems Plan: Weight-bear as tolerated on the operative extremity. Use a walker to ambulate. Leave surgical dressing in place. Physical therapy for gait training and mobilization. We appreciate internal medicine for perioperative medical management. Disposition: Plan to discharge home Wednesday if pain controlled.
[2024-12-23 11:38] LABS: Glucose,Whole Blood 111 mg/dL (70-110)
--- NOTE | 2024-12-23 12:56 | P.PN ---
Subjective Progress Note Date: 12/23/24 HISTORY OF PRESENT ILLNESS: This is a 64-year-old male with a previous medical history significant for coronary artery disease status post PCI x 3 in 2012 under the care of Dr. Jimenez, hypertension and hypertensive cardiovascular disease, mixed hyperlipidemia, gout, enlarged prostate, GERD with esophagitis, glaucoma, osteoarthritis, chronic THC use, remote tobacco use and dependence, patient u nderwent right anterior direct total hip arthroplasty that was done successfully by Dr. Wray and we were asked to see the patient for postoperative medical management patient is laying in bed currently on 2 L nasal cannula, his oxygen saturation was around 9192%,, he is tolerating his treatment very well, he was instructed to use incentive spirometer, he was seen in consultation by physical therapy, continue current pain management, continue albuterol as needed, patient is complaining of some pain in the right hip area, it was described as 7 out of 10 intensity he did receive some pain medication from his nurse just few minutes ago. 12/23: Patient is sitting up in a chair today, his pain was described as a 5 out of 10 in intensity, he is using ice packs, he continues to be on current pain management, he is using incentive spirometer, he is using baby aspirin 81 mg orally twice every day for DVT prophylaxis, continue to work with physical therapy, I spoke with the orthopedic service and they are planning to keep the patient in the hospital until Wednesday. REVIEW OF SYSTEMS: Constitutional: No documented fever, no chills, no night sweats. No weight change. No weakness, fatigue or lethargy. No daytime sleepiness. EENT: No headache. No blurred vision or double vision, no loss of vision. No loss of Hearing, no ringing in the ears, no dizziness. No nasal drainage or congestion. No epistaxis. No sore throat. Lungs: No shortness of breath, no cough, no sputum production. No wheezing. Reports dyspnea with activity. Cardiovascular: No chest pain, no lower extremity edema. No palpitations. No paroxysmal nocturnal dyspnea. No orthopnea. No lightheadedness or dizziness. No syncopal episodes. Abdominal: Reports no abdominal pain. No nausea, vomiting. No diarrhea. No constipation. No bloody or tarry stools reports loss of appetite. Genitourinary: No dysuria, increased frequency, urgency. No urinary retention. Musculoskeletal: No myalgias. No muscle weakness, mild gait dysfunction, no frequent falls. positive for back pain. No neck pain, positive for right hip pain Integumentary: right anterior hip wound is covered with dressing, no lesions. No rash or pruritus. No unusual bruising. No change in hair or nails. Neurologic: No aphasia. No facial droop. No change in mentation. No head injury. No headache. No paralysis. No paresthesia, Psychiatric: No depression. positive for anxiety. No mood swings. Endocrine: No abnormal blood sugars. No weight change. PHYSICAL EXAMINATION: General: 64-year-old male laying down in bed in no apparent distress. HEENT: Head is atraumatic, normocephalic, pupils were equal round reactive to light and recommendation, extraocular muscle movement were intact, sclera nonicteric, conjunctivae were pale, mucous membranes of the mouth are somewhat dry. Neck: Supple, no JVP, normal carotid upstroke bilaterally, no lymphadenopathy. Chest: Decreased breath sounds at the bases, few rhonchi, minimal expiratory wheezes, no chest wall tenderness, no intercostal retractions. Heart: First heart sound is normal, second heart sound is normal there is systolic ejection murmur 2/6 located in the left sternal border. Abdomen: Soft, tenderness to the left lower quadrant, nondistended, positive bowel sounds. Extremities: There is no edema no calf tenderness DP +2 bilaterally, right hip anterior incision is covered with dressing. Neurologic examination: Patient is awake alert and oriented x3, cranial nerves II-12 appear grossly intact, muscle power were 5 out of 5 in upper extremities and 5 out of 5 in bilateral lower extremities, deep tendon reflexes normal bilaterally ASSESSMENT AND PLAN: 1. Postoperative day # 1 status post direct anterior right total hip arthroplasty. Patient was instructed about the usage of incentive spirometer to reduce the incidence of atelectasis and healthcare associated pneumonia, continue with current pain management, physical therapy evaluation, increase activity, resume home medication, continue current pain management as tolerated. DVT prophylaxis with aspirin 81 mg orally twice every day increase activity level 2. Coronary artery disease status post PCI x 3 in 2011. Continue patient on aspirin 81 mg orally twice every day, metoprolol ER 50 mg orally once every day, atorvastatin 80 mg once every day, monitor the patient's symptoms very closely, continue isosorbide mononitrate 30 mg orally once every day patient follows with cardiology on a regular basis Dr. Jimenez. 3. Hypertension and hypertensive cardiovascular disease. Continue patient on amlodipine benazepril 5/40 mg orally once every day, metoprolol XL 50 mg orally once every day, monitor the patient blood pressure very closely. 4. Mixed hyperlipidemia. Continue patient on atorvastatin 80 mg once every day monitor the patient blood panel, keep LDL 55-70. 5. Enlarged prostate. Monitor the patient for urinary retention. 6. GERD with esophagitis. Continue pantoprazole 40 mg orally once every day. 7. History of gout. Stable at this time. 8. Anxiety disorder. Continue patient on Wellbutrin 150 mg once every day as well as paroxetine 40 mg once every day. 9. Chronic THC use. Patient was advised against its use. 10. History of glaucoma. Continue Xalatan 0.005% 1 drop in both eyes at bedtime 11. COPD. Continue patient on albuterol HFA 2 puffs inhalation every 4 hours as needed. 12. Left renal cyst has been followed by a CT urogram on yearly basis. 13. DVT prophylaxis. Continue aspirin 81 mg orally twice every day. 14. GI prophylaxis. Continue patient on Protonix 40 mg orally once every day. 15. We will continue to follow with you Objective - Vital Signs Vital signs: Vital Signs Temp 98 F 12/23/24 06:45 Pulse 85 12/23/24 07:40 Resp 20 12/23/24 07:40 BP 170/71 12/23/24 06:45 Pulse Ox 95 12/23/24 06:45 FiO2 Intake & Output 12/22/24 12/23/24 12/23/24 18:59 06:59 18:59 Intake Total 2490 Output Total 600 400 Balance 1890 -400 Weight 84.3 kg Intake: IV 1300 Intake, IV Titration 850 Amount Sodium Chloride 0.9% 1, 800 000 ml @ 100 mls/hr IV . Q10H ANTHONY Rx#:[id number] ceFAZolin 2 gm In Sodium 50 Chloride 0.9% 50 ml @ 100 mls/hr IVPB Q8HR ANTHONY Rx# :[id number] Oral 340 Output: Urine 400 400 Estimated Blood Loss 200 Other: Voiding Method Urinal Urinal # Voids 5 - Labs CBC & Chem 7: 12/23/24 03:02 Labs: Abnormal Lab Results - Last 24 Hours (Table) 12/22/24 12/22/24 12/23/24 Range/Units 16:49 20:19 03:02 WBC 15.33 H (4.50-10.00) X 10*3/uL Hgb 11.9 L (13.0-17.0) g/dL Hct 38.3 L (39.6-50.0) % MCH 26.4 L (27.0-32.0) pg MCHC 31.1 L (32.0-37.0) g/dL RDW 19.3 H (11.5-14.5) % Immature Gran # 0.09 H (0.00-0.04) X 10*3/uL Neutrophils # 12.60 H (1.80-7.70) X 10*3/uL Monocytes # 1.34 H (0.20-1.00) X 10*3/uL Eosinophils # 0 L (0.04-0.35) X 10*3/uL POC Glucose (mg/dL) 123 H 151 H (70-110) mg/dL 12/23/24 12/23/24 Range/Units 06:05 11:36 WBC (4.50-10.00) X 10*3/uL Hgb (13.0-17.0) g/dL Hct (39.6-50.0) % MCH (27.0-32.0) pg MCHC (32.0-37.0) g/dL RDW (11.5-14.5) % Immature Gran # (0.00-0.04) X 10*3/uL Neutrophils # (1.80-7.70) X 10*3/uL Monocytes # (0.20-1.00) X 10*3/uL Eosinophils # (0.04-0.35) X 10*3/uL POC Glucose (mg/dL) 141 H 111 H (70-110) mg/dL
[2024-12-23 16:59] LABS: Glucose,Whole Blood 127 mg/dL (70-110)
[2024-12-23 21:14] LABS: Glucose,Whole Blood 114 mg/dL (70-110)
[2024-12-24 05:54] LABS: Glucose,Whole Blood 102 mg/dL (70-110)
--- NOTE | 2024-12-24 08:39 | P.PN ---
Subjective Progress Note Date: 12/24/24 No acute events overnight. Patient is doing well this morning. The pain in their hip is moderate. They have walked to the bathroom with a walker and assistance. They deny chest pain or shortness of breath. Objective - Vital Signs Vital signs: Vital Signs Temp 98 F 12/24/24 06:57 Pulse 82 12/24/24 07:37 Resp 18 12/24/24 07:37 BP 143/75 12/24/24 06:57 Pulse Ox 94 L 12/24/24 06:57 FiO2 Intake & Output 12/23/24 12/24/24 12/24/24 18:59 06:59 18:59 Output Total 1800 1425 Balance -1800 -1425 Output: Urine 1800 1425 Other: Voiding Method Urinal Urinal - Exam Patient was examined at bedside. Patient is resting comfortably in bed. No apparent distress. They are awake, alert and able to answer questions. Inspection: The surgical dressing is intact, there is no drainage or strikethrough. The skin surrounding the dressing is free of erythema. There is mild swelling in the operative thigh. Palpation: The operative calf is soft to compression. No calf tenderness. Neurovascular: Operative femoral nerve function is intact. The patient is able to actively plantarflex and dorsiflex their operative ankle and toes. Operative extremity sensation is intact to light touch throughout. Their operative foot appears well perfused, palpable dorsalis pedis pulse, and capillary refill under 2 seconds. - Labs CBC & Chem 7: 12/23/24 03:02 Labs: Abnormal Lab Results - Last 24 Hours (Table) 12/23/24 12/23/24 12/23/24 Range/Units 03:02 11:36 16:57 WBC 15.33 H (4.50-10.00) X 10*3/uL Hgb 11.9 L (13.0-17.0) g/dL Hct 38.3 L (39.6-50.0) % MCH 26.4 L (27.0-32.0) pg MCHC 31.1 L (32.0-37.0) g/dL RDW 19.3 H (11.5-14.5) % Immature Gran # 0.09 H (0.00-0.04) X 10*3/uL Neutrophils # 12.60 H (1.80-7.70) X 10*3/uL Monocytes # 1.34 H (0.20-1.00) X 10*3/uL Eosinophils # 0 L (0.04-0.35) X 10*3/uL POC Glucose (mg/dL) 111 H 127 H (70-110) mg/dL 12/23/24 Range/Units 21:07 WBC (4.50-10.00) X 10*3/uL Hgb (13.0-17.0) g/dL Hct (39.6-50.0) % MCH (27.0-32.0) pg MCHC (32.0-37.0) g/dL RDW (11.5-14.5) % Immature Gran # (0.00-0.04) X 10*3/uL Neutrophils # (1.80-7.70) X 10*3/uL Monocytes # (0.20-1.00) X 10*3/uL Eosinophils # (0.04-0.35) X 10*3/uL POC Glucose (mg/dL) 114 H (70-110) mg/dL Assessment and Plan Assessment: Postop day #2 12/22/2024 status post right total hip arthroplasty for right hip osteoarthritis Right hip pain Multiple medical problems Plan: Weight-bear as tolerated on the operative extremity. Use a walker to ambulate. Leave surgical dressing in place. Physical therapy for gait training and mobilization. We appreciate internal medicine for perioperative medical management. Disposition: Plan to discharge home Wednesday if pain controlled.
[2024-12-24 10:46] LABS: Glucose,Whole Blood 132 mg/dL (70-110)
--- NOTE | 2024-12-24 11:10 | P.PN ---
Subjective Progress Note Date: 12/24/24 HISTORY OF PRESENT ILLNESS: This is a 64-year-old male with a previous medical history significant for coronary artery disease status post PCI x 3 in 2012 under the care of Dr. Jimenez, hypertension and hypertensive cardiovascular disease, mixed hyperlipidemia, gout, enlarged prostate, GERD with esophagitis, glaucoma, osteoarthritis, chronic THC use, remote tobacco use and dependence, patient u nderwent right anterior direct total hip arthroplasty that was done successfully by Dr. Wray and we were asked to see the patient for postoperative medical management patient is laying in bed currently on 2 L nasal cannula, his oxygen saturation was around 9192%,, he is tolerating his treatment very well, he was instructed to use incentive spirometer, he was seen in consultation by physical therapy, continue current pain management, continue albuterol as needed, patient is complaining of some pain in the right hip area, it was described as 7 out of 10 intensity he did receive some pain medication from his nurse just few minutes ago. 12/23: Patient is sitting up in a chair today, his pain was described as a 5 out of 10 in intensity, he is using ice packs, he continues to be on current pain management, he is using incentive spirometer, he is using baby aspirin 81 mg orally twice every day for DVT prophylaxis, continue to work with physical therapy, I spoke with the orthopedic service and they are planning to keep the patient in the hospital until Wednesday morning. 12/24: Patient is doing better today, he is moving around using his walker, continues to have about 5-7 out of 10 intensity pain in the right hip area, he has been getting his pain medication, he continues to use incentive spirometer, continue with albuterol as needed, patient will likely be discharged home tomorrow morning, follow-up with orthopedic surgery as an outpatient. REVIEW OF SYSTEMS: Constitutional: No documented fever, no chills, no night sweats. No weight change. No weakness, fatigue or lethargy. No daytime sleepiness. EENT: No headache. No blurred vision or double vision, no loss of vision. No loss of Hearing, no ringing in the ears, no dizziness. No nasal drainage or congestion. No epistaxis. No sore throat. Lungs: No shortness of breath, no cough, no sputum production. No wheezing. Reports dyspnea with activity. Cardiovascular: No chest pain, no lower extremity edema. No palpitations. No paroxysmal nocturnal dyspnea. No orthopnea. No lightheadedness or dizziness. No syncopal episodes. Abdominal: Reports no abdominal pain. No nausea, vomiting. No diarrhea. No constipation. No bloody or tarry stools reports loss of appetite. Genitourinary: No dysuria, increased frequency, urgency. No urinary retention. Musculoskeletal: No myalgias. No muscle weakness, mild gait dysfunction, no frequent falls. positive for back pain. No neck pain, positive for right hip pain Integumentary: right anterior hip wound is covered with dressing, no lesions. No rash or pruritus. No unusual bruising. No change in hair or nails. Neurologic: No aphasia. No facial droop. No change in mentation. No head injury. No headache. No paralysis. No paresthesia, Psychiatric: No depression. positive for anxiety. No mood swings. Endocrine: No abnormal blood sugars. No weight change. PHYSICAL EXAMINATION: General: 64-year-old male laying down in bed in no apparent distress. HEENT: Head is atraumatic, normocephalic, pupils were equal round reactive to light and recommendation, extraocular muscle movement were intact, sclera nonicteric, conjunctivae were pale, mucous membranes of the mouth are somewhat dry. Neck: Supple, no JVP, normal carotid upstroke bilaterally, no lymphadenopathy. Chest: Decreased breath sounds at the bases, few rhonchi, minimal expiratory wheezes, no chest wall tenderness, no intercostal retractions. Heart: First heart sound is normal, second heart sound is normal there is systolic ejection murmur 2/6 located in the left sternal border. Abdomen: Soft, tenderness to the left lower quadrant, nondistended, positive bowel sounds. Extremities: There is no edema no calf tenderness DP +2 bilaterally, right hip anterior incision is covered with dressing. Neurologic examination: Patient is awake alert and oriented x3, cranial nerves II-12 appear grossly intact, muscle power were 5 out of 5 in upper extremities and 5 out of 5 in bilateral lower extremities, deep tendon reflexes normal bilaterally ASSESSMENT AND PLAN: 1. Postoperative day # 2 status post direct anterior right total hip arthroplasty. Patient was instructed about the usage of incentive spirometer to reduce the incidence of atelectasis and healthcare associated pneumonia, continue with current pain management, physical therapy evaluation, increase activity, resume home medication, continue current pain management as tolerated. DVT prophylaxis with aspirin 81 mg orally twice every day increase activity level 2. Coronary artery disease status post PCI x 3 in 2012. Continue patient on aspirin 81 mg orally twice every day, metoprolol ER 50 mg orally once every day, atorvastatin 80 mg once every day, monitor the patient's symptoms very closely, continue isosorbide mononitrate 30 mg orally once every day patient follows with cardiology on a regular basis Dr. Jimenez. 3. Hypertension and hypertensive cardiovascular disease. Continue patient on amlodipine benazepril 5/40 mg orally once every day, metoprolol XL 50 mg orally once every day, monitor the patient blood pressure very closely. 4. Mixed hyperlipidemia. Continue patient on atorvastatin 80 mg once every day monitor the patient blood panel, keep LDL 55-70. 5. Enlarged prostate. Monitor the patient for urinary retention. 6. GERD with esophagitis. Continue pantoprazole 40 mg orally once every day. 7. History of gout. Stable at this time. 8. Anxiety disorder. Continue patient on Wellbutrin 150 mg once every day as well as paroxetine 40 mg once every day. 9. Chronic THC use. Patient was advised against its use. 10. History of glaucoma. Continue Xalatan 0.005% 1 drop in both eyes at bedtime 11. COPD. Continue patient on albuterol HFA 2 puffs inhalation every 4 hours as needed. 12. Left renal cyst has been followed by a CT urogram on yearly basis. 13. DVT prophylaxis. Continue aspirin 81 mg orally twice every day. 14. GI prophylaxis. Continue patient on Protonix 40 mg orally once every day. 15. Patient is medically stable for discharge in the next 24 hours. Objective - Vital Signs Vital signs: Vital Signs Temp 98 F 12/24/24 06:57 Pulse 82 12/24/24 07:37 Resp 18 12/24/24 07:37 BP 143/75 12/24/24 06:57 Pulse Ox 94 L 12/24/24 06:57 FiO2 Intake & Output 12/23/24 12/24/24 12/24/24 18:59 06:59 18:59 Output Total 1800 1425 Balance -1800 -1425 Output: Urine 1800 1425 Other: Voiding Method Urinal Urinal - Labs CBC & Chem 7: 12/23/24 03:02 Labs: Abnormal Lab Results - Last 24 Hours (Table) 12/23/24 12/23/24 12/23/24 Range/Units 11:36 16:57 21:07 POC Glucose (mg/dL) 111 H 127 H 114 H (70-110) mg/dL
[2024-12-24 16:46] LABS: Glucose,Whole Blood 105 mg/dL (70-110)
[2024-12-24 20:14] LABS: Glucose,Whole Blood 154 mg/dL (70-110)
[2024-12-25 02:14] VITALS: RESP 17
[2024-12-25 06:21] LABS: Glucose,Whole Blood 120 mg/dL (70-110)
[2024-12-25 07:06] VITALS: BP 120/81; PULSE 85; TEMP 98.1
[2024-12-25 07:51] LABS: Basophils # (A) 0.03 X 10*3/uL (0.00-0.10); Basophils % (A) 0.3 %; Eosinophils # (A) 0.10 X 10*3/uL (0.04-0.35); Eosinophils % (A) 1.1 %; HCT 39.2 % (39.6-50.0); HGB 12.4 g/dL (13.0-17.0); Immature Grans, Automated 0.30 %; Lymphocytes # (A) 1.95 X 10*3/uL (0.90-5.00); Lymphocytes % (A) 21.8 %; MCH 26.6 pg (27.0-32.0); MCHC 31.6 g/dL (32.0-37.0); MCV 84.1 FL (80.0-97.0); Monocytes # (A) 0.82 X 10*3/uL (0.20-1.00); Monocytes % (A) 9.2 %; NRBC Per 100 WBC 0 X 10*3/uL (0.00-0.01); Neutrophils # (A) 6.01 X 10*3/uL (1.80-7.70); Neutrophils % (A) 67.3 %; Platelet Count 175 X 10*3/uL (140-440); RBC 4.66 X 10*6/uL (4.40-5.60); RDW 19.2 % (11.5-14.5); WBC 8.94 X 10*3/uL (4.50-10.00)
--- NOTE | 2024-12-25 08:27 | P.DS ---
Providers Attending physician: Sid Wray Consults: 12/22/24 09:27 Consult Physician Routine Consulting Provider: Shan Carrillo Consult Reason/Comments: post op medical management Do you want consulting provider notified?: Yes Primary care physician: Shan Carrillo [facility] Course: This is a 64-year-old patient, with past medical history of severe right hip osteoarthritis, who failed nonsurgical conservative management. On 12/22/2024 the patient presented to the [facility] pre-op department for scheduled direct anterior total hip arthroplasty with Dr. Wray. The patient tolerated the procedure well. The patient was transferred to the orthopedic floor. The patient had no acute events over night. The patient's pain has been well- controlled. Patient was examined at bedside. Patient is resting comfortably in bed. No apparent distress. They are awake, alert and able to answer questions. Inspection: The surgical dressing is intact, there is no drainage or strikethrough. The skin surrounding the dressing is free of erythema. There is mild swelling in the operative thigh. Palpation: The operative calf is soft to compression. No calf tenderness. Neurovascular: Operative femoral nerve function is intact. The patient is able to actively plantarflex and dorsiflex their operative ankle and toes. Operative extremity sensation is intact to light touch throughout Their operative foot appears well perfused, palpable dorsalis pedis pulse, and capillary refill under 2 seconds. Patient will work with physical therapy and likely discharge home today. Aspirin 81 mg twice daily for anticoagulation Patient has [place] 5/325 mg at home and can resume at home and call our office for refill. GI prophylaxis patient can continue their home Protonix. Please see med rec for a list of accurate medications. Assessment: Status post right total hip arthroplasty Right hip osteoarthritis Right hip pain Multiple medical problems Plan - Discharge Summary Discharge Rx Participant: No New Discharge Prescriptions: New Aspirin 81 mg PO BID #60 tab No Action Latanoprost/Pf [Latanoprost 0.005% Eye Drop] 1 drop BOTH EYES HS Isosorbide Mononitrate ER [Imdur] 30 mg PO DAILY buPROPion HCL [Wellbutrin SR] 150 mg PO DAILY PARoxetine HCL [Paxil] 40 mg PO DAILY Metoprolol Succinate (ER) [Toprol XL] 50 mg PO DAILY amLODIPine BESYLATE/BENAZEPRIL [amLODIPine BESYLATE/BENAZEPRIL 5-40 MG] 1 cap PO DAILY Zinc Gluconate [Zinc] 50 mg PO DAILY Vitamin B Complex 1 cap PO DAILY Ubidecarenone [Co Q-10] 300 mg PO DAILY Albuterol Sulfate [Albuterol Sulfate Hfa] 1 - 2 puff PO RT-Q4H PRN PRN Reason: Shortness Of Breath Furosemide [Lasix] 20 mg PO DAILY Aspirin 81 mg PO DAILY Rosuvastatin Calcium [Crestor] 40 mg PO DAILY Pantoprazole [Protonix] 40 mg PO DAILY Dapagliflozin Propanediol [Farxiga] 5 mg PO DAILY Sennosides-Docusate Sodium [Senokot-S] 1 tab PO BID PRN #60 tablet PRN Reason: Constipation Tamsulosin [Flomax] 0.4 mg PO PC-BRKFST #30 cap Discharge Medication List Isosorbide Mononitrate ER [Imdur] 30 mg PO DAILY 05/13/18 [History] Latanoprost/Pf [Latanoprost 0.005% Eye Drop] 1 drop BOTH EYES HS 05/13/18 [History] Metoprolol Succinate (ER) [Toprol XL] 50 mg PO DAILY 05/13/18 [History] PARoxetine HCL [Paxil] 40 mg PO DAILY 05/13/18 [History] buPROPion HCL [Wellbutrin SR] 150 mg PO DAILY 05/13/18 [History] Rosuvastatin Calcium [Crestor] 40 mg PO DAILY 01/07/21 [History] amLODIPine BESYLATE/BENAZEPRIL [amLODIPine BESYLATE/BENAZEPRIL 5-40 MG] 1 cap PO DAILY 01/07/21 [History] Albuterol Sulfate [Albuterol Sulfate Hfa] 1 - 2 puff PO RT-Q4H PRN 04/28/24 [History] Dapagliflozin Propanediol [Farxiga] 5 mg PO DAILY 04/28/24 [History] Pantoprazole [Protonix] 40 mg PO DAILY 04/28/24 [History] Ubidecarenone [Co Q-10] 300 mg PO DAILY 04/28/24 [History] Vitamin B Complex 1 cap PO DAILY 04/28/24 [History] Zinc Gluconate [Zinc] 50 mg PO DAILY 04/28/24 [History] Furosemide [Lasix] 20 mg PO DAILY 08/01/24 [History] Sennosides-Docusate Sodium [Senokot-S] 1 tab PO BID PRN #60 tablet 08/07/24 [Rx] Tamsulosin [Flomax] 0.4 mg PO PC-BRKFST #30 cap 08/07/24 [Rx] Aspirin 81 mg PO DAILY 12/19/24 [History] Aspirin 81 mg PO BID #60 tab 12/25/24 [Rx] Follow up Appointment(s)/Referral(s): [facility], [NON-STAFF] - 1-2 Days (will call to set up appointment any questions please call [facility]. ) Sid Wray MD [Medical Doctor] - 2 Weeks Activity/Diet/Wound Care/Special Instructions: Per OA, patient will be doing his own home physical therapy on d/c 1. Weight-bear as tolerated on your operative extremity unless instructed otherwise. Use a walker or other assistive device to ambulate. 2. Leave surgical dressing in place. If your dressing becomes saturated with blood, there is drainage, or the dressing becomes loose please contact the office. 3. It is okay to shower with your surgical dressing, but do not submerge in water (no hot tubs, bath's, swimming etc.) 4. Anticoagulation: Patient takes aspirin 81 mg daily at home, patient should take aspirin 81 mg twice daily for 30 days, and then return to regular dose of aspirin. A prescription was sent for aspirin 81 mg twice daily to [facility]. 5. Patient has [place] 5/325 mg at home, patient can resume at home and call our office for refill. 6. Keep all follow-up appointments as scheduled. You will usually be seen in 1-2 weeks following surgery. 7. Please contact the office with any questions or concerns [phone] GI prophylaxis. Continue home Protonix 40 mg orally once every day. Discharge Disposition: HOME SELF-CARE
--- NOTE | 2024-12-25 09:50 | P.PN ---
Subjective Progress Note Date: 12/25/24 HISTORY OF PRESENT ILLNESS: This is a 64-year-old male with a previous medical history significant for coronary artery disease status post PCI x 3 in 2012 under the care of Dr. Jimenez, hypertension and hypertensive cardiovascular disease, mixed hyperlipidemia, gout, enlarged prostate, GERD with esophagitis, glaucoma, osteoarthritis, chronic THC use, remote tobacco use and dependence, patient u nderwent right anterior direct total hip arthroplasty that was done successfully by Dr. Wray and we were asked to see the patient for postoperative medical management patient is laying in bed currently on 2 L nasal cannula, his oxygen saturation was around 9192%,, he is tolerating his treatment very well, he was instructed to use incentive spirometer, he was seen in consultation by physical therapy, continue current pain management, continue albuterol as needed, patient is complaining of some pain in the right hip area, it was described as 7 out of 10 intensity he did receive some pain medication from his nurse just few minutes ago. 12/23: Patient is sitting up in a chair today, his pain was described as a 5 out of 10 in intensity, he is using ice packs, he continues to be on current pain management, he is using incentive spirometer, he is using baby aspirin 81 mg orally twice every day for DVT prophylaxis, continue to work with physical therapy, I spoke with the orthopedic service and they are planning to keep the patient in the hospital until Wednesday morning. 12/24: Patient is doing better today, he is moving around using his walker, continues to have about 5-7 out of 10 intensity pain in the right hip area, he has been getting his pain medication, he continues to use incentive spirometer, continue with albuterol as needed, patient will likely be discharged home tomorrow morning, follow-up with orthopedic surgery as an outpatient. 12/25: Patient sitting up in a chair no apparent distress, is feeling a lot better today, he denies any chest pain, shortness of breath, he continues to use incentive spirometer, he is getting released today by orthopedic surgery he will follow-up with us as an outpatient in the next 1 or 2 weeks. Continue current treatment plan. REVIEW OF SYSTEMS: Constitutional: No documented fever, no chills, no night sweats. No weight change. No weakness, fatigue or lethargy. No daytime sleepiness. EENT: No headache. No blurred vision or double vision, no loss of vision. No loss of Hearing, no ringing in the ears, no dizziness. No nasal drainage or congestion. No epistaxis. No sore throat. Lungs: No shortness of breath, no cough, no sputum production. No wheezing. Reports dyspnea with activity. Cardiovascular: No chest pain, no lower extremity edema. No palpitations. No paroxysmal nocturnal dyspnea. No orthopnea. No lightheadedness or dizziness. No syncopal episodes. Abdominal: Reports no abdominal pain. No nausea, vomiting. No diarrhea. No constipation. No bloody or tarry stools reports loss of appetite. Genitourinary: No dysuria, increased frequency, urgency. No urinary retention. Musculoskeletal: No myalgias. No muscle weakness, mild gait dysfunction, no frequent falls. positive for back pain. No neck pain, positive for right hip pain Integumentary: right anterior hip wound is covered with dressing, no lesions. No rash or pruritus. No unusual bruising. No change in hair or nails. Neurologic: No aphasia. No facial droop. No change in mentation. No head injury. No headache. No paralysis. No paresthesia, Psychiatric: No depression. positive for anxiety. No mood swings. Endocrine: No abnormal blood sugars. No weight change. PHYSICAL EXAMINATION: General: 64-year-old male laying down in bed in no apparent distress. HEENT: Head is atraumatic, normocephalic, pupils were equal round reactive to light and recommendation, extraocular muscle movement were intact, sclera nonict justina, conjunctivae were pale, mucous membranes of the mouth are somewhat dry. Neck: Supple, no JVP, normal carotid upstroke bilaterally, no lymphadenopathy. Chest: Decreased breath sounds at the bases, few rhonchi, minimal expiratory wheezes, no chest wall tenderness, no intercostal retractions. Heart: First heart sound is normal, second heart sound is normal there is systolic ejection murmur 2/6 located in the left sternal border. Abdomen: Soft, tenderness to the left lower quadrant, nondistended, positive bowel sounds. Extremities: There is no edema no calf tenderness DP +2 bilaterally, right hip anterior incision is covered with dressing. Neurologic examination: Patient is awake alert and oriented x3, cranial nerves II-12 appear grossly intact, muscle power were 5 out of 5 in upper extremities and 5 out of 5 in bilateral lower extremities, deep tendon reflexes normal bilaterally ASSESSMENT AND PLAN: 1. Postoperative day # 3 status post direct anterior right total hip arthroplasty. Patient was instructed about the usage of incentive spirometer to reduce the incidence of atelectasis and healthcare associated pneumonia, continue with current pain management, physical therapy evaluation, increase activity, resume home medication, continue current pain management as tolerated. DVT prophylaxis with aspirin 81 mg orally twice every day increase activity level 2. Coronary artery disease status post PCI x 3 in 2011. Continue patient on aspirin 81 mg orally twice every day, metoprolol ER 50 mg orally once every day, atorvastatin 80 mg once every day, monitor the patient's symptoms very closely, continue isosorbide mononitrate 30 mg orally once every day patient follows with cardiology on a regular basis Dr. Jimenez. 3. Hypertension and hypertensive cardiovascular disease. Continue patient on amlodipine benazepril 5/40 mg orally once every day, metoprolol XL 50 mg orally once every day, monitor the patient blood pressure very closely. 4. Mixed hyperlipidemia. Continue patient on atorvastatin 80 mg once every day monitor the patient blood panel, keep LDL 55-70. 5. Enlarged prostate. Monitor the patient for urinary retention. 6. GERD with esophagitis. Continue pantoprazole 40 mg orally once every day. 7. History of gout. Stable at this time. 8. Anxiety disorder. Continue patient on Wellbutrin 150 mg once every day as well as paroxetine 40 mg once every day. 9. Chronic THC use. Patient was advised against its use. 10. History of glaucoma. Continue Xalatan 0.005% 1 drop in both eyes at bedtime 11. COPD. Continue patient on albuterol HFA 2 puffs inhalation every 4 hours as needed. 12. Left renal cyst has been followed by a CT urogram on yearly basis. 13. DVT prophylaxis. Continue aspirin 81 mg orally twice every day. 14. GI prophylaxis. Continue patient on Protonix 40 mg orally once every day. 15. Patient is medically stable for discharge Objective - Vital Signs Vital signs: Vital Signs Temp 98.1 F 12/25/24 07:05 Pulse 85 12/25/24 07:05 Resp 17 12/25/24 07:05 BP 120/81 12/25/24 07:05 Pulse Ox 94 L 12/25/24 07:05 FiO2 Intake & Output 12/24/24 12/25/24 12/25/24 18:59 06:59 18:59 Intake Total 750 Output Total 800 Balance 750 -800 Intake: Oral 750 Output: Urine 800 Other: Voiding Method Urinal Urinal # Voids 1 - Labs CBC & Chem 7: 12/25/24 03:02 Labs: Abnormal Lab Results - Last 24 Hours (Table) 12/24/24 12/24/24 12/25/24 Range/Units 10:44 20:13 03:02 Hgb 12.4 L (13.0-17.0) g/dL Hct 39.2 L (39.6-50.0) % MCH 26.6 L (27.0-32.0) pg MCHC 31.6 L (32.0-37.0) g/dL RDW 19.2 H (11.5-14.5) % POC Glucose (mg/dL) 132 H 154 H (70-110) mg/dL 12/25/24 Range/Units 06:18 Hgb (13.0-17.0) g/dL Hct (39.6-50.0) % MCH (27.0-32.0) pg MCHC (32.0-37.0) g/dL RDW (11.5-14.5) % POC Glucose (mg/dL) 120 H (70-110) mg/dL
[2024-12-25 11:48] LABS: Glucose,Whole Blood 112 mg/dL (70-110)
== END 2024-12-25 12:10 | disposition home health service (06) ==
LOC: OR 05:44 → 4SSUR 09:30 → OR 12-25 12:10
PROVIDERS: ATTEND Orthopaedic Surgery
DX: M16.11 Unilateral primary osteoarthritis, right hip (principal); I25.10 Atherosclerotic heart disease of native coronary artery without angina pectoris; I25.2 Old myocardial infarction; J44.9 Chronic obstructive pulmonary disease, unspecified; K21.00 Gastro-esophageal reflux disease with esophagitis, without bleeding; N40.0 Benign prostatic hyperplasia without lower urinary tract symptoms; N28.1 Cyst of kidney, acquired; E78.2 Mixed hyperlipidemia; I11.9 Hypertensive heart disease without heart failure; F12.90 Cannabis use, unspecified, uncomplicated; F41.9 Anxiety disorder, unspecified; E11.9 Type 2 diabetes mellitus without complications; F32.A Depression, unspecified; H40.9 Unspecified glaucoma; M10.9 Gout, unspecified; Z95.5 Presence of coronary angioplasty implant and graft; Z82.49 Family history of ischemic heart disease and other diseases of the circulatory system; Z83.3 Family history of diabetes mellitus; Z82.3 Family history of stroke; Z96.641 Presence of right artificial hip joint; Z79.84 Long term (current) use of oral hypoglycemic drugs; Z79.82 Long term (current) use of aspirin; Z79.899 Other long term (current) drug therapy
CPT/HCPCS: 97116 ×2; 97161; 64473; 85025 ×2; 73501; 27130; C1776; J2250; J1100; S0106 ×3; J0690 ×2; J2405; J3010; J1171; J1308